=== PATIENT | male | born 1950 | race Caucasian/White ===

== ENCOUNTER → 2017-07-23 | Outpatient (CLI) | payer MEDICARE, OTHER ==
--- NOTE | 2017-07-23 14:40 | CONS ---
CONSULTATION This is a consultation note for sleep apnea. A 66-year-old male patient was referred to me for evaluation of obstructive sleep apnea as the patient has a quite high suspicion for underlying CHRISSIE and sleep breathing disorder. He is very sleepy and he carries an Randolph score of 16. He goes to bed around 11 p.m., wakes up somewhere between 9 to 10 a.m. in the morning. He wakes up 2 to 3 times in the middle of the night to use the bathroom. He snores and he has been told he quits breathing. Currently, he is living with an uncle and a friend. He prefers to sleep on his back. He watches TV in his bedroom. He has no sleep paralysis, hallucinations or cataplexy. No recent weight gain or weight loss. He is morbidly and chronically obese. PAST MEDICAL HISTORY: Obesity, hypertension, chronic A. fib, diabetes mellitus, hyperlipidemia, tremors, impaired hearing and currently is wearing hearing aids. SURGICAL HISTORY: Cholecystectomy. MEDICATIONS: Include amiodarone 200 mg p.o. daily, aspirin 81 mg p.o. daily, insulin sliding scale with coverage, ferrous sulfate 325 daily, vitamin D 91086 units q. week, hydralazine 100 mg 1 tablet b.i.d., metoprolol 50 mg twice a day, NovoLog mix 70/30, 115 units in the morning and 45 units in the evening, pravastatin 80 mg p.o. daily, Xarelto 20 mg p.o. daily. SOCIAL HISTORY: Ex-smoker who quit in 2009. No history of alcohol, no history of IV drugs. FAMILY HISTORY: Negative for sleep apnea. REVIEW OF SYSTEMS: A 12-point review of system was done. Positive findings are mentioned above in the history of present illness. No history of waking up choking or gasping for air. He has nocturia. No grinding of the teeth. No sleepwalking, no dry mouth. No anxiety or panic attacks, no palpitation, no heartburn. No restlessness in the lower extremities. No sleepwalking or sleep talking. No anxiety, no depression. No claustrophobia. He wakes up tired and sleepy. PHYSICAL EXAMINATION: BP is 161/80, pulse 67, respirations 24, temperature 97.9, saturation 98% on room air. Weight 280. Height is 69-1/2 inches. Neck size 18 inches and BMI is 44.1. GENERAL APPEARANCE: Calm, comfortable, no acute distress. HEAD: Short neck, chronic posterior pharynx, Mallampati class IV. There is no goiter or neck masses. LUNGS: Clear to auscultation. HEART: Sounds are regular. Positive S1, S2. No S3. No murmurs. ABDOMEN: Obese, soft, nontender. Organs could not be adequately palpated. EXTREMITIES: Trace edema. There is no cyanosis or clubbing. IMPRESSION: 1. Obstructive apnea. Sleep apnea as clinically suspected and the patient is currently under investigation. 2. Loud snoring. 3. Chronic hypersomnia with an Randolph score of 19. 4. History of paroxysmal atrial fibrillation. 5. Hypertension. 6. Obesity with a body mass index of 44. 7. Diabetes mellitus. 8. Hyperlipidemia. 9. Tremors. 10.Impaired hearing. PLAN: 1. Encourage weight loss. 2. Recommend sleeping in a sidewise body position with the head of the bed elevated at 20-30 degrees. 3. Will proceed with a screening polysomnogram and make further recommendations, depending on the results of the sleep study. MMODL / IJN: [id number] /
== END | disposition home or self-care (01) ==
LOC: SLEEP 13:16
PROVIDERS: ATTEND Internal Medicine Critical Care Medicine
DX: G47.10 Hypersomnia, unspecified (principal); R06.83 Snoring; I48.0 Paroxysmal atrial fibrillation; I10 Essential (primary) hypertension; E66.9 Obesity, unspecified; E11.9 Type 2 diabetes mellitus without complications; E78.5 Hyperlipidemia, unspecified; R25.1 Tremor, unspecified; H91.90 Unspecified hearing loss, unspecified ear; Z90.49 Acquired absence of other specified parts of digestive tract; Z79.82 Long term (current) use of aspirin; Z79.84 Long term (current) use of oral hypoglycemic drugs; Z68.41 Body mass index [BMI] 40.0-44.9, adult; Z79.4 Long term (current) use of insulin; Z79.899 Other long term (current) drug therapy; Z87.891 Personal history of nicotine dependence
CPT/HCPCS: 99211

== ENCOUNTER 2017-09-03 10:08 | Day surgery (SDC) | payer MEDICARE, OTHER ==
[2017-08-30 10:27] VITALS: BMI 38.6
[~2017-09-03 10:08] MED LIST: LACTATED RINGERS 1,000 ML IV SCH; MIDAZOLAM 2 MG/2 ML VIAL IV PRN; SODIUM CHLORIDE 0.9% 1,000 ML IV SCH; fentaNYL (PF) 50 MCG/ML 2 ML AMP IV PRN
[2017-09-03] MEDS ORDERED: HEPARIN SODIUM 1,000 UN/ML (10ML VL) ONE (10:29)
[2017-09-03 10:54] LABS: Glucose,Whole Blood 304 mg/dL (75-99)
[2017-09-03 10:58] LABS: Basophils # (A) 0.1 k/uL (0-0.2); Basophils % (A) 1 %; Eosinophils # (A) 0.2 k/uL (0-0.7); Eosinophils % (A) 3 %; HCT 49.2 % (39.0-53.0); HGB 16.6 gm/dL (13.0-17.5); Lymphocytes # (A) 1.4 k/uL (1.0-4.8); Lymphocytes % (A) 19 %; MCH 31.7 pg (25.0-35.0); MCHC 33.7 g/dL (31.0-37.0); MCV 93.9 fL (80.0-100.0); Mean Platelet Volume 7.3; Monocytes # (A) 0.6 k/uL (0-1.0); Monocytes % (A) 8 %; Neutrophils % (A) 67 %; Platelet Count 223 k/uL (150-450); RBC 5.24 m/uL (4.30-5.90); RDW 12.8 % (11.5-15.5); WBC 7.4 k/uL (3.8-10.6)
[2017-09-03 11:00] VITALS: PULSE 74; RESP 18; TEMP 98.1
[2017-09-03 11:08] VITALS: BP 182/94
[2017-09-03 11:10] LABS: Calcium 9.3 mg/dL (8.4-10.2); Potassium 4.9 mmol/L (3.5-5.1)
[2017-09-03] MEDS ORDERED: INSULIN ASPART 100 UNIT/ML 1 ML 10 ML VIAL SQ SCH (12:30)
== END 2017-09-03 14:00 | disposition home or self-care (01) ==
LOC: CATHEP 10:08
PROVIDERS: ATTEND Internal Medicine Clinical Cardiac Electrophysiology
DX: I48.0 Paroxysmal atrial fibrillation (principal); Z53.9 Procedure and treatment not carried out, unspecified reason; I25.10 Atherosclerotic heart disease of native coronary artery without angina pectoris; I12.9 Hypertensive chronic kidney disease with stage 1 through stage 4 chronic kidney disease, or unspecified chronic kidney disease; N18.3 Chronic kidney disease, stage 3 (moderate); E11.22 Type 2 diabetes mellitus with diabetic chronic kidney disease; E78.5 Hyperlipidemia, unspecified; I48.92 Unspecified atrial flutter; I25.2 Old myocardial infarction; Z79.01 Long term (current) use of anticoagulants; Z79.4 Long term (current) use of insulin; Z79.899 Other long term (current) drug therapy; Z88.5 Allergy status to narcotic agent; Z87.891 Personal history of nicotine dependence
CPT/HCPCS: 80048; 85025

== ENCOUNTER 2019-12-30 04:42 | Inpatient (IN) | payer MEDICARE, OTHER ==
[2019-12-30] MEDS ORDERED: NITROGLYCERIN-D5W PMX 50 MG in DEXTROSE/WATER 1 250ML.BAG IV STA (04:44)
[2019-12-30] MEDS ORDERED: SODIUM CHLORIDE 0.9% 1,000 ML IV STA (04:44)
[2019-12-30] MEDS ORDERED: MORPHINE SULFATE 4 MG/ML SYRINGE IV STA (04:45)
[2019-12-30 05:04] LABS: Basophils # (A) 0.1 k/uL (0-0.2); Basophils % (A) 1 %; Eosinophils # (A) 0.4 k/uL (0-0.7); Eosinophils % (A) 2 %; HCT 44.5 % (39.0-53.0); HGB 14.5 gm/dL (13.0-17.5); Lymphocytes # (A) 2.5 k/uL (1.0-4.8); Lymphocytes % (A) 17 %; MCHC 32.7 g/dL (31.0-37.0); Mean Platelet Volume 7.5; Monocytes # (A) 0.8 k/uL (0-1.0); Monocytes % (A) 5 %; Neutrophils # (A) 10.8 k/uL (1.3-7.7); Neutrophils % (A) 73 %; Platelet Count 316 k/uL (150-450); RBC 4.54 m/uL (4.30-5.90); WBC 14.8 k/uL (3.8-10.6)
[2019-12-30 05:15] LABS: Albumin 4.4 g/dL (3.5-5.0); Calcium 8.8 mg/dL (8.4-10.2); D-Dimer 0.52 mg/L FEU (<0.60); Partial Thromboplastin Time 30.4 sec (22.0-30.0); Potassium 4.4 mmol/L (3.5-5.1); Prothrombin Time 10.8 sec (9.0-12.0); Total Bilirubin 0.6 mg/dL (0.2-1.3); Total Protein 7.8 g/dL (6.3-8.2)
--- NOTE | 2019-12-30 05:25 | XR ---
EXAM: XR Chest, 1 View CLINICAL HISTORY: ITS.REASON XR Reason: dyspnea TECHNIQUE: Frontal view of the chest. COMPARISON: No relevant prior studies available. FINDINGS/IMPRESSION: Patchy perihilar opacities, suspicious for mild pulmonary edema. Trace bilateral pleural effusions. No pneumothorax. Cardiomegaly.
[2019-12-30] MEDS: FUROSEMIDE 10 MG/ML 4 ML VIAL IV SCH ×2 (07:07→18:13)
--- NOTE | 2019-12-30 07:45 | ED ---
SOB HPI - General Chief Complaint: Shortness of Breath Stated Complaint: Respiratory Distress Time Seen by Provider: 12/30/19 04:44 Source: patient, EMS Mode of arrival: EMS Limitations: no limitations - History of Present Illness Initial Comments: This patient is 69-year-old man with history of previous episodes of heart failure who states that he has had some worsening shortness of breath going on for number days. Over the tonight's seem to be getting much worse and EMS was called. Patient states that his breathing is worse if he lies flat. Patient denies fever or chills. No chest pain. Occasional cough. He has not noted leg pain or swelling. No change in urination or bowel movements. MD Complaint: shortness of breath -: days(s) Severity: severe Severity scale (1-10): 0 Consistency: constant Improves With: oxygen Worsens With: lying flat Known History Of: congestive heart failure Associated Symptoms: denies other symptoms Treatments Prior to Arrival: oxygen, bronchodilator - Related Data Home Oxygen Therapy: No Home Medications Medication Instructions Recorded Confirmed Ferrous Sulfate [Iron] 325 mg PO DAILY 08/30/17 12/30/19 Insuln Asp Prt/Insulin Aspart 6 unit SQ W/SUPPER 08/30/17 12/30/19 [NovoLOG MIX 70-30 VIAL] Insuln Asp Prt/Insulin Aspart 12 unit SQ QAM 08/30/17 12/30/19 [NovoLOG MIX 70-30 VIAL] Pravastatin Sodium 80 mg PO HS 08/30/17 12/30/19 Rivaroxaban [Xarelto] 20 mg PO DAILY 08/30/17 12/30/19 hydrALAZINE HCL [Apresoline] 100 mg PO TID 08/30/17 12/30/19 Losartan Potassium 50 mg PO DAILY 12/30/19 12/30/19 Metoprolol Succinate [Toprol XL] 100 mg PO DAILY 12/30/19 01/01/20 Omeprazole 40 mg PO DAILY 12/30/19 12/30/19 metFORMIN HCL 500 mg PO BID 12/30/19 12/30/19 Previous Rx's Medication Instructions Recorded Furosemide [Lasix] 40 mg PO BID #0 tablet 01/01/20 Spironolactone [Aldactone] 25 mg PO DAILY #0 tablet 01/01/20 Allergies Allergy/AdvReac Type Severity Reaction Status Date / Time codeine AdvReac Severe Verified 12/30/19 08:19 insomnia Review of Systems ROS Statement: Those systems with pertinent positive or pertinent negative responses have been documented in the HPI. ROS Other: All systems not noted in ROS Statement are negative. Constitutional: Denies: fever, chills, weakness Respiratory: Reports: as per HPI, cough, dyspnea. Denies: hemoptysis Cardiovascular: Reports: orthopnea. Denies: chest pain, palpitations, edema, syncope Gastrointestinal: Denies: abdominal pain, nausea, vomiting Genitourinary: Denies: dysuria, hematuria Musculoskeletal: Denies: back pain Skin: Denies: rash Neurological: Denies: headache, weakness, numbness Past Medical History Past Medical History: Unable to Obtain History of Any Multi-Drug Resistant Organisms: Unobtainable Past Surgical History: Unable to Obtain Past Psychological History: Unable to Obtain Smoking Status: Unknown if ever smoked Past Alcohol Use History: Unable to Obtain Past Drug Use History: Unable to Obtain - Past Family History Father Family Medical History: Myocardial Infarction ([place]) Additional Family Medical History / Comment(s): Father of a [place] but pt cannot recall at what age. Mother Family Medical History: Cancer Additional Family Medical History / Comment(s): Pt cannot recall type of cancer. General Exam Limitations: no limitations General appearance: alert, in no apparent distress Head exam: Present: atraumatic, normocephalic Eye exam: Present: normal appearance. Absent: scleral icterus, conjunctival injection Neck exam: Present: normal inspection Respiratory exam: Present: respiratory distress, wheezes, rales, accessory muscle use. Absent: normal lung sounds bilaterally, rhonchi, stridor, decreased breath sounds, prolonged expiratory Cardiovascular Exam: Present: regular rate, normal rhythm, normal heart sounds. Absent: systolic murmur, diastolic murmur, rubs GI/Abdominal exam: Present: soft. Absent: tenderness, guarding, rebound, rigid Extremities exam: Present: normal inspection, normal capillary refill. Absent: pedal edema, calf tenderness Back exam: Present: normal inspection. Absent: CVA tenderness (R), CVA tenderness (L) Neurological exam: Present: alert Skin exam: Present: warm, dry, intact, normal color. Absent: rash Course Vital Signs 12/30/19 12/30/19 12/30/19 04:45 04:55 05:00 Temperature 97.4 F L Pulse Rate 86 75 Respiratory 24 44 H 42 H Rate Blood Pressure 153/90 O2 Sat by Pulse 87 L 96 Oximetry 12/30/19 12/30/19 12/30/19 05:05 05:25 06:30 Temperature Pulse Rate 78 70 Respiratory 32 H 24 Rate Blood Pressure 144/106 150/82 129/80 O2 Sat by Pulse 95 98 Oximetry 12/30/19 12/30/19 12/30/19 06:50 07:25 09:00 Temperature 98.2 F Pulse Rate 66 64 70 Respiratory 20 20 18 Rate Blood Pressure 119/76 123/75 137/85 O2 Sat by Pulse 100 100 96 Oximetry 12/30/19 12/30/19 10:25 11:41 Temperature 98.2 F Pulse Rate 68 67 Respiratory 18 22 Rate Blood Pressure 145/77 131/106 O2 Sat by Pulse 98 97 Oximetry Medical Decision Making - Medical Decision Making Patient is 69-year-old man brought by EMS to be evaluated for respiratory distress. Arrival he was hypertensive and patient placed on BiPAP and given IV nitroglycerin aliquots by myself at the bedside with constant reevaluation. This did improve his blood pressure and the respiratory distress and then began to resolve as well. Patient admitted with cardiology consultation and echocardiogram scheduled. - Lab Data Result diagrams: 12/30/19 04:53 12/31/19 07:50 Lab Results 12/30/19 12/30/19 12/30/19 Range/Units 04:53 04:53 04:53 WBC 14.8 H (3.8-10.6) k/uL RBC 4.54 (4.30-5.90) m/uL Hgb 14.5 (13.0-17.5) gm/dL Hct 44.5 (39.0-53.0) % MCV 98.0 (80.0-100.0) fL MCH 32.0 (25.0-35.0) pg MCHC 32.7 (31.0-37.0) g/dL RDW 13.0 (11.5-15.5) % Plt Count 316 (150-450) k/uL Neutrophils % 73 % Lymphocytes % 17 % Monocytes % 5 % Eosinophils % 2 % Basophils % 1 % Neutrophils # 10.8 H (1.3-7.7) k/uL Lymphocytes # 2.5 (1.0-4.8) k/uL Monocytes # 0.8 (0-1.0) k/uL Eosinophils # 0.4 (0-0.7) k/uL Basophils # 0.1 (0-0.2) k/uL PT 10.8 (9.0-12.0) sec INR 1.0 (<1.2) APTT 30.4 H (22.0-30.0) sec D-Dimer 0.52 (<0.60) mg/L FEU Sodium 138 (137-145) mmol/L Potassium 4.4 (3.5-5.1) mmol/L Chloride 108 H (98-107) mmol/L Carbon Dioxide 21 L (22-30) mmol/L Anion Gap 9 mmol/L BUN 31 H (9-20) mg/dL Creatinine 1.62 H (0.66-1.25) mg/dL Est GFR (CKD-EPI)AfAm 49 (>60 ml/min/1.73 sqM) Est GFR (CKD-EPI)NonAf 42 (>60 ml/min/1.73 sqM) Glucose 207 H (74-99) mg/dL Estimated Ave Glu mg/dL Hemoglobin A1c (4.0-6.0) % Plasma Lactic Acid Russell (0.7-2.0) mmol/L Calcium 8.8 (8.4-10.2) mg/dL Total Bilirubin 0.6 (0.2-1.3) mg/dL AST 21 (17-59) U/L ALT 16 (4-49) U/L Alkaline Phosphatase 126 (38-126) U/L Troponin I (0.000-0.034) ng/mL NT-Pro-B Natriuret Pep pg/mL Total Protein 7.8 (6.3-8.2) g/dL Albumin 4.4 (3.5-5.0) g/dL 12/30/19 12/30/19 12/30/19 Range/Units 04:53 04:53 04:53 WBC (3.8-10.6) k/uL RBC (4.30-5.90) m/uL Hgb (13.0-17.5) gm/dL Hct (39.0-53.0) % MCV (80.0-100.0) fL MCH (25.0-35.0) pg MCHC (31.0-37.0) g/dL RDW (11.5-15.5) % Plt Count (150-450) k/uL Neutrophils % % Lymphocytes % % Monocytes % % Eosinophils % % Basophils % % Neutrophils # (1.3-7.7) k/uL Lymphocytes # (1.0-4.8) k/uL Monocytes # (0-1.0) k/uL Eosinophils # (0-0.7) k/uL Basophils # (0-0.2) k/uL PT (9.0-12.0) sec INR (<1.2) APTT (22.0-30.0) sec D-Dimer (<0.60) mg/L FEU Sodium (137-145) mmol/L Potassium (3.5-5.1) mmol/L Chloride (98-107) mmol/L Carbon Dioxide (22-30) mmol/L Anion Gap mmol/L BUN (9-20) mg/dL Creatinine (0.66-1.25) mg/dL Est GFR (CKD-EPI)AfAm (>60 ml/min/1.73 sqM) Est GFR (CKD-EPI)NonAf (>60 ml/min/1.73 sqM) Glucose (74-99) mg/dL Estimated Ave Glu mg/dL Hemoglobin A1c (4.0-6.0) % Plasma Lactic Acid Russell 1.1 (0.7-2.0) mmol/L Calcium (8.4-10.2) mg/dL Total Bilirubin (0.2-1.3) mg/dL AST (17-59) U/L ALT (4-49) U/L Alkaline Phosphatase (38-126) U/L Troponin I <0.012 (0.000-0.034) ng/mL NT-Pro-B Natriuret Pep 1970 pg/mL Total Protein (6.3-8.2) g/dL Albumin (3.5-5.0) g/dL 12/30/19 Range/Units 04:53 WBC (3.8-10.6) k/uL RBC (4.30-5.90) m/uL Hgb (13.0-17.5) gm/dL Hct (39.0-53.0) % MCV (80.0-100.0) fL MCH (25.0-35.0) pg MCHC (31.0-37.0) g/dL RDW (11.5-15.5) % Plt Count (150-450) k/uL Neutrophils % % Lymphocytes % % Monocytes % % Eosinophils % % Basophils % % Neutrophils # (1.3-7.7) k/uL Lymphocytes # (1.0-4.8) k/uL Monocytes # (0-1.0) k/uL Eosinophils # (0-0.7) k/uL Basophils # (0-0.2) k/uL PT (9.0-12.0) sec INR (<1.2) APTT (22.0-30.0) sec D-Dimer (<0.60) mg/L FEU Sodium (137-145) mmol/L Potassium (3.5-5.1) mmol/L Chloride (98-107) mmol/L Carbon Dioxide (22-30) mmol/L Anion Gap mmol/L BUN (9-20) mg/dL Creatinine (0.66-1.25) mg/dL Est GFR (CKD-EPI)AfAm (>60 ml/min/1.73 sqM) Est GFR (CKD-EPI)NonAf (>60 ml/min/1.73 sqM) Glucose (74-99) mg/dL Estimated Ave Glu mg/dL 171 Hemoglobin A1c 7.6 H (4.0-6.0) % Plasma Lactic Acid Russell (0.7-2.0) mmol/L Calcium (8.4-10.2) mg/dL Total Bilirubin (0.2-1.3) mg/dL AST (17-59) U/L ALT (4-49) U/L Alkaline Phosphatase (38-126) U/L Troponin I (0.000-0.034) ng/mL NT-Pro-B Natriuret Pep pg/mL Total Protein (6.3-8.2) g/dL Albumin (3.5-5.0) g/dL - EKG Data -: EKG Interpreted by [place] EKG shows normal: sinus rhythm, axis (Normal), intervals (Normal), QRS complexes (Possible old septal infarct), ST-T waves (Normal) Rate: normal (Rate 83 bpm) Critical Care Time Critical Care Time: Yes (35 minutes) Disposition Clinical Impression: Acute pulmonary edema, Congestive heart failure, Acute kidney injury Disposition: ADMITTED IP TO THIS HOSP Condition: Fair
[2019-12-30 12:02] LABS: Glucose,Whole Blood 169 mg/dL (75-99)
[2019-12-30] MEDS ORDERED: LOSARTAN 50 MG TAB PO SCH (12:30)
[2019-12-30] MEDS ORDERED: METOPROLOL SUCCINATE (ER) 100 MG TAB.ER.24H PO SCH (12:30)
[2019-12-30] MEDS ORDERED: DILTIAZEM ORAL 60 MG TAB PO SCH (12:30)
[2019-12-30] MEDS: hydrALAZINE HCL 50 MG TAB PO SCH ×3 (12:54→21:00)
[2019-12-30] MEDS ORDERED: LOSARTAN 50 MG TAB PO STA (13:03)
[2019-12-30] MEDS ORDERED: cloNIDine HCL 0.2 MG TAB PO SCH (13:15)
[2019-12-30] MEDS: INSULN ASP PRT/INSULIN ASPART 100 UNIT/ML 10 ML VIAL SQ SCH ×2 (13:31→18:11)
[2019-12-30] MEDS: PANTOPRAZOLE 40 MG TABLET PO SCH (13:31)
--- NOTE | 2019-12-30 13:48 | ECHOF ---
Referral Reason:CHF exacerbation MEASUREMENTS -------- HEIGHT: 180.3 cm WEIGHT: 99.8 kg BP: 119/76 RVIDd: 2.4 cm (< 3.3) IVSd: 1.4 cm (0.6 - 1.1) LVIDd: 5.1 cm (3.9 - 5.3) LVPWd: 1.2 cm (0.6 - 1.1) IVSs: 1.7 cm LVIDs: 2.1 cm LVPWs: 2.1 cm Ao Diam: 2.4 cm (2.0 - 3.7) AV Cusp: 1.9 cm (1.5 - 2.6) LA Diam: 2.7 cm (2.7 - 3.8) MV EXCURSION: 14.577 mm (> 18.000) MV EF SLOPE: 60 mm/s (70 - 150) EPSS: 0.8 cm MV E Cody: 1.08 m/s MV DecT: 175 ms MV A Cody: 0.53 m/s MV E/A Ratio: 2.02 RAP: 5.00 mmHg RVSP: 9.56 mmHg FINDINGS -------- This was a technically difficult study with suboptimal views. The left ventricular size is normal. There is mild concentric left ventricular hypertrophy. Overa ll left ventricular systolic function is normal with, an EF between 55 - 60 %. The right ventricle is normal in size. The left atrial size is normal. The right atrial size is normal. Lumason used The aortic valve was not well visualized. The mitral valve is normal. There is trace mitral regurgitation. The tricuspid valve appears structurally normal. Trace tricuspid regurgitation present. Right elham tricular systolic pressure is normal at < 35 mmHg. The pulmonic valve was not well visualized. The aortic root size is normal. IVC Not well visulized. There is no pericardial effusion. CONCLUSIONS -------- 1. The left ventricular size is normal. 2. There is mild concentric left ventricular hypertrophy. 3. Overall left ventricular systolic function is normal with, an EF between 55 - 60 %. 4. There is trace mitral regurgitation. 5. Trace tricuspid regurgitation present. 6. There is no pericardial effusion. SWEATER DESIGNER: Yennifer Craft RD
--- NOTE | 2019-12-30 13:53 | P.CRDCN ---
History of Present Illness History of present illness: HISTORY OF PRESENTING ILLNESS This is a pleasant 69-year-old male past medical history significant for paroxysmal atrial fibrillation, hypertension and dyslipidemia. He follows in the office with Dr. Rivas. He recently saw Dr. Rivas 09/2019 after not being in the office since 2018. Prior to coming to the office he had been non- compliant with all of his medications including anti-diabetic medications. Supposedly he has been taking his medications recently. We have been asked to see in consultation for heart failure. He called EMS last night due to worsening shortness of breath over the previous couple of days. He was having orthopnea and PND as well. He denies any associated chest pain, dizziness or palpitations. On arrival he was quite tachyneic with a pulse ox of 87%. Blood pressures were around 150 systolic. He was placed on bipap, started on nitro infusion and given IV lasix. He is currently seen and examined sitting up in bed in no acute distress. His breathing is quite stable with no tachynea or hypoxia noted. In September 2019 he was admitted into [facility] and underwent cardiac evaluation including echocardiogram that revealed preserved LV systolic function with ejection fraction 55-60% with no evidence of wall motion abnormalities and moderate concentric LVH. He underwent cardiac catheterization in 2011 revealing a 50% disease in the mid LAD, mild irregularities of the RCA and normal circumflex artery. Most recent stress test in the office with a Lexiscan stress test in 2017 was negative for reversibility. DIAGNOSTICS EKG reveals sinus mechanism with poor R-wave progression. Chest xray reveals patchy perihilar opacity suspicious for mild pulmonary edema with trace bilateral pleural effusions. Laboratory reviewed, WBC 14.8, hemoglobin 14.5, platelets 316, d-dimer 0.52, sodium 138, potassium 4.4, creatinine 1.62, troponins negative 3 and NT proBNP 1970. Current cardiac medications include hydralazine 100 mg 3 times a day, pravastatin 80 mg daily, Xarelto 20 mg daily, diltiazem 60 mg 3 times a day, losartan 50 mg daily and Toprol 100 mg twice a day. REVIEW OF SYSTEMS At the time of my exam: CONSTITUTIONAL: Denies fever or chills. CARDIOVASCULAR: Complains of shortness of breath and orthopnea. Denies chest pain, PND or palpitations. RESPIRATORY: Denies cough. GASTROINTESTINAL: Denies abdominal pain, diarrhea, constipation, nausea or vomiting. MUSCULOSKELETAL: Denies myalgias. NEUROLOGIC: Denies numbness, tingling or weakness. ENDOCRINE: Denies fatigue, weight change, polydipsia or polyurina. GENITOURINARY: Denies burning, hematuria or urgency with micturation. HEMATOLOGIC: Denies history of anemia or bleeding. PHYSICAL EXAMINATION Blood pressure 184/85 heart rate 73 afebrile and maintaining oxygen saturation on nasal cannula. CONSTITUTIONAL: No apparent distress. HEENT: Head is normocephalic. Pupils are equal, round. Sclerae anicteric. Mucous membranes of the mouth are moist. No JVD. Right carotid bruit auscultated, no bruit on the left. CHEST EXAMINATION: Soft bibasilar rales, diminished bilaterally, no wheezes or rhonchi. No chest wall tenderness is noted on palpation or with deep breathing. HEART EXAMINATION: Regular rate and rhythm. S1, S2 heard. No murmurs, gallops or rub. ABDOMEN: Soft, nontender. Positive bowel sounds. EXTREMITIES: 2+ peripheral pulses, no lower extremity edema and no calf tenderness. NEUROLOGIC EXAMINATION: Patient is awake, alert and oriented x3. ASSESSMENT Hypoxic respiratory failure Acute congestive heart failure, likely diastolic in recent echocardiogram revealing preserved LV systolic function although very mild. Leukocytosis Paroxysmal atrial fibrillation on xarelto, currently maintaining sinus mechanism Hypertension Dyslipidemia PLAN He does not appear to be in significant heart failure at the time of our evaluation. BNP is only slightly elevated. We will continue gently diuresis and request a high resolution CT of the chest to assess for underlying pulmonary fibrosis. Discontinue cardizem. Decrease toprol to 100 mg daily. Continue losartan 50 mg daily, xarelto 20 mg at HS and hydralazine 100 mg TID. Document accurate intake and output along with daily weights. Follow renal function and electrolytes in the morning. Recent echocardiogram reviewed from [facility], repeat ordered here in the ER will also be reviewed. Further recommendations to follow based on clinical course. Thank you kindly for this consultation. Nurse Practitioner note has been reviewed, I agree with a documented findings and plan of care. Patient was seen and examined. Past Medical History Past Medical History: Atrial Fibrillation, Asthma, Coronary Artery Disease (CAD), Heart Failure, Diabetes Mellitus, GI Bleed, Hearing Disorder / Deafness, Hyperlipidemia, Hypertension Additional Past Medical History / Comment(s): Afib with RVR/ablation, IDDM type II, pt denies hx of CHRISSIE/CKD as documented in past medical record and does not know why he takes iron, EKUK bilaterally-wears aide in R ear History of Any Multi-Drug Resistant Organisms: None Reported Past Surgical History: Cardiac Ablation, Cholecystectomy, Heart Catheterization Additional Past Surgical History / Comment(s): 2011 cardiac cath, R eye surgery /lens implant-pt believes d/t infection, colonoscopy. Past Anesthesia/Blood Transfusion Reactions: No Reported Reaction Smoking Status: Former smoker - Past Family History Father Family Medical History: Myocardial Infarction ([place]) Additional Family Medical History / Comment(s): Father of a [place] but pt cannot recall at what age. Mother Family Medical History: Cancer Additional Family Medical History / Comment(s): Pt cannot recall type of cancer. Medications and Allergies Home Medications Medication Instructions Recorded Confirmed Type Ferrous Sulfate [Iron] 325 mg PO DAILY 08/30/17 12/30/19 History Insuln Asp Prt/Insulin Aspart 6 unit SQ W/SUPPER 08/30/17 12/30/19 History [NovoLOG MIX 70-30 VIAL] Insuln Asp Prt/Insulin Aspart 12 unit SQ QAM 08/30/17 12/30/19 History [NovoLOG MIX 70-30 VIAL] Pravastatin Sodium 80 mg PO HS 08/30/17 12/30/19 History Rivaroxaban [Xarelto] 20 mg PO DAILY 08/30/17 12/30/19 History hydrALAZINE HCL [Apresoline] 100 mg PO TID 08/30/17 12/30/19 History Losartan Potassium 50 mg PO DAILY 12/30/19 12/30/19 History Metoprolol Succinate [Toprol XL] 100 mg PO BID 12/30/19 12/30/19 History Omeprazole 40 mg PO DAILY 12/30/19 12/30/19 History dilTIAZem HCL [Diltiazem HCl] 60 mg PO TID 12/30/19 12/30/19 History metFORMIN HCL 500 mg PO BID 12/30/19 12/30/19 History Allergies Allergy/AdvReac Type Severity Reaction Status Date / Time codeine AdvReac Severe Verified 12/30/19 08:19 insomnia Physical Exam Vitals: Vital Signs Temp Pulse Pulse Resp BP BP Pulse Ox 12/30/19 12:31 97.4 F L 73 22 184/85 98 12/30/19 12:10 97.4 F L 12/30/19 12:00 22 12/30/19 11:41 98.2 F 67 22 131/106 97 12/30/19 10:25 68 18 145/77 98 12/30/19 09:00 70 18 137/85 96 12/30/19 07:25 98.2 F 64 20 123/75 100 12/30/19 06:50 66 20 119/76 100 12/30/19 06:30 129/80 12/30/19 05:25 70 24 150/82 98 12/30/19 05:05 78 32 H 144/106 95 12/30/19 05:00 75 42 H 153/90 96 12/30/19 04:55 44 H 12/30/19 04:45 97.4 F L 86 24 87 L Intake and Output 12/29/19 12/30/19 12/30/19 22:59 06:59 14:59 Intake Total 4.075 Balance 4.075 Intake: Intake, IV Titration 4.075 Amount Nitroglycerin-D5w Pmx 50 4.075 mg In Dextrose/Water 1 250ml.bag @ 5 MCG/MIN 1.5 mls/hr IV .Q24H STA Rx#: [id number] Other: Weight 99.79 kg 99.79 kg Results 12/30/19 04:53 12/30/19 04:53 Cardiac Enzymes 12/30/19 12/30/19 12/30/19 Range/Units 04:53 04:53 08:17 AST 21 (17-59) U/L Troponin I <0.012 <0.012 (0.000-0.034) ng/mL 12/30/19 Range/Units 11:30 AST (17-59) U/L Troponin I <0.012 (0.000-0.034) ng/mL Coagulation 12/30/19 Range/Units 04:53 PT 10.8 (9.0-12.0) sec APTT 30.4 H (22.0-30.0) sec CBC 12/30/19 Range/Units 04:53 WBC 14.8 H (3.8-10.6) k/uL RBC 4.54 (4.30-5.90) m/uL Hgb 14.5 (13.0-17.5) gm/dL Hct 44.5 (39.0-53.0) % Plt Count 316 (150-450) k/uL Comprehensive Metabolic Panel 12/30/19 Range/Units 04:53 Sodium 138 (137-145) mmol/L Potassium 4.4 (3.5-5.1) mmol/L Chloride 108 H (98-107) mmol/L Carbon Dioxide 21 L (22-30) mmol/L BUN 31 H (9-20) mg/dL Creatinine 1.62 H (0.66-1.25) mg/dL Glucose 207 H (74-99) mg/dL Calcium 8.8 (8.4-10.2) mg/dL AST 21 (17-59) U/L ALT 16 (4-49) U/L Alkaline Phosphatase 126 (38-126) U/L Total Protein 7.8 (6.3-8.2) g/dL Albumin 4.4 (3.5-5.0) g/dL Current Medications Generic Name Dose Route Start Last Admin Trade Name Freq PRN Reason Stop Dose Admin Clonidine 0.2 mg 12/30/19 13:15 Clonidine Hcl 0.2 Mg Tab PO QID NATALYA Furosemide 40 mg 12/30/19 07:00 12/30/19 07:07 Furosemide 10 Mg/Ml 4 Ml Vial IV 40 mg Q12H NATALYA Administration Hydralazine HCl 100 mg 12/30/19 12:30 12/30/19 12:54 Hydralazine Hcl 50 Mg Tab PO 100 mg TID NATALYA Administration Sodium Chloride 1,000 mls @ 20 mls/hr 12/30/19 04:44 12/30/19 04:51 Saline 0.9% IV 12/31/19 04:43 20 mls/hr .Q24H STA Administration Nitroglycerin/Dextrose 50 mg/ 250 mls @ 1.5 mls/hr 12/30/19 04:44 12/30/19 07:33 IV Solution IV 12/31/19 04:43 0 mcg/min .Q24H STA 0 mls/hr Titration Protocol 5 MCG/MIN Insulin Aspart 6 unit 12/30/19 17:30 Insuln Asp Prt/Insulin Aspart 100 Unit/Ml 10 Ml Vial SQ W/SUPPER NATALYA Insulin Aspart 12 unit 12/30/19 13:15 Insuln Asp Prt/Insulin Aspart 100 Unit/Ml 10 Ml Vial SQ QAM NATALYA Losartan Potassium 100 mg 12/30/19 13:03 Losartan 50 Mg Tab PO 12/30/19 13:04 ONCE STA Metoprolol Succinate 100 mg 12/30/19 12:30 12/30/19 12:53 Metoprolol Succinate (Er) 100 Mg Tab.Er.24h PO 100 mg BID NATALYA Administration Non-Formulary Medication 40 mg 12/30/19 13:15 Omeprazole [Omeprazole] PO DAILY NATALYA Pravastatin Sodium 80 mg 12/30/19 21:00 Pravastatin Sodium 80 Mg Tab PO HS NATALYA Rivaroxaban 20 mg 12/30/19 13:15 Rivaroxaban 20 Mg Tab PO DAILY NATALYA Sodium Chloride 10 ml 12/30/19 09:00 12/30/19 10:38 Sodium Chloride 0.9% Flush 10 Ml Syringe IV 10 ml BID NATALYA Administration Intake and Output 12/29/19 12/30/19 12/30/19 22:59 06:59 14:59 Intake Total 4.075 Balance 4.075 Intake: Intake, IV Titration 4.075 Amount Nitroglycerin-D5w Pmx 50 4.075 mg In Dextrose/Water 1 250ml.bag @ 5 MCG/MIN 1.5 mls/hr IV .Q24H STA Rx#: [id number] Other: Weight 99.79 kg 99.79 kg Patient Weight 12/31/19 06:59 Weight 99.79 kg 12/30/19 04:53 12/30/19 04:53
[2019-12-30 14:00] VITALS: BMI 31.5
[2019-12-30 16:52] LABS: Glucose,Whole Blood 247 mg/dL (75-99)
[2019-12-30] MEDS: RIVAROXABAN 20 MG TAB PO SCH (17:45)
--- NOTE | 2019-12-30 19:53 | CT ---
EXAMINATION TYPE: CT chest wo con DATE OF EXAM: 12/30/2019 COMPARISON: 70 radiograph. HISTORY: SOB, CHF CT DLP: 626.2 mGycm. Automated Exposure Control for Dose Reduction was Utilized. TECHNIQUE: CT scan of the thorax is performed without IV contrast. FINDINGS: LUNGS: Small to moderate bilateral pleural effusions with adjacent atelectasis. There is less promine nt interseptal thickening and superimposed hazy opacities elsewhere, compared to same day radiograph. No pneumothorax. MEDIASTINUM: Lack of IV contrast is noted to limit evaluation for mediastinal and especially hilar ad enopathy. There are no definitive greater than 1 cm hilar or mediastinal lymph nodes. No cardiomega ly or pericardial effusion is seen. OTHER: No additional significant abnormality is seen. IMPRESSION: Bilateral [id number] pleural effusions with adjacent atelectasis. Less prominent interseptal thickening and superimposed hazy opacities, may represent resolving inters titial edema.
[2019-12-30 20:23] LABS: Glucose,Whole Blood 206 mg/dL (75-99)
[2019-12-30 20:37] LABS: Hemoglobin A1C 7.6 % (4.0-6.0)
[2019-12-30] MEDS: PRAVASTATIN SODIUM 80 MG TAB PO SCH (21:00)
--- NOTE | 2019-12-30 22:20 | HP ---
HISTORY AND PHYSICAL CHIEF COMPLAINT: Acute shortness of breath. HISTORY OF PRESENT ILLNESS: This is another admission for this 69-year-old white male with a history of hypertension and diabetes. He recently went several months without any medication because he was afraid to come to the office because of the coronavirus. He was just seen in the office several days ago and was doing well. Apparently he became acutely dyspneic. When he came to emergency room he had a significantly elevated blood pressure and it was thought that he had an episode of flash pulmonary edema. He was treated and was improved and was admitted. REVIEW OF SYSTEMS: He denied any headache, visual changes, focal neurologic deficits, chest pain, hemoptysis, orthopnea, abdominal pain, nausea, vomiting, melena, hematochezia, diarrhea, dysuria, frequency, urgency, incontinence, etc. Past medical history, family history, personal and social histories are otherwise unremarkable and noncontributory. He does not smoke. He is ALLERGIC TO TYLENOL WITH CODEINE. Medications include: 1. Diltiazem 60 mg 3 times a day. 2. Hydralazine 100 mg 3 times a day. 3. Pioglitazone 15 mg once a day. 4. Ferrous sulfate 325 once a day. 5. Omeprazole 40 mg once a day. 6. Metformin 500 mg once a day. 7. NovoLog Mix 70/30, 80 units in the morning and 20 at night. 8. Pravastatin 80 once a day. 9. Losartan 50 once a day. 10.Xarelto 20 mg once a day. PHYSICAL EXAMINATION: Blood pressure 210/120, pulse was 96. Respirations were 35 and he was afebrile. In general, he appeared to be overweight and short of breath. Skin was dry. Head, ears, eyes, nose, mouth and throat were normal. Neck veins were not distended. The carotids were normal. Chest demonstrated poor breath sounds with scattered rales. Cardiac exam demonstrated sinus tachycardia with no murmurs or extra sounds. The abdomen was protuberant, soft, nontender. Extremities were normal. Neurologically he was intact. He is admitted to the hospital with the diagnoses: 1. Malignant hypertension. 2. Acute pulmonary edema. 3. Insulin-dependent diabetes mellitus. 4. Excessive weight. PLAN: 1. Bed rest. 2. IV fluids. 3. Control hypertension. 4. Control blood sugars. 5. Diuresis. 6. Echocardiogram. 7. Cardiology consult. MMTIKAL / IJN: [id number] /
[2019-12-31 06:07] LABS: Glucose,Whole Blood 173 mg/dL (75-99)
[2019-12-31] MEDS: FUROSEMIDE 10 MG/ML 4 ML VIAL IV SCH (06:27)
[2019-12-31] MEDS: PANTOPRAZOLE 40 MG TABLET PO SCH (06:27)
[2019-12-31] MEDS: LOSARTAN 50 MG TAB PO SCH (08:59)
[2019-12-31] MEDS: INSULN ASP PRT/INSULIN ASPART 100 UNIT/ML 10 ML VIAL SQ SCH ×2 (08:59→17:42)
[2019-12-31] MEDS: METOPROLOL SUCCINATE (ER) 100 MG TAB.ER.24H PO SCH (08:59)
[2019-12-31] MEDS: RIVAROXABAN 20 MG TAB PO SCH (08:59)
[2019-12-31] MEDS: hydrALAZINE HCL 50 MG TAB PO SCH ×3 (08:59→21:07)
[2019-12-31 09:08] LABS: Glucose,Whole Blood 252 mg/dL (75-99)
[2019-12-31 09:35] LABS: Calcium 9.1 mg/dL (8.4-10.2); Potassium 3.9 mmol/L (3.5-5.1)
--- NOTE | 2019-12-31 11:07 | P.PN ---
Subjective HISTORY OF PRESENTING ILLNESS This is a pleasant 69-year-old male past medical history significant for paroxysmal atrial fibrillation, hypertension and dyslipidemia. He follows in the office with Dr. Rivas. He is seen and examined sitting up in bed in no acute distress. He states his breathing is better since admission. He denies chest pain, palpitations, nausea or vomiting. Chest CT revealed bilateral small to moderate pleural effusions with adjacent atelectasis. Blood pressure 141/87 heart rate 86 afebrile maintaining oxygen saturation on room air. Laboratory data reviewed, sodium 138, potassium 3.9, creatinine 1.71. Output for the previous 24 hours not accurately documented. Currently maintained on IV diuretics, hydralazine 100 mg 3 times a day, losartan 50 mg daily, Xarelto 20 mg daily and Toprol 100 mg daily. Echocardiogram obtained revealed preserved LV systolic function with ejection fraction 55-60%. PHYSICAL EXAMINATION CONSTITUTIONAL: No apparent distress. HEENT: Head is normocephalic. Pupils are equal, round. Sclerae anicteric. Mucous membranes of the mouth are moist. No JVD. Right carotid bruit auscultated, no bruit on the left. CHEST EXAMINATION: Soft bibasilar rales, diminished bilaterally, no wheezes or rhonchi. No chest wall tenderness is noted on palpation or with deep breathing. HEART EXAMINATION: Regular rate and rhythm. S1, S2 heard. No murmurs, gallops or rub. EXTREMITIES: 2+ peripheral pulses, no lower extremity edema and no calf tenderness. ASSESSMENT Hypoxic respiratory failure Acute congestive heart failure, likely diastolic in recent echocardiogram revealing preserved LV systolic function although very mild. Leukocytosis Paroxysmal atrial fibrillation on xarelto, currently maintaining sinus mechanism Hypertension Dyslipidemia PLAN Change Lasix to 40 mg by mouth twice a day and add a small dose of Aldactone. Stable for discharge from a cardiac perspective. Follow-up with Dr. Rivas in the office in one to 2 weeks. Nurse Practitioner note has been reviewed, I agree with a documented findings and plan of care. Patient was seen and examined. Objective - Vital Signs Vital signs: Vital Signs Temp 97.6 F 12/31/19 08:50 Pulse 86 12/31/19 08:50 Resp 16 12/31/19 08:50 BP 141/87 12/31/19 08:50 Pulse Ox 96 12/31/19 08:50 Intake & Output 12/30/19 12/31/19 12/31/19 18:59 06:59 18:59 Intake Total 484.075 240 Output Total 300 800 Balance 484.075 -300 -560 Weight 99.79 kg 100.1 kg Intake: Intake, IV Titration 4.075 Amount Nitroglycerin-D5w Pmx 50 4.075 mg In Dextrose/Water 1 250ml.bag @ 5 MCG/MIN 1.5 mls/hr IV .Q24H STA Rx#: [id number] Oral 480 240 Output: Urine 300 800 Other: # Voids 1 # Bowel Movements 1 1 - Labs CBC & Chem 7: 12/30/19 04:53 12/31/19 07:50 Labs: Abnormal Lab Results - Last 24 Hours (Table) 12/30/19 12/30/19 12/30/19 Range/Units 04:53 12:00 16:42 POC Glucose (mg/dL) 169 H 247 H (75-99) mg/dL Hemoglobin A1c 7.6 H (4.0-6.0) % 12/30/19 12/31/19 Range/Units 20:13 06:00 POC Glucose (mg/dL) 206 H 173 H (75-99) mg/dL Hemoglobin A1c (4.0-6.0) %
[2019-12-31 12:07] LABS: Glucose,Whole Blood 205 mg/dL (75-99)
[2019-12-31] MEDS: SPIRONOLACTONE 25 MG TAB PO SCH (12:26)
[2019-12-31] MEDS: FUROSEMIDE 40 MG TAB PO SCH (15:37)
[2019-12-31 17:11] LABS: Glucose,Whole Blood 189 mg/dL (75-99)
[2019-12-31 20:34] LABS: Glucose,Whole Blood 192 mg/dL (75-99)
[2019-12-31] MEDS: PRAVASTATIN SODIUM 80 MG TAB PO SCH (21:07)
[2020-01-01 06:15] LABS: Glucose,Whole Blood 194 mg/dL (75-99)
[2020-01-01] MEDS: PANTOPRAZOLE 40 MG TABLET PO SCH (06:21)
[2020-01-01] MEDS: SPIRONOLACTONE 25 MG TAB PO SCH (09:00)
[2020-01-01] MEDS: METOPROLOL SUCCINATE (ER) 100 MG TAB.ER.24H PO SCH (09:00)
[2020-01-01] MEDS: LOSARTAN 50 MG TAB PO SCH (09:00)
[2020-01-01] MEDS: RIVAROXABAN 20 MG TAB PO SCH (09:00)
[2020-01-01] MEDS: hydrALAZINE HCL 50 MG TAB PO SCH (09:00)
[2020-01-01] MEDS: FUROSEMIDE 40 MG TAB PO SCH (09:00)
--- NOTE | 2020-01-01 09:32 | CDI ---
Documentation Clarification Form Date: 01/01/2020 08:45:00 AM From: Joan Nichols RN, CCDS Phone: [phone] Admit Date: 12/30/2019 07:45:00 AM Patient Name: Anthony Schafer Visit Number: [id number] Discharge Date: ATTENTION: The Clinical Documentation Specialists (CDI) and [facility] Coding Staff appreciate your assistance in clarifying documentation. Please respond to the clarification below the line at the bottom and electronically sign. The CDI & [facility] Coding staff will review the response and follow-up if needed. Please note: Queries are made part of the Legal Health Record. If you have any questions, please contact the author of this message via ITS. Dr. Balaji Fountain The patients principal diagnosis has not been clearly identified and requires clarification. 12/29 He presented to ED with the following shortness of breath, worsening if he lies flat. Respiratory exam in ED found him to be in respiratory distress, wheezes, rales, accessory muscle use. He has a known history of congestive heart failure. History/Risk factors: Congestive heart failure, Clinical Indicators: Shortness of breath with known history of congestive heart failure. Chest x-ray on 12/29 showing pulmonary edema. Trace bilateral pleural effusions. 12/29 Vital signs. 153/90 75 42 96 % BIPAP (87% Non-Rebreather) 12/29Lab findings: WBC 14.8, BUN 31, CR 1.62; BNP 1970 EKG Sinus rhythm rate 83 bpm 12/29 ECHO: Overall left ventricular systolic function is normal with, an EF between 55-60% 12/29 ED clinical impression: ac pulmonary edema, Congestive heart failure, acute kidney injury Treatment: Daily weight, I/O Monitor O2 Sat's (Titrate) Lasix 40 mg IV BID 12/29 -12/30 (12/30 change to 40 mg PO Apresoline 100 mg TID Cozaar 50 MG PO DAILY Toprol Xl 100 MG PO DAILY Xarelto 20 mg PO daily 12/29 Cardiology consults: Acute congestive heart failure, likely diastolic in recent echocardiogram revealing preserved LV systolic function although very mild. Hypoxic respiratory failure, paroxysmal atrial fibrillation on Xarelto, currently maintaining sinus mechanism. Plan we will continue gently diuresis. In your professional opinion, can you please clarify which diagnosis, after study, accounted for the patients presenting symptoms and was the reason chiefly responsible for the admission? Acute Congestive Heart Failure, Diastolic Acute Hypoxic Respiratory failure Acute pulmonary edema secondary to Acute Diastolic Congestive Heart Failure Other, Specify (Last Revision: June 2017) MTDD
[2020-01-01 10:11] VITALS: RESP 20
[2020-01-01] MEDS: INSULN ASP PRT/INSULIN ASPART 100 UNIT/ML 10 ML VIAL SQ SCH (10:56)
--- NOTE | 2020-01-01 11:48 | P.PN ---
Subjective HISTORY OF PRESENTING ILLNESS This is a pleasant 69-year-old male past medical history significant for paroxysmal atrial fibrillation, hypertension and dyslipidemia. He follows in the office with Dr. Rivas. He is seen and examined sitting up in bed in no acute distress. He is maintaining oxygen saturation on room air. Blood pressure 129/71 heart rate 106 afebrile maintaining oxygen saturation on room air. PHYSICAL EXAMINATION CONSTITUTIONAL: No apparent distress. HEENT: Head is normocephalic. Pupils are equal, round. Sclerae anicteric. Mucous membranes of the mouth are moist. No JVD. Right carotid bruit auscultated, no bruit on the left. CHEST EXAMINATION: Soft bibasilar rales, diminished bilaterally, no wheezes or rhonchi. No chest wall tenderness is noted on palpation or with deep breathing. HEART EXAMINATION: Regular rate and rhythm. S1, S2 heard. No murmurs, gallops or rub. EXTREMITIES: 2+ peripheral pulses, no lower extremity edema and no calf tenderness. ASSESSMENT Hypoxic respiratory failure Acute congestive heart failure, likely diastolic in recent echocardiogram revealing preserved LV systolic function although very mild. Leukocytosis Paroxysmal atrial fibrillation on xarelto, currently maintaining sinus mechanism Hypertension Dyslipidemia PLAN Stable for discharge from a cardiac perspective. Follow-up with Dr. Rivas in the office in one to 2 weeks. Nurse Practitioner note has been reviewed, I agree with a documented findings and plan of care. Patient was seen and examined. Objective - Vital Signs Vital signs: Vital Signs Temp 97.5 F L 01/01/20 08:00 Pulse 106 H 01/01/20 08:00 Resp 20 01/01/20 08:00 BP 129/71 01/01/20 08:00 Pulse Ox 94 L 01/01/20 08:00 Intake & Output 12/31/19 01/01/20 01/01/20 18:59 06:59 18:59 Intake Total 1220 118 Output Total 2700 Balance -1480 118 Weight 99.8 kg Intake: Oral 1220 118 Output: Urine 2700 - Labs CBC & Chem 7: 12/30/19 04:53 12/31/19 07:50 Labs: Abnormal Lab Results - Last 24 Hours (Table) 12/31/19 12/31/19 12/31/19 Range/Units 11:58 16:59 20:33 POC Glucose (mg/dL) 205 H 189 H 192 H (75-99) mg/dL 01/01/20 Range/Units 06:13 POC Glucose (mg/dL) 194 H (75-99) mg/dL
[2020-01-01 11:56] LABS: Glucose,Whole Blood 259 mg/dL (75-99)
[2020-01-01 15:01] VITALS: BP 142/89; PULSE 74; TEMP 97.7
--- NOTE | 2020-01-02 11:39 | MISC ---
MISCELLANOUS REPORT QUERY: Acute congestive heart failure diastolic, acute pulmonary edema secondary to acute diastolic heart failure. MMODL / IJN: [id number] /
--- NOTE | 2020-01-02 15:59 | PN ---
PROGRESS NOTE DATE OF SERVICE: 12/31/2019. CHIEF COMPLAINT: Flash pulmonary edema and hypertension. HISTORY OF PRESENT ILLNESS: This gentleman is doing well. He has had no chest pain, shortness of breath, cough, syncope, arrhythmias, etc. PHYSICAL EXAMINATION: Chest still demonstrates some residual rales and some wheezing throughout. Cardiac exam is normal. Blood pressure is now normal. Abdomen is soft and nontender. IMPRESSION: 1. Flash pulmonary edema due to hypertension. 2. Diabetes mellitus. PLAN: Continue diuresis and increase activity. He is being followed by Cardiology. This note was dictated late due to the fact that the computer and telephone were out in the office for 3 days. MMODL / IJN: [id number] /
--- NOTE | 2020-01-02 17:15 | DS ---
DISCHARGE SUMMARY CHIEF COMPLAINT: Hypertension and flash pulmonary edema. HISTORY OF PRESENT ILLNESS AND PHYSICAL EXAMINATION: Details of this man's history and physical can be found in the initial workup. LABORATORY STUDIES: While he was in a hospital he had laboratory studies, details of which can be found laboratory section of the chart. COURSE IN THE HOSPITAL: After admission placed at bedrest started intravenous fluids and diuresed. Blood pressures were brought down to normal. He was doing well and felt he could be discharged on the . He is cleared by Cardiology. He will go home with the addition of increased Lasix and Aldactone and be seen in the office in 1 day. FINAL DIAGNOSES: 1. Malignant hypertension. 2. Flash pulmonary edema. 3. Insulin-dependent diabetes mellitus. OPERATIONS: None. CONSULTATION: Cardiology. He is improved. MMODL / IJN: [id number] /
== END 2020-01-01 16:47 | disposition home or self-care (01) | DRG 291 ==
LOC: EC 04:42 → 3SCARD 07:45
PROVIDERS: ADMIT Family Medicine; ATTEND Family Medicine
PROC: 5A09457 Assistance with Respiratory Ventilation, 24-96 Consecutive Hours, Continuous Positive Airway Pressure (ICD-10-PCS; principal; 2019-12-30)
DX: I11.0 Hypertensive heart disease with heart failure (principal); I50.31 Acute diastolic (congestive) heart failure; J96.01 Acute respiratory failure with hypoxia; N17.9 Acute kidney failure, unspecified; J98.11 Atelectasis; I48.0 Paroxysmal atrial fibrillation; E78.5 Hyperlipidemia, unspecified; E11.9 Type 2 diabetes mellitus without complications; H91.90 Unspecified hearing loss, unspecified ear; I25.10 Atherosclerotic heart disease of native coronary artery without angina pectoris; J45.909 Unspecified asthma, uncomplicated; D72.829 Elevated white blood cell count, unspecified; Z79.01 Long term (current) use of anticoagulants; Z79.4 Long term (current) use of insulin; Z79.899 Other long term (current) drug therapy; Z82.49 Family history of ischemic heart disease and other diseases of the circulatory system; Z87.891 Personal history of nicotine dependence; Z88.5 Allergy status to narcotic agent; Z80.9 Family history of malignant neoplasm, unspecified; Z90.49 Acquired absence of other specified parts of digestive tract; Z98.890 Other specified postprocedural states
CPT/HCPCS: 36415; 71045; 71250; 80048; 80053; 83036; 83605; 83880; 84484; 85025; 85379; 85610; 85730; 93005; 93306; 94660; 96374; 96375; 99291

== ENCOUNTER 2022-10-22 12:25 | Emergency (ER) | payer MEDICARE, OTHER ==
[2022-10-22] MEDS ORDERED: SODIUM CHLORIDE 0.9% 1,000 ML IV STA (12:53)
--- NOTE | 2022-10-22 13:05 | ED ---
General Adult HPI - General Chief complaint: Fall Stated complaint: Fall,Blood Thinner Time Seen by Provider: 10/22/22 12:42 Source: patient, EMS, RN notes reviewed, old records reviewed Mode of arrival: EMS Limitations: physical limitation - History of Present Illness Initial comments: Patient is a 72-year-old male who presents emergency department for fall. Presents from his nursing facility. Fall last night as he missed a chair and slumped onto side but was unable to get up from the ground. States that this happened previously. Is on several toe. Does not believe he has had. Spent the night on the floor. Denies any acute weakness. Patient is a diabetic. Denies any chest pain, shortness of breath, abdominal pain, nausea, vomiting. Denies any obvious injuries. Currently is at his baseline mental status and is in agreement with being evaluated. Has no other acute complaints at this time. Presents for further evaluation at this time. Is on blood thinner. - Related Data Home Medications Medication Instructions Recorded Confirmed Ferrous Sulfate [Iron] 325 mg PO DAILY 08/30/17 12/30/19 Insuln Asp Prt/Insulin Aspart 6 unit SQ W/SUPPER 08/30/17 12/30/19 [NovoLOG MIX 70-30 VIAL] Insuln Asp Prt/Insulin Aspart 12 unit SQ QAM 08/30/17 12/30/19 [NovoLOG MIX 70-30 VIAL] Pravastatin Sodium 80 mg PO HS 08/30/17 12/30/19 Rivaroxaban [Xarelto] 20 mg PO DAILY 08/30/17 12/30/19 hydrALAZINE HCL [Apresoline] 100 mg PO TID 08/30/17 12/30/19 Losartan Potassium 50 mg PO DAILY 12/30/19 12/30/19 Metoprolol Succinate [Toprol XL] 100 mg PO DAILY 12/30/19 01/01/20 Omeprazole 40 mg PO DAILY 12/30/19 12/30/19 metFORMIN HCL 500 mg PO BID 12/30/19 12/30/19 Previous Rx's Medication Instructions Recorded Furosemide [Lasix] 40 mg PO BID #0 tablet 01/01/20 Spironolactone [Aldactone] 25 mg PO DAILY #0 tablet 01/01/20 Allergies Allergy/AdvReac Type Severity Reaction Status Date / Time codeine AdvReac Severe Verified 08/14/23 12:40 insomnia Review of Systems ROS Statement: Those systems with pertinent positive or pertinent negative responses have been documented in the HPI. Review of Systems: CONST: Denies fever EYES: Denies blurry vision ENT: Denies nasal congestion C/V: Denies Chest pain RESP: Denies shortness of breath GI: Denies abdominal pain : Denies dysuria SKIN: Denies rash. MSK: Denies joint pain. NEURO: Denies headache ROS Other: All systems not noted in ROS Statement are negative. Past Medical History Past Medical History: Unable to Obtain Additional Past Medical History / Comment(s): Afib with RVR/ablation, IDDM type II, pt denies hx of CHRISSIE/CKD as documented in past medical record and does not know why he takes iron, [place] bilaterally-wears aide in R ear History of Any Multi-Drug Resistant Organisms: Unobtainable Past Surgical History: Unable to Obtain Additional Past Surgical History / Comment(s): 2011 cardiac cath, R eye surgery/lens implant-pt believes d/t infection, colonoscopy. Past Anesthesia/Blood Transfusion Reactions: No Reported Reaction Past Psychological History: Unable to Obtain Smoking Status: Unknown if ever smoked Past Alcohol Use History: Unable to Obtain Past Drug Use History: Unable to Obtain - Past Family History Father Family Medical History: Myocardial Infarction (UT) Additional Family Medical History / Comment(s): Father of a UT but pt cannot recall at what age. Mother Family Medical History: Cancer Additional Family Medical History / Comment(s): Pt cannot recall type of cancer. General Exam - General Exam Comments Initial Comments: General: Appears in no acute distress. HEAD: Normal with no signs of head trauma. Negative Maldonado sign. Negative raccoon eyes. EYES: PERRLA, EOMI, conjunctiva normal, no discharge. Pupils are 3 mm and equal bilaterally. ENT: Hearing grossly intact, normal oropharynx. RESPIRATORY: Clear breath sounds bilaterally. No wheezes, rales, or rhonchi. C/V: Regular rate and rhythm. S1 and S2 auscultated, no edema, peripheral pulses 2+ and intact throughout ABD: Abd is soft, nontender, nondistended EXT: Normal range of motion, no obvious deformity. Pelvis is stable. No midline cervical, thoracic, lumbar spine tenderness to palpation. SKIN: No rashes or lesions observed on exposed skin. NEURO: Alert and oriented x 4. Cranial nerves II-XII intact. No focal sensory or strength deficits. GCS of 15. NIH is 0. Limitations: physical limitation Course Vital Signs 10/22/22 10/22/22 10/22/22 12:35 13:30 14:00 Temperature 97.8 F Pulse Rate 91 90 88 Respiratory 18 18 20 Rate Blood Pressure 145/112 172/155 173/118 O2 Sat by Pulse 98 97 96 Oximetry 10/22/22 10/22/22 10/22/22 15:52 16:30 17:30 Temperature Pulse Rate 100 106 H 96 Respiratory 20 20 18 Rate Blood Pressure 163/119 176/77 129/88 O2 Sat by Pulse 98 96 98 Oximetry 10/22/22 18:43 Temperature 97.9 F Pulse Rate 70 Respiratory 18 Rate Blood Pressure 138/100 O2 Sat by Pulse 96 Oximetry Medical Decision Making - Medical Decision Making Was pt. sent in by a medical professional or institution (, PA, SECURITY ROVER, urgent care, hospital, or fdc...) When possible be specific @ -Sent from his nursing facility. Did you speak to anyone other than the patient for history (EMS, parent, family, police, friend...)? What history was obtained from this source @ -No Did you review nursing and triage notes (agree or disagree)? Why? @ -I reviewed and agree with nursing and triage notes Were old charts reviewed (outside hosp., previous admission, EMS record, old EKG, old radiological studies, urgent care reports/EKG's, fdc records)? Report findings @ -Old charts reviewed from December 2019 Differential Diagnosis (chest pain, altered mental status, abdominal pain women, abdominal pain men, vaginal bleeding, weakness, fever, dyspnea, syncope, headache, dizziness, GI bleed, back pain, seizure, CVA, palpatations, mental health, musculoskeletal)? @ -Differential Weakness: Hypoglycemia, shock, sepsis, hyponatremia, anemia, infection, [place], ETOH, adverse medicine reaction, overdose, stroke, this is not meant to be an all-inclusive list. EKG interpreted by me (3pts min.). @ -As above X-rays interpreted by me (1pt min.). @ -Patient's x-rays revealed no evidence of acute traumatic injury or process. CT interpreted by me (1pt min.). @ -Patient's CT brain shows no evidence of acute intracranial injury or process. U/S interpreted by me (1pt. min.). @ -None done What testing was considered but not performed or refused? (CT, X-rays, U/S, labs)? Why? @ -None What meds were considered but not given or refused? Why? @ -I offered analgesic medications which were declined. Did you discuss the management of the patient with other professionals (professionals i.e. , PA, SECURITY ROVER, lab, RT, psych nurse, social service worker, wildfire prevention specialist, teacher, biosecurity officer, bottle caser)? Give summary @ -No Was smoking cessation discussed for >3mins.? @ -No Was critical care preformed (if so, how long)? @ -No Were there social determinants of health that impacted care today? How? (Homelessness, low income, unemployed, alcoholism, drug addiction, transportation, low edu. Level, literacy, decrease access to med. care, long-term, rehab)? @ -No Was there de-escalation of care discussed even if they declined (Discuss DNR or withdrawal of care, Hospice)? DNR status @ -No What co-morbidities impacted this encounter? (DM, HTN, Smoking, COPD, CAD, C ancer, CVA, ARF, Chemo, Hep., AIDS, mental health diagnosis, sleep apnea, morbid obesity)? @ -None Was patient admitted / discharged? Hospital course, mention meds given and route, prescriptions, significant lab abnormalities, going to OR and other pertinent info. @ -Based on the patient's presentation and physical exam, he presents for a f all. He fell last night. Is on blood thinners. Does not believe she lost consciousness but cannot recall. Unable to get back up and was found on the ground this morning. Presents with his nursing facility. We'll obtain generalized labs, as well as infectious labs for his weakness. We will obtain a CT brain due to the uncertainty rate guarding loss of consciousness. Patient was a fall from standing therefore is not a trauma activation. Normal mental status. Declines analgesic medications. Vital signs within acceptable limits. EKG showed no signs of ischemia.Patient's imaging is within normal limits. Patient's laboratory studies showed leukocytosis of 16 which is likely reactive but I would like to obtain a urinalysis which is still pending. Pending kinase within normal limits. Elevated BUN and creatinine which is chronic. And appears at baseline. Viral swabs negative. I discussed results with the patient. Due to his mild leukocytosis I did recommend we obtain his urine studies which is still pending. He was in agreement this plan. Otherwise he would like to be discharged home which I believe is reasonable. There is a long delay in obtaining the urinalysis as he did not want to be straight cath, atypical long time to obtain a sample. Urine is unremarkable and shows no evidence of UTI at this time. I updated the patient. He'll be discharged home. He was in agreement this plan. Strict return precautions discussed. I instructed the patient to follow up with their PCP in the next 1-3 days. I explained that the patient should return to the emergency department if they experience any worsening symptoms. Strict return precautions were discussed with the patient. The patient expressed understanding of these instructions. I ans wered all questions that the patient had. The patient was discharged home in good condition with their prescriptions and follow up information. Undiagnosed new problem with uncertain prognosis? @ -No Drug Therapy requiring intensive monitoring for toxicity (Heparin, Nitro, Insulin, Cardizem)? @ -No Were any procedures done? @ -No Diagnosis/symptom? @ -Fall, dehydration Acute, or Chronic, or Acute on Chronic? @ -Acute Uncomplicated (without systemic symptoms) or Complicated (systemic symptoms)? @ -Uncomplicated Side effects of treatment? @ -none Exacerbation, Progression, or Severe Exacerbation] @ -no Poses a threat to life or bodily function? @ -no - Lab Data Result diagrams: 10/22/22 12:56 10/22/22 12:56 Lab Results 10/22/22 10/22/22 10/22/22 Range/Units 12:56 12:56 12:56 WBC 16.3 H (3.8-10.6) k/uL RBC 5.11 (4.30-5.90) m/uL Hgb 16.5 (13.0-17.5) gm/dL Hct 48.9 (39.0-53.0) % MCV 95.6 (80.0-100.0) fL MCH 32.3 (25.0-35.0) pg MCHC 33.8 (31.0-37.0) g/dL RDW 13.2 (11.5-15.5) % Plt Count 206 (150-450) k/uL MPV 8.9 Neutrophils % 85 % Lymphocytes % 8 % Monocytes % 5 % Eosinophils % 1 % Basophils % 1 % Neutrophils # 13.8 H (1.3-7.7) k/uL Lymphocytes # 1.3 (1.0-4.8) k/uL Monocytes # 0.8 (0-1.0) k/uL Eosinophils # 0.1 (0-0.7) k/uL Basophils # 0.1 (0-0.2) k/uL PT 10.3 (9.0-12.0) sec INR 1.0 (<1.2) APTT 25.8 (22.0-30.0) sec Sodium (137-145) mmol/L Potassium (3.5-5.1) mmol/L Chloride (98-107) mmol/L Carbon Dioxide (22-30) mmol/L Anion Gap mmol/L BUN (9-20) mg/dL Creatinine (0.66-1.25) mg/dL Est GFR (CKD-EPI)AfAm (>60 ml/min/1.73 sqM) Est GFR (CKD-EPI)NonAf (>60 ml/min/1.73 sqM) Glucose (74-99) mg/dL Plasma Lactic Acid Russell (0.7-2.0) mmol/L Calcium (8.4-10.2) mg/dL Magnesium (1.6-2.3) mg/dL Total Bilirubin (0.2-1.3) mg/dL AST (17-59) U/L ALT (4-49) U/L Alkaline Phosphatase (38-126) U/L Creatine Kinase (55-170) U/L Total Protein (6.3-8.2) g/dL Albumin (3.5-5.0) g/dL Urine Color Light Yellow Urine Appearance Clear (Clear) Urine pH 6.5 (5.0-8.0) Ur Specific [place] 1.021 (1.001-1.035) Urine Protein 3+ H (Negative) Urine Glucose (UA) 4+ H (Negative) Urine Ketones Trace H (Negative) Urine Blood Small H (Negative) Urine Nitrite Negative (Negative) Urine Bilirubin Negative (Negative) Urine Urobilinogen <2.0 (<2.0) mg/dL Ur Leukocyte Esterase Negative (Negative) Urine RBC 3 (0-5) /hpf Urine WBC 6 H (0-5) /hpf Hyaline Casts 10 H (0-2) /lpf Urine Mucus Rare H (None) /hpf Influenza Type A (PCR) (Not Detectd) Influenza Type B (PCR) (Not Detectd) RSV (PCR) (Not Detectd) SARS-CoV-2 (PCR) (Not Detectd) 10/22/22 10/22/22 10/22/22 Range/Units 12:56 12:56 12:56 WBC (3.8-10.6) k/uL RBC (4.30-5.90) m/uL Hgb (13.0-17.5) gm/dL Hct (39.0-53.0) % MCV (80.0-100.0) fL MCH (25.0-35.0) pg MCHC (31.0-37.0) g/dL RDW (11.5-15.5) % Plt Count (150-450) k/uL MPV Neutrophils % % Lymphocytes % % Monocytes % % Eosinophils % % Basophils % % Neutrophils # (1.3-7.7) k/uL Lymphocytes # (1.0-4.8) k/uL Monocytes # (0-1.0) k/uL Eosinophils # (0-0.7) k/uL Basophils # (0-0.2) k/uL PT (9.0-12.0) sec INR (<1.2) APTT (22.0-30.0) sec Sodium 137 (137-145) mmol/L Potassium 4.8 (3.5-5.1) mmol/L Chloride 104 (98-107) mmol/L Carbon Dioxide 24 (22-30) mmol/L Anion Gap 9 mmol/L BUN 35 H (9-20) mg/dL Creatinine 1.59 H (0.66-1.25) mg/dL Est GFR (CKD-EPI)AfAm 49 (>60 ml/min/1.73 sqM) Est GFR (CKD-EPI)NonAf 43 (>60 ml/min/1.73 sqM) Glucose 375 H (74-99) mg/dL Plasma Lactic Acid Russell 1.7 (0.7-2.0) mmol/L Calcium 8.8 (8.4-10.2) mg/dL Magnesium 1.6 (1.6-2.3) mg/dL Total Bilirubin 0.8 (0.2-1.3) mg/dL AST 24 (17-59) U/L ALT 22 (4-49) U/L Alkaline Phosphatase 170 H (38-126) U/L Creatine Kinase 89 (55-170) U/L Total Protein 7.1 (6.3-8.2) g/dL Albumin 3.6 (3.5-5.0) g/dL Urine Color Urine Appearance (Clear) Urine pH (5.0-8.0) Ur Specific [place] (1.001-1.035) Urine Protein (Negative) Urine Glucose (UA) (Negative) Urine Ketones (Negative) Urine Blood (Negative) Urine Nitrite (Negative) Urine Bilirubin (Negative) Urine Urobilinogen (<2.0) mg/dL Ur Leukocyte Esterase (Negative) Urine RBC (0-5) /hpf Urine WBC (0-5) /hpf Hyaline Casts (0-2) /lpf Urine Mucus (None) /hpf Influenza Type A (PCR) Not Detected (Not Detectd) Influenza Type B (PCR) Not Detected (Not Detectd) RSV (PCR) Not Detected (Not Detectd) SARS-CoV-2 (PCR) Not Detected (Not Detectd) - EKG Data -: EKG Interpreted by Me EKG Comments: 12-lead Electrocardiogram Interpretation Note EKG was reviewed and interpreted by myself. 12-lead ECG performed at 89 is interpreted by me as revealing atrial fibrillation at a rate of 89 beats per minute. Left axis deviation. QRS duration is 104 ms, QTc is 420 ms.. There were no ST or T wave abnormalities to suggest myocardial ischemia or injury. R wave progression across the precordium was satisfactory. By my interpretation this EKG is non-diagnostic for acute ischemia. Disposition Clinical Impression: Fall, Dehydration Disposition: HOME SELF-CARE Condition: Good Instructions (If sedation given, give patient instructions): Fall Prevention for Older Adults (ED) Is patient prescribed a controlled substance at d/c from ED?: No Referrals: Balaji Fountain MD [Primary Care Provider] - 1-2 days Time of Disposition: 18:25
[2022-10-22 13:20] LABS: Basophils # (A) 0.1 k/uL (0-0.2); Basophils % (A) 1 %; Eosinophils # (A) 0.1 k/uL (0-0.7); Eosinophils % (A) 1 %; HCT 48.9 % (39.0-53.0); HGB 16.5 gm/dL (13.0-17.5); Lymphocytes # (A) 1.3 k/uL (1.0-4.8); Lymphocytes % (A) 8 %; MCH 32.3 pg (25.0-35.0); MCHC 33.8 g/dL (31.0-37.0); MCV 95.6 fL (80.0-100.0); Mean Platelet Volume 8.9; Monocytes # (A) 0.8 k/uL (0-1.0); Monocytes % (A) 5 %; Neutrophils # (A) 13.8 k/uL (1.3-7.7); Neutrophils % (A) 85 %; Platelet Count 206 k/uL (150-450); RBC 5.11 m/uL (4.30-5.90); RDW 13.2 % (11.5-15.5); WBC 16.3 k/uL (3.8-10.6)
[2022-10-22 13:33] LABS: Partial Thromboplastin Time 25.8 sec (22.0-30.0); Prothrombin Time 10.3 sec (9.0-12.0)
[2022-10-22 13:39] LABS: ALT 22 U/L (4-49); AST 24 U/L (17-59); African American GFR (CKD) 49 (>60 ml/min/1.73 sqM); Albumin 3.6 g/dL (3.5-5.0); Alkaline Phosphatase 170 U/L (38-126); Anion Gap 9 mmol/L; Blood Urea Nitrogen 35 mg/dL (9-20); Calcium 8.8 mg/dL (8.4-10.2); Carbon Dioxide 24 mmol/L (22-30); Chloride 104 mmol/L (98-107); Creatine Kinase 89 U/L (55-170); Glucose 375 mg/dL (74-99); Magnesium 1.6 mg/dL (1.6-2.3); Non-African American GFR(CKD) 43 (>60 ml/min/1.73 sqM); Potassium 4.8 mmol/L (3.5-5.1); Sodium 137 mmol/L (137-145); Total Bilirubin 0.8 mg/dL (0.2-1.3); Total Protein 7.1 g/dL (6.3-8.2)
--- NOTE | 2022-10-22 14:07 | XR ---
EXAMINATION TYPE: XR chest 2V DATE OF EXAM: 10/22/2022 2:00 PM COMPARISON: Chest radiographs from 12/30/2019 TECHNIQUE: XR chest 2V Frontal and lateral views of the chest. CLINICAL INDICATION:Male, 72 years old with history of Weakness; FINDINGS: Lungs/Pleura: There is no evidence of pleural effusion, focal consolidation, or pneumothorax. Hyperi nflation. Chronic senescent parenchyma changes. Pulmonary vascularity: Mild pulmonary vascular congestion. Heart/mediastinum: Cardiomediastinal silhouette is enlarged and stable. Two lead cardiac conduction d evice overlying the left hemithorax with lead tips projecting over the right ventricle and right atri um. Musculoskeletal: Multiple level degenerative disc disease changes seen throughout the spine. IMPRESSION: Chronic changes without evidence for acute process.
--- NOTE | 2022-10-22 14:09 | XR ---
EXAMINATION TYPE: XR pelvis AP view DATE OF EXAM: 10/22/2022 2:00 PM INDICATION: Patient age:Male; 72 years old; Reason for study: fall; PHH. COMPARISON: None TECHNIQUE: The pelvis was examined in a single projection. FINDINGS: Post fixation changes of the right proximal femur fracture with intramedullary jessica and scre w. Hardware appears intact. There is no evidence of acute fracture or dislocation. There is no soft t issue abnormality. Metallic clip within the pelvis. Multilevel degenerative changes of the lower spin e. IMPRESSION: 1. No acute osseous pathology. 2. Post fixation changes of the right proximal femur. Hardware appears intact.
--- NOTE | 2022-10-22 14:11 | XR ---
EXAMINATION TYPE: XR shoulder complete RT DATE OF EXAM: 10/22/2022 2:00 PM INDICATION: Patient age:Male; 72 years old; Reason for study: fall, pain; COMPARISON: None TECHNIQUE: The right shoulder was examined in AP, internally rotated and scapular Y projections. . FINDINGS: No evidence of acute osseous pathology, joint dislocation, or soft tissue swelling. The remaining por tions of the visualized chest are unremarkable. IMPRESSION: No acute osseous pathology.
--- NOTE | 2022-10-22 14:13 | CT ---
EXAMINATION TYPE: CT brain wo con DATE OF EXAM: 10/22/2022 COMPARISON: None available. HISTORY: Weakness CT DLP: 1116 mGycm Automated exposure control for dose reduction was used. FINDINGS: Please note that the evaluation is moderately limited secondary to streak artifact from motion. There is no acute intracranial hemorrhage, mass, mass effect, midline shift, extra-axial fluid collec tion or hydrocephalus. There is mild hypoattenuation seen within the paraventricular, subcortical and deep white matter which is compatible with chronic ischemic small vessel change. No acute major vess el infarct is seen on the scope of this examination. An area of encephalomalacia in the occipital reg ion on the left is likely related to prior infarct. Mild diffuse cerebral atrophy and cerebellar atro phy is also noted. The visualized paranasal sinuses and mastoid air cells are clear. IMPRESSION: CHRONIC CHANGES ABOVE WITH NO ACUTE INTRACRANIAL PROCESS.
[2022-10-22 18:16] LABS: Appearance,Urine Clear (Clear); Bilirubin,Urine Negative (Negative); Blood,Urine Small (Negative); Color,Urine Light Yellow; Glucose,Urine (UA) 4+ (Negative); Hyaline Casts,Urine 10 /lpf (0-2); Ketones,Urine Trace (Negative); Leukocyte Esterase,Urine Negative (Negative); Mucus,Urine Rare /hpf; Nitrite,Urine Negative (Negative); PH, Urine 6.5 (5.0-8.0); Protein,Urine 3+ (Negative); RBC,Urine 3 /hpf (0-5); Specific Gravity,Urine 1.021 (1.001-1.035); Urobilinogen,Urine <2.0 mg/dL (<2.0); WBC,Urine 6 /hpf (0-5)
[2022-10-22 18:44] VITALS: RESP 18
[2022-10-22 18:50] VITALS: BP 138/100; PULSE 70; TEMP 97.9
== END 2022-10-22 19:05 | disposition home or self-care (01) ==
LOC: EC 12:25
DX: E86.0 Dehydration (principal); E11.9 Type 2 diabetes mellitus without complications; I48.91 Unspecified atrial fibrillation; Z88.5 Allergy status to narcotic agent; Z79.01 Long term (current) use of anticoagulants; Z79.4 Long term (current) use of insulin; Z79.84 Long term (current) use of oral hypoglycemic drugs; Z79.899 Other long term (current) drug therapy; Z20.822 Contact with and (suspected) exposure to COVID-19; W18.30XA Fall on same level, unspecified, initial encounter
CPT/HCPCS: 36415; 70450; 71046; 72170; 80053; 81001; 82550; 83605; 83735; 85025; 85610; 85730; 87636; 93005; 96360; 99285

== ENCOUNTER 2022-12-28 19:25 | Emergency (ER) | payer MEDICARE, OTHER ==
[2022-12-28 19:30] LABS: Glucose,Whole Blood 118 mg/dL (70-110)
[2022-12-28 19:32] VITALS: RESP 18; TEMP 98.2
[2022-12-28 20:19] LABS: Basophils % (A) 0 %; Eosinophils # (A) 0.4 k/uL (0-0.7); Eosinophils % (A) 5 %; HCT 38.8 % (39.0-53.0); HGB 12.8 gm/dL (13.0-17.5); Lymphocytes # (A) 1.9 k/uL (1.0-4.8); Lymphocytes % (A) 23 %; MCH 31.3 pg (25.0-35.0); MCHC 32.9 g/dL (31.0-37.0); MCV 95.1 fL (80.0-100.0); Mean Platelet Volume 8.5; Monocytes # (A) 0.6 k/uL (0-1.0); Monocytes % (A) 7 %; Neutrophils # (A) 5.2 k/uL (1.3-7.7); Neutrophils % (A) 64 %; Platelet Count 207 k/uL (150-450); RBC 4.08 m/uL (4.30-5.90); RDW 12.7 % (11.5-15.5); WBC 8.2 k/uL (3.8-10.6)
[2022-12-28 20:28] LABS: ALT 16 U/L (4-49); AST 21 U/L (17-59); African American GFR (CKD) 46 (>60 ml/min/1.73 sqM); Albumin 3.2 g/dL (3.5-5.0); Alkaline Phosphatase 128 U/L (38-126); Anion Gap 12 mmol/L; Blood Urea Nitrogen 41 mg/dL (9-20); Calcium 8.1 mg/dL (8.4-10.2); Carbon Dioxide 17 mmol/L (22-30); Chloride 111 mmol/L (98-107); Glucose 123 mg/dL (74-99); Magnesium 1.4 mg/dL (1.6-2.3); Non-African American GFR(CKD) 40 (>60 ml/min/1.73 sqM); Potassium 4.5 mmol/L (3.5-5.1); Sodium 140 mmol/L (137-145); Total Bilirubin 0.3 mg/dL (0.2-1.3); Total Protein 6.2 g/dL (6.3-8.2)
[2022-12-28] MEDS ORDERED: MAGNESIUM OXIDE 400 MG TAB PO STA (20:34)
--- NOTE | 2022-12-28 20:35 | ED ---
General Adult HPI - General Chief complaint: Recheck/Abnormal Lab/Rx Stated complaint: huigh blood sugar Time Seen by Provider: 12/28/22 19:29 Source: patient, EMS, RN notes reviewed, old records reviewed Mode of arrival: EMS - History of Present Illness Initial comments: Patient is a 72-year-old male presents with the department over concern for a blood sugar. Did not check it at home, however states he knows when his blood sugar is high. Has a history of insulin dependent diabetes. His no other symptoms at this time. Is unable to tell me how he notes his blood sugars high. EMS checked and was in the 200s. In triage it was 118. His no other acute complaints at this time. Denies any fevers, chills, cough, nausea, vomiting, diarrhea, chest pain, shortness breath, abdominal pain. - Related Data Home Medications Medication Instructions Recorded Confirmed Ferrous Sulfate [Iron] 325 mg PO DAILY 08/30/17 12/30/19 Insuln Asp Prt/Insulin Aspart 6 unit SQ W/SUPPER 08/30/17 12/30/19 [NovoLOG MIX 70-30 VIAL] Insuln Asp Prt/Insulin Aspart 12 unit SQ QAM 08/30/17 12/30/19 [NovoLOG MIX 70-30 VIAL] Pravastatin Sodium 80 mg PO HS 08/30/17 12/30/19 Rivaroxaban [Xarelto] 20 mg PO DAILY 08/30/17 12/30/19 hydrALAZINE HCL [Apresoline] 100 mg PO TID 08/30/17 12/30/19 Losartan Potassium 50 mg PO DAILY 12/30/19 12/30/19 Metoprolol Succinate [Toprol XL] 100 mg PO DAILY 12/30/19 01/01/20 Omeprazole 40 mg PO DAILY 12/30/19 12/30/19 metFORMIN HCL 500 mg PO BID 12/30/19 12/30/19 Previous Rx's Medication Instructions Recorded Furosemide [Lasix] 40 mg PO BID #0 tablet 01/01/20 Spironolactone [Aldactone] 25 mg PO DAILY #0 tablet 01/01/20 Allergies Allergy/AdvReac Type Severity Reaction Status Date / Time codeine AdvReac Severe Verified 12/28/22 19:32 insomnia Review of Systems ROS Statement: Those systems with pertinent positive or pertinent negative responses have been documented in the HPI. Review of Systems: CONST: Denies fever EYES: Denies blurry vision ENT: Denies nasal congestion C/V: Denies Chest pain RESP: Denies shortness of breath GI: Denies abdominal pain : Denies dysuria SKIN: Denies rash. MSK: Denies joint pain. NEURO: Denies headache ROS Other: All systems not noted in ROS Statement are negative. Past Medical History Past Medical History: Unable to Obtain Additional Past Medical History / Comment(s): Afib with RVR/ablation, IDDM type II, pt denies hx of CHRISSIE/CKD as documented in past medical record and does not know why he takes iron, [place] bilaterally-wears aide in R ear History of Any Multi-Drug Resistant Organisms: Unobtainable Past Surgical History: Unable to Obtain Additional Past Surgical History / Comment(s): 2011 cardiac cath, R eye surgery/lens implant-pt believes d/t infection, colonoscopy. Past Anesthesia/Blood Transfusion Reactions: No Reported Reaction Past Psychological History: Unable to Obtain Smoking Status: Unknown if ever smoked Past Alcohol Use History: Unable to Obtain Past Drug Use History: Unable to Obtain - Past Family History Father Family Medical History: Myocardial Infarction ([place]) Additional Family Medical History / Comment(s): Father of a [place] but pt cannot recall at what age. Mother Family Medical History: Cancer Additional Family Medical History / Comment(s): Pt cannot recall type of cancer. General Exam - General Exam Comments Initial Comments: General: Appears in no acute distress. HEAD: Normal with no signs of head trauma. EYES: PERRLA, EOMI, conjunctiva normal, no discharge. ENT: Hearing grossly intact, normal oropharynx. RESPIRATORY: Clear breath sounds bilaterally. No wheezes, rales, or rhonchi. C/V: Regular rate and rhythm. S1 and S2 auscultated, no edema, peripheral pulses 2+ and intact throughout ABD: Abd is soft, nontender, nondistended EXT: Normal range of motion, no obvious deformity SKIN: No rashes or lesions observed on exposed skin. NEURO: Alert and oriented 4. Course Vital Signs 12/28/22 12/28/22 19:28 20:43 Temperature 98.2 F Pulse Rate 96 80 Respiratory 18 18 Rate Blood Pressure 144/92 154/80 O2 Sat by Pulse 100 98 Oximetry Medical Decision Making - Medical Decision Making Was pt. sent in by a medical professional or institution (MARIA ISABEL Prabhakar, METAL BENDING MACHINE OPERATOR, urgent care, hospital, or group home...) When possible be specific @ -No Did you speak to anyone other than the patient for history (EMS, parent, family, police, friend...)? What history was obtained from this source @ -No Did you review nursing and triage notes (agree or disagree)? Why? @ -I reviewed and agree with nursing and triage notes Were old charts reviewed (outside hosp., previous admission, EMS record, old EKG, old radiological studies, urgent care reports/EKG's, group home records)? Report findings @ -Old charts reviewed. Differential Diagnosis (chest pain, altered mental status, abdominal pain women, abdominal pain men, vaginal bleeding, weakness, fever, dyspnea, syncope, headache, dizziness, GI bleed, back pain, seizure, CVA, palpatations, mental health, musculoskeletal)? @ -DKA, hyperglycemia, dehydration, electrolyte abnormality. This is is not all inclusive. EKG interpreted by me (3pts min.). @ -As above X-rays interpreted by me (1pt min.). @ -None done CT interpreted by me (1pt min.). @ -None done U/S interpreted by me (1pt. min.). @ -None done What testing was considered but not performed or refused? (CT, X-rays, U/S, labs)? Why? @ -None What meds were considered but not given or refused? Why? @ -None Did you discuss the management of the patient with other professionals (prof sarina i.e. MARIA ISABEL Prabhakar, METAL BENDING MACHINE OPERATOR, lab, RT, psych nurse, social media director, carbon sequestration plant operator, teacher, electronic warfare officer, casework specialist)? Give summary @ -No Was smoking cessation discussed for >3mins.? @ -No Was critical care preformed (if so, how long)? @ -No Were there social determinants of health that impacted care today? How? (Homelessness, low income, unemployed, alcoholism, drug addiction, transportat ion, low edu. Level, literacy, decrease access to med. care, retirement, rehab)? @ -No Was there de-escalation of care discussed even if they declined (Discuss DNR or withdrawal of care, Hospice)? DNR status @ -No What co-morbidities impacted this encounter? (DM, HTN, Smoking, COPD, CAD, Cancer, CVA, ARF, Chemo, Hep., AIDS, mental health diagnosis, sleep apnea, morbid obesity)? @ -None Was patient admitted / discharged? Hospital course, mention meds given and route, prescriptions, significant lab abnormalities, going to OR and other pertinent info. @ -Based on patient's presentation and physical exam, I'm concerned for asymptomatic hyperglycemia. Vital signs within except for limits. We will obtain basic labs. We will obtain EKG. Patient was in agreement with this plan. I blood sugar within acceptable limits. EKG shows no signs of acute ischemia. Patient's labs are all within acceptable limits and within baseline for the patient otherwise mild hypomagnesemia which will be replenished. No evidence of DKA. I discussed results of the patient. He remains asymptomatic. He will be discharged home at this time. I instructed the patient to follow up with their PCP in the next 1-3 days. I explained that the patient should return to the emergency department if they experience any worsening symptoms. Strict return precautions were discussed with the patient. The patient expressed understanding of these instructions. I answered all questions that the patient had. The patient was discharged home in good condition with their prescriptions and follow up information. Undiagnosed new problem with uncertain prognosis? @ -No Drug Therapy requiring intensive monitoring for toxicity (Heparin, Nitro, Insulin, Cardizem)? @ -No Were any procedures done? @ -No Diagnosis/symptom? @ -Hyperglycemia, hypomagnesemia Acute, or Chronic, or Acute on Chronic? @ -Acute Uncomplicated (without systemic symptoms) or Complicated (systemic symptoms)? @ -Uncomplicated Side effects of treatment? @ -No Exacerbation, Progression, or Severe Exacerbation? @ -No Poses a threat to life or bodily function? How? (Chest pain, [place], [place], pneumonia, PE, COPD, DKA, ARF, appy, cholecystitis, CVA, Diverticulitis, Homicidal, Suicidal, threat to staff... and all critical care pts) @ -No - Lab Data Result diagrams: 12/28/22 20:07 12/28/22 20:07 Lab Results 12/28/22 12/28/22 12/28/22 Range/Units 19:28 20:07 20:07 WBC 8.2 (3.8-10.6) k/uL RBC 4.08 L (4.30-5.90) m/uL Hgb 12.8 L (13.0-17.5) gm/dL Hct 38.8 L (39.0-53.0) % MCV 95.1 (80.0-100.0) fL MCH 31.3 (25.0-35.0) pg MCHC 32.9 (31.0-37.0) g/dL RDW 12.7 (11.5-15.5) % Plt Count 207 (150-450) k/uL MPV 8.5 Neutrophils % 64 % Lymphocytes % 23 % Monocytes % 7 % Eosinophils % 5 % Basophils % 0 % Neutrophils # 5.2 (1.3-7.7) k/uL Lymphocytes # 1.9 (1.0-4.8) k/uL Monocytes # 0.6 (0-1.0) k/uL Eosinophils # 0.4 (0-0.7) k/uL Basophils # 0.0 (0-0.2) k/uL Sodium 140 (137-145) mmol/L Potassium 4.5 (3.5-5.1) mmol/L Chloride 111 H (98-107) mmol/L Carbon Dioxide 17 L (22-30) mmol/L Anion Gap 12 mmol/L BUN 41 H (9-20) mg/dL Creatinine 1.68 H (0.66-1.25) mg/dL Est GFR (CKD-EPI)AfAm 46 (>60 ml/min/1.73 sqM) Est GFR (CKD-EPI)NonAf 40 (>60 ml/min/1.73 sqM) Glucose 123 H (74-99) mg/dL POC Glucose (mg/dL) 118 H (70-110) mg/dL POC Glu Equine Science Instructor ID Culp, Дмитрий Calcium 8.1 L (8.4-10.2) mg/dL Magnesium 1.4 L (1.6-2.3) mg/dL Total Bilirubin 0.3 (0.2-1.3) mg/dL AST 21 (17-59) U/L ALT 16 (4-49) U/L Alkaline Phosphatase 128 H (38-126) U/L Total Protein 6.2 L (6.3-8.2) g/dL Albumin 3.2 L (3.5-5.0) g/dL - EKG Data -: EKG Interpreted by Me EKG Comments: 12-lead Electrocardiogram Interpretation Note EKG was reviewed and interpreted by myself. 12-lead ECG performed at 21 1 is interpreted by me as revealing atrial fibrillation at a rate of 81 beats per minute. [place] is normal. Respirations 102 ms, QTc is 445 ms.. There were no ST or T wave abnormalities to suggest myocardial ischemia or injury. R wave progression across the precordium was satisfactory. By my interpretation this EKG is non-diagnostic for acute ischemia. Disposition Clinical Impression: Hyperglycemia, Hypomagnesemia Disposition: HOME SELF-CARE Condition: Good Instructions (If sedation given, give patient instructions): Diabetes and Nutrition (ED) Is patient prescribed a controlled substance at d/c from ED?: No Referrals: Balaji Fountain MD [Primary Care Provider] - 1-2 days Time of Disposition: 20:35
[2022-12-28 20:52] VITALS: BP 154/80; PULSE 80
== END 2022-12-28 20:47 | disposition home or self-care (01) ==
LOC: EC 19:25
DX: E11.65 Type 2 diabetes mellitus with hyperglycemia (principal); E83.42 Hypomagnesemia; I48.91 Unspecified atrial fibrillation; Z79.4 Long term (current) use of insulin; Z79.84 Long term (current) use of oral hypoglycemic drugs; Z79.01 Long term (current) use of anticoagulants; Z79.899 Other long term (current) drug therapy; Z88.5 Allergy status to narcotic agent
CPT/HCPCS: 36415; 80053; 83735; 85025; 93005; 99284

== ENCOUNTER 2023-01-10 23:50 | Observation (INO) | payer MEDICARE, OTHER ==
[2023-01-11 00:01] LABS: Glucose,Whole Blood 72 mg/dL (70-110)
[2023-01-11 00:19] LABS: Basophils % (A) 0 %; Eosinophils # (A) 0.1 k/uL (0-0.7); Eosinophils % (A) 1 %; HCT 41.5 % (39.0-53.0); HGB 14.1 gm/dL (13.0-17.5); Lymphocytes # (A) 0.9 k/uL (1.0-4.8); Lymphocytes % (A) 8 %; MCH 32.2 pg (25.0-35.0); MCHC 33.9 g/dL (31.0-37.0); MCV 94.8 fL (80.0-100.0); Mean Platelet Volume 7.9; Monocytes # (A) 0.4 k/uL (0-1.0); Monocytes % (A) 4 %; Neutrophils # (A) 9.2 k/uL (1.3-7.7); Neutrophils % (A) 86 %; Platelet Count 200 k/uL (150-450); RBC 4.38 m/uL (4.30-5.90); RDW 13.3 % (11.5-15.5); WBC 10.7 k/uL (3.8-10.6)
--- NOTE | 2023-01-11 00:20 | ED ---
General Adult HPI - General Chief complaint: Recheck/Abnormal Lab/Rx Stated complaint: Low blood sugar Time Seen by Provider: 01/10/23 23:59 Source: EMS Mode of arrival: EMS - History of Present Illness Initial comments: Dictation was produced using [employer] dictation software. please excuse any grammatical, word or spelling errors. Chief Complaint: 72-year-old insulin-dependent diabetic male presents to the ER for hyperglycemia History of Present Illness: 72-year-old male brought in from home by EMS. Patient started to feel hypoglycemic. He rang a alarmed at his home which notified neighbors and staff that patient needed some help. EMS ended up being called patient was found to be hypoglycemic with a blood sugar of 35. He was given dextrose with improvement of his glucose to 100. Patient states he feels at baseline currently. He states he takes insulin once daily. States that he has been eating. Denies any symptoms otherwise. The ROS documented in this emergency department record has been reviewed and confirmed by me. Those systems with pertinent positive or negative responses have been documented in the HPI. All other systems are other negative and/or noncontributory. - Related Data Home Medications Medication Instructions Recorded Confirmed Ferrous Sulfate [Iron] 325 mg PO DAILY 08/30/17 12/30/19 Insuln Asp Prt/Insulin Aspart 6 unit SQ W/SUPPER 08/30/17 12/30/19 [NovoLOG MIX 70-30 VIAL] Insuln Asp Prt/Insulin Aspart 12 unit SQ QAM 08/30/17 12/30/19 [NovoLOG MIX 70-30 VIAL] Pravastatin Sodium 80 mg PO HS 08/30/17 12/30/19 Rivaroxaban [Xarelto] 20 mg PO DAILY 08/30/17 12/30/19 hydrALAZINE HCL [Apresoline] 100 mg PO TID 08/30/17 12/30/19 Losartan Potassium 50 mg PO DAILY 12/30/19 12/30/19 Metoprolol Succinate [Toprol XL] 100 mg PO DAILY 12/30/19 01/01/20 Omeprazole 40 mg PO DAILY 12/30/19 12/30/19 metFORMIN HCL 500 mg PO BID 12/30/19 12/30/19 Previous Rx's Medication Instructions Recorded Furosemide [Lasix] 40 mg PO BID #0 tablet 01/01/20 Spironolactone [Aldactone] 25 mg PO DAILY #0 tablet 01/01/20 Allergies Allergy/AdvReac Type Severity Reaction Status Date / Time codeine AdvReac Severe Verified 12/28/22 19:32 insomnia Review of Systems ROS Statement: Those systems with pertinent positive or pertinent negative responses have been documented in the HPI. ROS Other: All systems not noted in ROS Statement are negative. Past Medical History Past Medical History: Unable to Obtain Additional Past Medical History / Comment(s): Afib with RVR/ablation, IDDM type II, pt denies hx of CHRISSIE/CKD as documented in past medical record and does not know why he takes iron, [place] bilaterally-wears aide in R ear History of Any Multi-Drug Resistant Organisms: Unobtainable Past Surgical History: Unable to Obtain Additional Past Surgical History / Comment(s): 2011 cardiac cath, R eye surgery/lens implant-pt believes d/t infection, colonoscopy. Past Anesthesia/Blood Transfusion Reactions: No Reported Reaction Past Psychological History: Unable to Obtain Smoking Status: Unknown if ever smoked Past Alcohol Use History: Unable to Obtain Past Drug Use History: Unable to Obtain - Past Family History Father Family Medical History: Myocardial Infarction ([place]) Additional Family Medical History / Comment(s): Father of a [place] but pt cannot recall at what age. Mother Family Medical History: Cancer Additional Family Medical History / Comment(s): Pt cannot recall type of cancer. General Exam - General Exam Comments Initial Comments: PHYSICAL EXAM: General Impression: Alert and oriented x3, not in acute distress HEENT: Normocephalic atraumatic, extra-ocular movements intact, pupils equal and reactive to light bilaterally, mucous membranes moist. Cardiovascular: Heart regular rate and rhythm Chest: Able to complete full sentences, no retractions, no tachypnea Abdomen: abdomen soft, non-tender, non-distended, no organomegaly Musculoskeletal: Pulses present and equal in all extremities, no peripheral edema Motor: no focal deficits noted Neurological: CN II-XII grossly intact, no focal motor or sensory deficits noted Skin: Intact with no visualized rashes Psych: Normal affect and mood Course Vital Signs 01/10/23 01/11/23 23:51 00:49 Temperature 97.4 F L Pulse Rate 81 88 Respiratory 19 19 Rate Blood Pressure 157/99 157/93 O2 Sat by Pulse 95 94 L Oximetry Medical Decision Making - Medical Decision Making Was pt. sent in by a medical professional or institution (MARIA ISABEL Prabhakar, METER SUPERVISOR, urgent care, hospital, or assisted...) When possible be specific @ -No Did you speak to anyone other than the patient for history (EMS, parent, family, police, friend...)? What history was obtained from this source @ -No Did you review nursing and triage notes (agree or disagree)? Why? @ -I reviewed and agree with nursing and triage notes Were old charts reviewed (outside hosp., previous admission, EMS record, old EKG, old radiological studies, urgent care reports/EKG's, assisted records)? Report findings @ -No old charts were reviewed Differential Diagnosis (chest pain, altered mental status, abdominal pain women, abdominal pain men, vaginal bleeding, musculoskeletal, weakness, fever, dyspnea, syncope, headache, dizziness, GI bleed, back pain, seizure, CVA, palpatations, mental health)? @ -not applicable EKG interpreted by me (3pts min.). @ -None done X-rays interpreted by me (1pt min.). @ -None done CT interpreted by me (1pt min.). @ -None done U/S interpreted by me (1pt. min.). @ -None done What testing was considered but not performed or refused? (CT, X-rays, U/S, labs)? Why? @ -None What meds were considered but not given or refused? Why? @ -None Did you discuss the management of the patient with other professionals (professionals i.e. MARIA ISABEL Prabhakar, METER SUPERVISOR, lab, RT, psych nurse, social human services assistants, food service manager, teacher, police officer, casework specialist)? Give summary @ -No Was smoking cessation discussed for >3mins.? @ -No Was critical care preformed (if so, how long)? @ -No Were there social determinants of health that impacted care today? How? (Homelessness, low income, unemployed, alcoholism, drug addiction, transportation, low edu. Level, literacy, decrease access to med. care, correction, rehab)? @ -No Was there de-escalation of care discussed even if they declined (Discuss DNR or withdrawal of care, Hospice)? DNR status @ -No What co-morbidities impacted this encounter? (DM, HTN, Smoking, COPD, CAD, Cancer, CVA, ARF, Chemo, Hep., AIDS, mental health diagnosis, sleep apnea, morbid obesity)? @ -None Was patient admitted / discharged? Hospital course, mention meds given and route, prescriptions, significant lab abnormalities, going to OR and other pertinent info. @ -72-year-old male presents emergency Department hyperglycemia. States that he only takes his insulin once daily. He did report that he had his insulin medications adjusted due to recent elevation in hemoglobin A1c. Laboratory evaluation obtained. Patient is mildly acidotic. Initial sugar was 72. Patient monitored and his sugar dropped into 38. Patient given another dextrose. Suspect that patient may have accidentally or intentionally taking too much insulin. Nonetheless he will be admitted observation for hypoglycemia monitored. Undiagnosed new problem with uncertain prognosis? @ -No Drug Therapy requiring intensive monitoring for toxicity (Heparin, Nitro, Insulin, Cardizem)? @ -No Were any procedures done? @ -No Diagnosis/symptom? Acute, or Chronic, or Acute on Chronic? Uncomplicated (without systemic symptoms) or Complicated (systemic symptoms)? @ -hypoglycemia Side effects of treatment? @ -No Exacerbation, Progression, or Severe Exacerbation? @ -No Poses a threat to life or bodily function? How? (Chest pain, [place], [place], pneumonia, PE, COPD, DKA, ARF, appy, cholecystitis, CVA, Diverticulitis, Homicidal, Suicidal, threat to staff... and all critical care pts) @ -yes - Lab Data Result diagrams: 01/11/23 00:02 01/11/23 00:02 Lab Results 01/11/23 01/11/23 01/11/23 Range/Units 00:00 00:02 00:02 WBC 10.7 H (3.8-10.6) k/uL RBC 4.38 (4.30-5.90) m/uL Hgb 14.1 (13.0-17.5) gm/dL Hct 41.5 (39.0-53.0) % MCV 94.8 (80.0-100.0) fL MCH 32.2 (25.0-35.0) pg MCHC 33.9 (31.0-37.0) g/dL RDW 13.3 (11.5-15.5) % Plt Count 200 (150-450) k/uL MPV 7.9 Neutrophils % 86 % Lymphocytes % 8 % Monocytes % 4 % Eosinophils % 1 % Basophils % 0 % Neutrophils # 9.2 H (1.3-7.7) k/uL Lymphocytes # 0.9 L (1.0-4.8) k/uL Monocytes # 0.4 (0-1.0) k/uL Eosinophils # 0.1 (0-0.7) k/uL Basophils # 0.0 (0-0.2) k/uL Sodium 144 (137-145) mmol/L Potassium 4.1 (3.5-5.1) mmol/L Chloride 116 H (98-107) mmol/L Carbon Dioxide 17 L (22-30) mmol/L Anion Gap 11 mmol/L BUN 32 H (9-20) mg/dL Creatinine 1.73 H (0.66-1.25) mg/dL Est GFR (CKD-EPI)AfAm 44 (>60 ml/min/1.73 sqM) Est GFR (CKD-EPI)NonAf 38 (>60 ml/min/1.73 sqM) Glucose 75 (74-99) mg/dL POC Glucose (mg/dL) 72 (70-110) mg/dL POC Glu Furniture Sprayer ID Jess Joshi Calcium 8.6 (8.4-10.2) mg/dL 01/11/23 01/11/23 Range/Units 00:59 01:23 WBC (3.8-10.6) k/uL RBC (4.30-5.90) m/uL Hgb (13.0-17.5) gm/dL Hct (39.0-53.0) % MCV (80.0-100.0) fL MCH (25.0-35.0) pg MCHC (31.0-37.0) g/dL RDW (11.5-15.5) % Plt Count (150-450) k/uL MPV Neutrophils % % Lymphocytes % % Monocytes % % Eosinophils % % Basophils % % Neutrophils # (1.3-7.7) k/uL Lymphocytes # (1.0-4.8) k/uL Monocytes # (0-1.0) k/uL Eosinophils # (0-0.7) k/uL Basophils # (0-0.2) k/uL Sodium (137-145) mmol/L Potassium (3.5-5.1) mmol/L Chloride (98-107) mmol/L Carbon Dioxide (22-30) mmol/L Anion Gap mmol/L BUN (9-20) mg/dL Creatinine (0.66-1.25) mg/dL Est GFR (CKD-EPI)AfAm (>60 ml/min/1.73 sqM) Est GFR (CKD-EPI)NonAf (>60 ml/min/1.73 sqM) Glucose (74-99) mg/dL POC Glucose (mg/dL) 38 L 114 H (70-110) mg/dL POC Glu Furniture Sprayer ID Madelyn, Jess Madelyn, Jess Calcium (8.4-10.2) mg/dL Disposition Clinical Impression: Hypoglycemia Disposition: ADMITTED IP TO THIS HOSP Condition: Fair Referrals: Balaji Fountain MD [Primary Care Provider] - 1-2 days Decision Time: 01:39
[2023-01-11 00:55] LABS: African American GFR (CKD) 44 (>60 ml/min/1.73 sqM); Anion Gap 11 mmol/L; Blood Urea Nitrogen 32 mg/dL (9-20); Calcium 8.6 mg/dL (8.4-10.2); Carbon Dioxide 17 mmol/L (22-30); Chloride 116 mmol/L (98-107); Glucose 75 mg/dL (74-99); Non-African American GFR(CKD) 38 (>60 ml/min/1.73 sqM); Potassium 4.1 mmol/L (3.5-5.1); Sodium 144 mmol/L (137-145)
[2023-01-11] MEDS ORDERED: DEXTROSE 50% SYRINGE 50 ML IVP STA ×2 (01:04→01:10)
[2023-01-11 01:05] LABS: Glucose,Whole Blood 38 mg/dL (70-110)
[2023-01-11 01:25] LABS: Glucose,Whole Blood 114 mg/dL (70-110)
[2023-01-11] MEDS ORDERED: NALOXONE 0.4 MG/ML 1 ML VIAL IV PRN (01:36)
[2023-01-11 02:06] LABS: Glucose,Whole Blood 76 mg/dL (70-110)
[2023-01-11] MEDS: DEXTROSE 10% IN WATER 1,000 ML with SODIUM CHLORIDE 4MEQ/ML VIAL 153.8 MEQ IV SCH ×2 (03:01→14:05)
[2023-01-11 03:02] LABS: Glucose,Whole Blood 42 mg/dL (70-110)
[2023-01-11 03:38] LABS: Glucose,Whole Blood 62 mg/dL (70-110)
[2023-01-11 04:06] LABS: Glucose,Whole Blood 72 mg/dL (70-110)
[2023-01-11 04:57] LABS: Glucose,Whole Blood 109 mg/dL (70-110)
[2023-01-11 06:00] LABS: Glucose,Whole Blood 138 mg/dL (70-110)
[2023-01-11 06:50] LABS: Glucose,Whole Blood 193 mg/dL (70-110)
[2023-01-11 09:04] LABS: Glucose,Whole Blood 213 mg/dL (70-110)
[2023-01-11 11:04] LABS: Glucose,Whole Blood 184 mg/dL (70-110)
[2023-01-11] MEDS: METOPROLOL SUCCINATE (ER) 100 MG TAB.ER.24H PO SCH ×2 (12:40→20:16)
[2023-01-11] MEDS: SPIRONOLACTONE 25 MG TAB PO SCH (12:40)
[2023-01-11 13:03] LABS: Glucose,Whole Blood 184 mg/dL (70-110)
[2023-01-11 15:32] LABS: Glucose,Whole Blood 228 mg/dL (70-110)
[2023-01-11 17:13] LABS: Glucose,Whole Blood 192 mg/dL (70-110)
[2023-01-11] MEDS: hydrOXYzine pamoate 25 MG CAP PO SCH ×2 (18:00→20:16)
[2023-01-11 19:11] LABS: Glucose,Whole Blood 169 mg/dL (70-110)
[2023-01-11] MEDS ORDERED: METOPROLOL SUCCINATE (ER) 100 MG TAB.ER.24H PO SCH (21:00)
[2023-01-11 21:17] LABS: Glucose,Whole Blood 193 mg/dL (70-110)
[2023-01-11 23:12] LABS: Glucose,Whole Blood 176 mg/dL (70-110)
--- NOTE | 2023-01-11 23:14 | HP ---
HISTORY AND PHYSICAL CHIEF COMPLAINT: Low blood sugar. HISTORY OF PRESENT ILLNESS: This is an another admission for this 72-year-old white male with diabetes. He does have marginal mental function. He came to the emergency room with blood sugars in the 20s and 30s. He is not sure if he took his insulin improperly or too much. The treatment in the emergency room would not restore a normal blood sugar and he was admitted. REVIEW OF SYSTEMS: He denies any confusion, difficulty with vision hearing, chest pain, shortness of breath, abdominal pain, etc. Past medical history, family history and personal and social histories are all otherwise unremarkable or noncontributory. PHYSICAL EXAMINATION: VITAL SIGNS: Normal. HEAD, EARS, EYES, NOSE, MOUTH AND THROAT: Normal. CHEST: Clear. CARDIAC: Normal. ABDOMEN: Slightly protuberant, soft and nontender without any visceromegaly or masses. Bowel sounds are present. EXTREMITIES: Normal. NEUROLOGICAL: He is intact. He is admitted to the hospital with diagnoses, 1. Hypoglycemia. 2. Insulin-dependent type 2 diabetes mellitus. PLAN: 1. Bed rest. 2. IV fluids. 3. Dextrose infusion until his blood sugar is stable. MMODL / IJN: [id number] /
[2023-01-12 02:56] LABS: Glucose,Whole Blood 145 mg/dL (70-110)
[2023-01-12] MEDS: PANTOPRAZOLE 40 MG TABLET PO SCH (05:21)
[2023-01-12 05:23] LABS: Glucose,Whole Blood 142 mg/dL (70-110)
[2023-01-12 07:02] LABS: Glucose,Whole Blood 168 mg/dL (70-110)
[2023-01-12] MEDS ORDERED: SPIRONOLACTONE 25 MG TAB PO SCH (09:00)
[2023-01-12 09:09] LABS: Glucose,Whole Blood 179 mg/dL (70-110)
[2023-01-12] MEDS: hydrOXYzine pamoate 25 MG CAP PO SCH ×3 (09:33→20:37)
[2023-01-12] MEDS: TAMSULOSIN 0.4 MG CAP.ER.24H PO SCH (09:34)
[2023-01-12] MEDS: METOPROLOL SUCCINATE (ER) 100 MG TAB.ER.24H PO SCH ×2 (09:34→20:37)
[2023-01-12] MEDS: SPIRONOLACTONE 25 MG TAB PO SCH (09:34)
[2023-01-12 11:06] LABS: Glucose,Whole Blood 240 mg/dL (70-110)
[2023-01-12 12:56] LABS: Glucose,Whole Blood 263 mg/dL (70-110)
[2023-01-12 15:04] VITALS: RESP 16
[2023-01-12] MEDS: DEXTROSE 10% IN WATER 1,000 ML with SODIUM CHLORIDE 4MEQ/ML VIAL 153.8 MEQ IV SCH (15:30)
[2023-01-12 15:39] LABS: Glucose,Whole Blood 245 mg/dL (70-110)
[2023-01-12 17:18] LABS: Glucose,Whole Blood 226 mg/dL (70-110)
--- NOTE | 2023-01-12 18:35 | PN ---
PROGRESS NOTE CHIEF COMPLAINT: Hypoglycemia. HISTORY OF PRESENT ILLNESS: This gentleman is doing well. Sugars are rising and will stop D5 and water and started back on insulin. PHYSICAL EXAMINATION: GENERAL: He is awake and alert. CHEST: Clear. CARDIAC: Normal. ABDOMEN: Soft, nontender. IMPRESSION: Hypoglycemia and uncontrolled diabetes. PLAN: Stop D10 infusion and resume low dose of Levemir. MMODL / IJN: [id number] /
[2023-01-12 18:37] LABS: Glucose,Whole Blood 287 mg/dL (70-110)
[2023-01-12 19:06] LABS: Glucose,Whole Blood 192 mg/dL (70-110)
[2023-01-12 21:02] LABS: Glucose,Whole Blood 213 mg/dL (70-110)
[2023-01-12 23:03] LABS: Glucose,Whole Blood 186 mg/dL (70-110)
[2023-01-13 01:53] LABS: Glucose,Whole Blood 157 mg/dL (70-110)
[2023-01-13 03:13] LABS: Glucose,Whole Blood 139 mg/dL (70-110)
[2023-01-13 04:26] LABS: Glucose,Whole Blood 147 mg/dL (70-110)
[2023-01-13] MEDS: PANTOPRAZOLE 40 MG TABLET PO SCH (06:47)
[2023-01-13 06:55] LABS: Glucose,Whole Blood 161 mg/dL (70-110)
[2023-01-13] MEDS ORDERED: INSULIN DETEMIR (LEVEMIR) 100 UNIT/ML SYR SQ SCH (07:00)
[2023-01-13 07:46] VITALS: BP 195/118; PULSE 75; TEMP 97.5
[2023-01-13 07:58] LABS: Glucose,Whole Blood 181 mg/dL (70-110)
[2023-01-13] MEDS: METOPROLOL SUCCINATE (ER) 100 MG TAB.ER.24H PO SCH (09:00)
[2023-01-13] MEDS: TAMSULOSIN 0.4 MG CAP.ER.24H PO SCH (09:00)
[2023-01-13] MEDS: SPIRONOLACTONE 25 MG TAB PO SCH (09:00)
[2023-01-13] MEDS: hydrOXYzine pamoate 25 MG CAP PO SCH (09:00)
[2023-01-13 09:08] LABS: Glucose,Whole Blood 192 mg/dL (70-110)
[2023-01-13 11:13] LABS: Glucose,Whole Blood 218 mg/dL (70-110)
--- NOTE | 2023-01-13 19:22 | DS ---
DISCHARGE SUMMARY CHIEF COMPLAINT: Hypoglycemia. HISTORY OF PRESENT ILLNESS AND PHYSICAL EXAMINATION: Details of this man's history and physical can be found in the initial workup. LABORATORY STUDIES: While he was in the hospital, he had laboratory studies, details of which can be found in the laboratory section of his chart. COURSE IN THE HOSPITAL: After admission, he was placed on bedrest, started on intravenous fluids and D10 and water. Blood sugars were elevated, remained stable. He was started back on insulin and was doing well and felt that he could be discharged on the . He will go home on his usual activity, diet, and regular medication and be followed up in the office in several days. FINAL DIAGNOSES: 1. Iatrogenic hypoglycemia. 2. Poorly controlled insulin dependent diabetes mellitus. 3. Hypertension. OPERATIONS: None. CONSULTATION: None. He is improved. MMODL / DOMONIQUEN: [id number] /
== END 2023-01-13 12:53 | disposition home or self-care (01) ==
LOC: EC 23:50 → 6NMEDSUR 01-11 01:37
PROVIDERS: ADMIT Family Medicine; ATTEND Family Medicine
DX: E11.649 Type 2 diabetes mellitus with hypoglycemia without coma (principal); I48.91 Unspecified atrial fibrillation; G47.33 Obstructive sleep apnea (adult) (pediatric); I10 Essential (primary) hypertension; Z79.01 Long term (current) use of anticoagulants; Z79.4 Long term (current) use of insulin; Z79.899 Other long term (current) drug therapy; Z79.84 Long term (current) use of oral hypoglycemic drugs; Z88.5 Allergy status to narcotic agent
CPT/HCPCS: 96365; 96366 ×2; 96372; 96376; 99285; 36415; 93005; 80048; 85025; G0378 ×3

== ENCOUNTER 2023-01-14 15:25 | Observation (INO) | payer MEDICARE, OTHER ==
--- NOTE | 2023-01-14 16:51 | ED ---
General Adult HPI - General Chief complaint: Weakness Stated complaint: Increased falls Time Seen by Provider: 01/14/23 15:45 Source: patient, RN notes reviewed, old records reviewed Mode of arrival: ambulatory Limitations: no limitations - History of Present Illness Initial comments: This is a 72-year-old male who resents to the emergency department because he is becoming too weak and falling more often such that he can't stay at the facility to visit currently sitting up. Patient went to see his primary medical care doctor primary medical care doctor sent the patient in emergency room to be admitted until he can find another facility for him to go to. Patient denies any chest pain patient denies any difficulty breathing. Patient denies any abdominal pain patient has nausea vomiting diarrhea. Patient denies any recent injury or trauma even though he has fallen. Patient denies any headache patient denies numbness or weakness. - Related Data Home Medications Medication Instructions Recorded Confirmed Metoprolol Succinate [Toprol XL] 100 mg PO BID 12/30/19 01/14/23 Omeprazole 40 mg PO DAILY 12/30/19 01/14/23 metFORMIN HCL 500 mg PO BID 12/30/19 01/14/23 Hydrocortisone Cream 1 applic TOPICAL QID PRN 01/11/23 01/14/23 [Hydrocortisone 2.5% Cream] INSULIN ASPART (NovoLOG) [NovoLOG 6 unit SQ AC-SUPPER 01/11/23 01/14/23 (formulary)] INSULIN ASPART (NovoLOG) [NovoLOG 12 unit SQ AC-BRKFST 01/11/23 01/14/23 (formulary)] Linagliptin [Tradjenta] 5 mg PO DAILY 01/11/23 01/14/23 Tamsulosin HCl [Flomax] 0.8 mg PO DAILY 01/11/23 01/14/23 hydrOXYzine pamoate [Vistaril] 25 mg PO TID 01/11/23 01/14/23 Insulin Glargine [Lantus Vial] 10 unit SQ DAILY@0700 01/14/23 01/14/23 Previous Rx's Medication Instructions Recorded Spironolactone [Aldactone] 25 mg PO DAILY #0 tablet 01/01/20 Allergies Allergy/AdvReac Type Severity Reaction Status Date / Time codeine AdvReac Severe Verified 01/14/23 16:43 insomnia Review of Systems ROS Statement: Those systems with pertinent positive or pertinent negative responses have been documented in the HPI. ROS Other: All systems not noted in ROS Statement are negative. Past Medical History Past Medical History: Unable to Obtain Additional Past Medical History / Comment(s): Afib with RVR/ablation, IDDM type II, pt denies hx of CHRISSIE/CKD as documented in past medical record and does not know why he takes iron, VENETIE bilaterally-wears aide in R ear History of Any Multi-Drug Resistant Organisms: Unobtainable Past Surgical History: Unable to Obtain Additional Past Surgical History / Comment(s): 2011 cardiac cath, R eye surgery/lens implant-pt believes d/t infection, colonoscopy. Past Anesthesia/Blood Transfusion Reactions: No Reported Reaction Past Psychological History: Unable to Obtain Smoking Status: Unknown if ever smoked Past Alcohol Use History: Unable to Obtain Past Drug Use History: Unable to Obtain - Past Family History Father Family Medical History: Myocardial Infarction (OR) Additional Family Medical History / Comment(s): Father of a OR but pt cannot recall at what age. Mother Family Medical History: Cancer Additional Family Medical History / Comment(s): Pt cannot recall type of cancer. General Exam - General Exam Comments Initial Comments: GENERAL: Patient is well-developed and well-nourished. Patient is nontoxic and well- hydrated and is in no acute distress. ENT: Neck is soft and supple. No significant lymphadenopathy is noted. Oropharynx is clear. Moist mucous membranes. Neck has full range of motion without eliciting any pain. EYES: The sclera were anicteric and conjunctiva were pink and moist. Extraocular movements were intact and pupils were equal round and reactive to light. Eyelids were unremarkable. PULMONARY: Unlabored respirations. Good breath sounds bilaterally. No audible rales rhonchi or wheezing was noted. CARDIOVASCULAR: There is a regular rate and rhythm without any murmurs gallops or rubs. ABDOMEN: Soft and nontender with normal bowel sounds. SKIN: Skin is clear with no lesions or rashes and otherwise unremarkable. NEUROLOGIC: Patient is alert and oriented x3. Cranial nerves II through XII are grossly intact. Motor and sensory are also intact. Normal speech, volume and content. Symmetrical smile. MUSCULOSKELETAL: Normal extremities with adequate strength and full range of motion. LYMPHATICS: No significant lymphadenopathy is noted PSYCHIATRIC: Normal psychiatric evaluation. Limitations: no limitations Course Vital Signs 01/14/23 01/14/23 15:30 17:40 Temperature 97.9 F Pulse Rate 88 88 Respiratory 20 16 Rate Blood Pressure 135/85 154/110 O2 Sat by Pulse 100 95 Oximetry Medical Decision Making - Medical Decision Making EKG as interpreted by myself. EKG shows atrial fibrillation at 81 bpm QRS is 105 Q-T intervals 390 QTC is 435 per patient's EKG shows no ST segment elevation or depression. Was pt. sent in by a medical professional or institution (, PA, PRODUCT MARKETING SPECIALIST, urgent care, hospital, or alf...) When possible be specific @ -Dr. Swanson and sent the patient and he admitted Did you speak to anyone other than the patient for history (EMS, parent, family, police, friend...)? What history was obtained from this source @ -No Did you review nursing and triage notes (agree or disagree)? Why? @ -I reviewed and agree with nursing and triage notes Were old charts reviewed (outside hosp., previous admission, EMS record, old EKG, old radiological studies, urgent care reports/EKG's, alf records)? Report findings @ -I lab work and prior radiological studies Differential Diagnosis (chest pain, altered mental status, abdominal pain women, abdominal pain men, vaginal bleeding, weakness, fever, dyspnea, syncope, headache, dizziness, GI bleed, back pain, seizure, CVA, palpatations, mental health, musculoskeletal)? @ -Differential Weakness: Hypoglycemia, shock, sepsis, hyponatremia, anemia, infection, OR, ETOH, adverse medicine reaction, overdose, stroke, this is not meant to be an all-inclusive list. EKG interpreted by me (3pts min.). @ -As above X-rays interpreted by me (1pt min.). @ -Negative chest x-ray CT interpreted by me (1pt min.). @ -None done U/S interpreted by me (1pt. min.). @ -None done What testing was considered but not performed or refused? (CT, X-rays, U/S, labs)? Why? @ -None What meds were considered but not given or refused? Why? @ -None Did you discuss the management of the patient with other professionals (professionals i.e. , MARIA ISABEL, PRODUCT MARKETING SPECIALIST, lab, RT, psych nurse, psychologist social, hydrogenation still operator, t eacher, fisheries technical officer, case worker)? Give summary @ -I spoke with Dr. Fountain he agreed to admit the patient admitted the patient wrote admitting orders Was smoking cessation discussed for >3mins.? @ -No Was critical care preformed (if so, how long)? @ -No Were there social determinants of health that impacted care today? How? (Homelessness, low income, unemployed, alcoholism, drug addiction, transportation, low edu. Level, literacy, decrease access to med. care, senior living, rehab)? @ -No Was there de-escalation of care discussed even if they declined (Discuss DNR or withdrawal of care, Hospice)? DNR status @ -No What co-morbidities impacted this encounter? (DM, HTN, Smoking, COPD, CAD, Cancer, CVA, ARF, Chemo, Hep., AIDS, mental health diagnosis, sleep apnea, morbid obesity)? @ -None Was patient admitted / discharged? Hospital course, mention meds given and route , prescriptions, significant lab abnormalities, going to OR and other pertinent info. @ -Patient continued to feel weak and stated he was unstable on his feet so patient will be admitted to Dr. Swanson and Undiagnosed new problem with uncertain prognosis? @ -No Drug Therapy requiring intensive monitoring for toxicity (Heparin, Nitro, Insulin, Cardizem)? @ -No Were any procedures done? @ -No Diagnosis/symptom? @ -Weakness Acute, or Chronic, or Acute on Chronic? @ -Acute Uncomplicated (without systemic symptoms) or Complicated (systemic symptoms)? @ -Complicated Side effects of treatment? @ -No Exacerbation, Progression, or Severe Exacerbation? @ -No Poses a threat to life or bodily function? How? (Chest pain, USA, OR, pneumonia, PE, COPD, DKA, ARF, appy, cholecystitis, CVA, Diverticulitis, Homicidal, Suicidal, threat to staff... and all critical care pts) @ -No - Lab Data Result diagrams: 01/14/23 17:16 01/14/23 17:16 Lab Results 01/14/23 01/14/23 01/14/23 Range/Units 17:16 17:16 17:16 WBC 12.1 H (3.8-10.6) k/uL RBC 4.33 (4.30-5.90) m/uL Hgb 13.9 (13.0-17.5) gm/dL Hct 40.8 (39.0-53.0) % MCV 94.3 (80.0-100.0) fL MCH 32.0 (25.0-35.0) pg MCHC 33.9 (31.0-37.0) g/dL RDW 13.2 (11.5-15.5) % Plt Count 185 (150-450) k/uL MPV 8.2 Neutrophils % 75 % Lymphocytes % 15 % Monocytes % 6 % Eosinophils % 2 % Basophils % 0 % Neutrophils # 9.1 H (1.3-7.7) k/uL Lymphocytes # 1.8 (1.0-4.8) k/uL Monocytes # 0.7 (0-1.0) k/uL Eosinophils # 0.3 (0-0.7) k/uL Basophils # 0.0 (0-0.2) k/uL PT 11.3 (10.0-12.5) sec INR 1.0 (<1.2) APTT 27.5 (22.0-30.0) sec Sodium 138 (137-145) mmol/L Potassium 4.3 (3.5-5.1) mmol/L Chloride 109 H (98-107) mmol/L Carbon Dioxide 18 L (22-30) mmol/L Anion Gap 11 mmol/L BUN 28 H (9-20) mg/dL Creatinine 1.72 H (0.66-1.25) mg/dL Est GFR (CKD-EPI)AfAm 45 (>60 ml/min/1.73 sqM) Est GFR (CKD-EPI)NonAf 39 (>60 ml/min/1.73 sqM) Glucose 90 (74-99) mg/dL Plasma Lactic Acid Russell (0.7-2.0) mmol/L Calcium 8.8 (8.4-10.2) mg/dL Magnesium 1.4 L (1.6-2.3) mg/dL Total Bilirubin 1.1 (0.2-1.3) mg/dL AST 26 (17-59) U/L ALT 21 (4-49) U/L Alkaline Phosphatase 128 H (38-126) U/L Troponin I (0.000-0.034) ng/mL Total Protein 6.7 (6.3-8.2) g/dL Albumin 3.5 (3.5-5.0) g/dL TSH 2.340 (0.465-4.680) mIU/L 01/14/23 01/14/23 Range/Units 17:16 17:16 WBC (3.8-10.6) k/uL RBC (4.30-5.90) m/uL Hgb (13.0-17.5) gm/dL Hct (39.0-53.0) % MCV (80.0-100.0) fL MCH (25.0-35.0) pg MCHC (31.0-37.0) g/dL RDW (11.5-15.5) % Plt Count (150-450) k/uL MPV Neutrophils % % Lymphocytes % % Monocytes % % Eosinophils % % Basophils % % Neutrophils # (1.3-7.7) k/uL Lymphocytes # (1.0-4.8) k/uL Monocytes # (0-1.0) k/uL Eosinophils # (0-0.7) k/uL Basophils # (0-0.2) k/uL PT (10.0-12.5) sec INR (<1.2) APTT (22.0-30.0) sec Sodium (137-145) mmol/L Potassium (3.5-5.1) mmol/L Chloride (98-107) mmol/L Carbon Dioxide (22-30) mmol/L Anion Gap mmol/L BUN (9-20) mg/dL Creatinine (0.66-1.25) mg/dL Est GFR (CKD-EPI)AfAm (>60 ml/min/1.73 sqM) Est GFR (CKD-EPI)NonAf (>60 ml/min/1.73 sqM) Glucose (74-99) mg/dL Plasma Lactic Acid Russell 1.0 (0.7-2.0) mmol/L Calcium (8.4-10.2) mg/dL Magnesium (1.6-2.3) mg/dL Total Bilirubin (0.2-1.3) mg/dL AST (17-59) U/L ALT (4-49) U/L Alkaline Phosphatase (38-126) U/L Troponin I <0.012 (0.000-0.034) ng/mL Total Protein (6.3-8.2) g/dL Albumin (3.5-5.0) g/dL TSH (0.465-4.680) mIU/L Disposition Clinical Impression: Generalized weakness, Multiple falls Disposition: ADMITTED IP TO THIS HOSP Referrals: Balaji Fountain MD [Primary Care Provider] - 1-2 days Time of Disposition: 19:17
[2023-01-14 17:46] LABS: Basophils % (A) 0 %; Eosinophils # (A) 0.3 k/uL (0-0.7); Eosinophils % (A) 2 %; HCT 40.8 % (39.0-53.0); HGB 13.9 gm/dL (13.0-17.5); Lymphocytes # (A) 1.8 k/uL (1.0-4.8); Lymphocytes % (A) 15 %; MCHC 33.9 g/dL (31.0-37.0); MCV 94.3 fL (80.0-100.0); Mean Platelet Volume 8.2; Monocytes # (A) 0.7 k/uL (0-1.0); Monocytes % (A) 6 %; Neutrophils # (A) 9.1 k/uL (1.3-7.7); Neutrophils % (A) 75 %; Platelet Count 185 k/uL (150-450); RBC 4.33 m/uL (4.30-5.90); RDW 13.2 % (11.5-15.5); WBC 12.1 k/uL (3.8-10.6)
[2023-01-14 17:58] LABS: Partial Thromboplastin Time 27.5 sec (22.0-30.0); Prothrombin Time 11.3 sec (10.0-12.5)
--- NOTE | 2023-01-14 18:06 | XR ---
EXAMINATION TYPE: XR chest 2V DATE OF EXAM: 01/14/2023 COMPARISON: 10/22/2022 INDICATION: Weakness TECHNIQUE: Frontal and lateral views of the chest are obtained. FINDINGS: The heart size is now be prominent. Pacemaker overlies the left chest.. The pulmonary vasculature is normal. The lungs are clear. IMPRESSION: 1. No acute pulmonary process. 2. Borderline prominence of the heart size.
[2023-01-14 18:08] LABS: ALT 21 U/L (4-49); AST 26 U/L (17-59); African American GFR (CKD) 45 (>60 ml/min/1.73 sqM); Albumin 3.5 g/dL (3.5-5.0); Alkaline Phosphatase 128 U/L (38-126); Anion Gap 11 mmol/L; Blood Urea Nitrogen 28 mg/dL (9-20); Calcium 8.8 mg/dL (8.4-10.2); Carbon Dioxide 18 mmol/L (22-30); Chloride 109 mmol/L (98-107); Glucose 90 mg/dL (74-99); Magnesium 1.4 mg/dL (1.6-2.3); Non-African American GFR(CKD) 39 (>60 ml/min/1.73 sqM); Potassium 4.3 mmol/L (3.5-5.1); Sodium 138 mmol/L (137-145); Total Bilirubin 1.1 mg/dL (0.2-1.3); Total Protein 6.7 g/dL (6.3-8.2)
[2023-01-14] MEDS ORDERED: hydrALAZINE HCL 20 MG/ML 1 ML VIAL IVP STA (19:43)
[2023-01-14] MEDS ORDERED: HYDROCORTISONE 1% CREAM 30 GM TUBE TOPICAL PRN (20:45)
[2023-01-14 21:11] LABS: Glucose,Whole Blood 85 mg/dL (70-110)
[2023-01-14] MEDS: METOPROLOL SUCCINATE (ER) 100 MG TAB.ER.24H PO SCH (21:20)
[2023-01-14] MEDS: hydrOXYzine pamoate 25 MG CAP PO SCH (21:20)
[2023-01-14] MEDS: metFORMIN 500 MG TAB PO SCH (21:20)
[2023-01-15 02:08] LABS: Glucose,Whole Blood 136 mg/dL (70-110)
[2023-01-15 06:22] LABS: Glucose,Whole Blood 137 mg/dL (70-110)
[2023-01-15] MEDS: INSULIN DETEMIR (LEVEMIR) 100 UNIT/ML SYR SQ SCH (06:26)
[2023-01-15] MEDS: PANTOPRAZOLE 40 MG TABLET PO SCH (06:26)
[2023-01-15] MEDS: TAMSULOSIN 0.4 MG CAP.ER.24H PO SCH (08:19)
[2023-01-15] MEDS: metFORMIN 500 MG TAB PO SCH ×2 (08:20→17:51)
[2023-01-15] MEDS: LINAGLIPTIN 5 MG TABLET PO SCH (08:20)
[2023-01-15] MEDS: INSULIN ASPART (NovoLOG) 100 UNIT/ML VIAL SQ SCH ×2 (08:20→17:51)
[2023-01-15] MEDS: SPIRONOLACTONE 25 MG TAB PO SCH (08:20)
[2023-01-15] MEDS: hydrOXYzine pamoate 25 MG CAP PO SCH ×3 (09:45→22:39)
[2023-01-15] MEDS: METOPROLOL SUCCINATE (ER) 100 MG TAB.ER.24H PO SCH ×2 (09:46→22:39)
[2023-01-15] MEDS: NYSTATIN 100,000 UNIT/GM POWD 15 GM TOPICAL SCH ×2 (11:57→22:39)
[2023-01-15 11:58] LABS: Glucose,Whole Blood 191 mg/dL (70-110)
[2023-01-15 16:58] LABS: Glucose,Whole Blood 165 mg/dL (70-110)
[2023-01-15 17:08] LABS: Appearance,Urine Clear (Clear); Bilirubin,Urine Negative (Negative); Blood,Urine Negative (Negative); Color,Urine Yellow; Glucose,Urine (UA) Negative (Negative); Ketones,Urine Negative (Negative); Leukocyte Esterase,Urine Small (Negative); Mucus,Urine Rare /hpf; Nitrite,Urine Negative (Negative); Protein,Urine 2+ (Negative); RBC,Urine <1 /hpf (0-5); Specific Gravity,Urine 1.019 (1.001-1.035); Squamous Epithelial Cell,Urine 1 /hpf (0-4); Urobilinogen,Urine <2.0 mg/dL (<2.0); WBC,Urine 8 /hpf (0-5)
[2023-01-15 20:14] LABS: Glucose,Whole Blood 109 mg/dL (70-110)
[2023-01-16 02:26] LABS: Glucose,Whole Blood 115 mg/dL (70-110)
[2023-01-16 06:32] LABS: Glucose,Whole Blood 139 mg/dL (70-110)
[2023-01-16] MEDS: metFORMIN 500 MG TAB PO SCH ×2 (06:33→18:14)
[2023-01-16] MEDS: INSULIN DETEMIR (LEVEMIR) 100 UNIT/ML SYR SQ SCH (06:33)
[2023-01-16] MEDS: PANTOPRAZOLE 40 MG TABLET PO SCH (06:33)
[2023-01-16] MEDS: INSULIN ASPART (NovoLOG) 100 UNIT/ML VIAL SQ SCH ×2 (06:34→18:14)
[2023-01-16] MEDS: hydrOXYzine pamoate 25 MG CAP PO SCH ×3 (08:41→21:48)
[2023-01-16] MEDS: SPIRONOLACTONE 25 MG TAB PO SCH (08:41)
[2023-01-16] MEDS: NYSTATIN 100,000 UNIT/GM POWD 15 GM TOPICAL SCH ×2 (08:42→21:48)
[2023-01-16] MEDS: LINAGLIPTIN 5 MG TABLET PO SCH (08:42)
[2023-01-16] MEDS: TAMSULOSIN 0.4 MG CAP.ER.24H PO SCH (08:42)
[2023-01-16] MEDS: METOPROLOL SUCCINATE (ER) 100 MG TAB.ER.24H PO SCH ×2 (11:45→21:48)
[2023-01-16 11:47] LABS: Glucose,Whole Blood 232 mg/dL (70-110)
--- NOTE | 2023-01-16 14:55 | PN ---
PROGRESS NOTE DATE OF SERVICE: 01/15/2023 CHIEF COMPLAINT: General debility and failure to thrive. HISTORY OF PRESENT ILLNESS: This gentleman is stable with no new problems. He has been referred for discharge planning. He is unable to manage his insulin at home and he cannot live independently. He has had several falls of late. PHYSICAL EXAMINATION: CHEST: Clear. CARDIAC: Normal. ABDOMEN: Soft, nontender. IMPRESSION: 1. Uncontrolled diabetes mellitus due to general debility and weakness. 2. Frequent falling. PLAN: Report Checker and his friend will be looking at alternative living situations. MMODL / IJN: [id number] /
[2023-01-16 17:05] LABS: Glucose,Whole Blood 175 mg/dL (70-110)
[2023-01-16 20:49] LABS: Glucose,Whole Blood 63 mg/dL (70-110)
--- NOTE | 2023-01-16 22:22 | HP ---
HISTORY AND PHYSICAL CHIEF COMPLAINT: General debility and failure to thrive with frequent falling, confusion, and inability to manage his insulin-dependent diabetes. HISTORY OF PRESENT ILLNESS: This is a gentleman just in the hospital with hypoglycemia. He went home and has been experiencing falling and he is unable to manage his diabetes. He does have a mental debility, but he can no longer live independently as he has been. He has agreed to come in while different living situations are explored. He is best suited for assisted living. REVIEW OF SYSTEMS: He denies any headaches, focal neurologic problems, chest pain or shortness of breath, abdominal pain, nausea, vomiting, incontinence, urinary complaints, etc. Past medical history, family history, and personal and social histories are all unchanged from his recent admitting discharge summaries. ALLERGIES: He is allergic to codeine. MEDICATIONS: He has been on Levemir, pravastatin, metformin, omeprazole, and metoprolol. SOCIAL HISTORY: He does not smoke or drink. PHYSICAL EXAMINATION: VITAL SIGNS: Normal. HEAD, EARS, EYES, NOSE, MOUTH AND THROAT: Normal. CHEST: Clear. CARDIAC: Normal. ABDOMEN: Soft, nontender. EXTREMITIES: Normal. IMPRESSION: 1. General debility and failure to thrive. 2. Uncontrolled insulin-dependent diabetes mellitus. 3. History of hypertension. 4. Mental debility. PLAN: 1. Bedrest. 2. Fabric Inspector consult to explore options for a discharge. He has a friend, who helps him, who expresses interest in helping find a place for him to go. MMNAPOLEON / ROBERTO: [id number] /
[2023-01-17 00:29] LABS: Glucose,Whole Blood 84 mg/dL (70-110)
[2023-01-17 06:24] LABS: Glucose,Whole Blood 150 mg/dL (70-110)
[2023-01-17] MEDS: INSULIN DETEMIR (LEVEMIR) 100 UNIT/ML SYR SQ SCH (06:26)
[2023-01-17] MEDS: INSULIN ASPART (NovoLOG) 100 UNIT/ML VIAL SQ SCH ×2 (06:26→18:09)
[2023-01-17] MEDS: metFORMIN 500 MG TAB PO SCH ×2 (06:27→18:08)
[2023-01-17] MEDS: PANTOPRAZOLE 40 MG TABLET PO SCH (06:27)
[2023-01-17] MEDS: hydrOXYzine pamoate 25 MG CAP PO SCH ×3 (09:56→21:31)
[2023-01-17] MEDS: TAMSULOSIN 0.4 MG CAP.ER.24H PO SCH (09:56)
[2023-01-17] MEDS: METOPROLOL SUCCINATE (ER) 100 MG TAB.ER.24H PO SCH ×2 (09:56→21:31)
[2023-01-17] MEDS: LINAGLIPTIN 5 MG TABLET PO SCH (09:56)
[2023-01-17] MEDS: SPIRONOLACTONE 25 MG TAB PO SCH (09:56)
[2023-01-17] MEDS: NYSTATIN 100,000 UNIT/GM POWD 15 GM TOPICAL SCH ×2 (09:57→21:00)
[2023-01-17 13:37] LABS: Glucose,Whole Blood 165 mg/dL (70-110)
[2023-01-17 17:57] LABS: Glucose,Whole Blood 207 mg/dL (70-110)
[2023-01-17] MEDS: PENICILLIN G POTASSIUM 2,500,000 UNIT in DEXTROSE 5% IN WATER 100 ML IVPB SCH ×6 (18:08→23:27)
[2023-01-17 20:36] LABS: Glucose,Whole Blood 140 mg/dL (70-110)
--- NOTE | 2023-01-18 02:03 | PN ---
PROGRESS NOTE CHIEF COMPLAINT: General debility, weakness and uncontrolled diabetes. HISTORY OF PRESENT ILLNESS: This gentleman's sugars are doing well. PHYSICAL EXAMINATION: VITAL SIGNS: Normal. GENERAL: He feels fine. We are looking at some type of assisted living. He cannot go back where he was, where he lives alone and is falling and cannot manage his own diabetes. On physical exam, color is good. CHEST: Clear. CARDIAC: Normal. ABDOMEN: Protuberant, soft. EXTREMITIES: Normal. IMPRESSION: 1. General debility and failure to thrive. 2. Frequent falling. 3. Mental debility. 4. Uncontrolled type 2 insulin-dependent diabetes mellitus. PLAN: Continue to stabilize while Farmer General works with the family on placement. MMODL / IJN: [id number] /
--- NOTE | 2023-01-18 02:33 | PN ---
PROGRESS NOTE DATE OF SERVICE: 01/17/2023 CHIEF COMPLAINT: General debility. HISTORY OF PRESENT ILLNESS: This gentleman is stable. There has been no interval change. Blood sugars are under good control. PHYSICAL EXAMINATION: CHEST: Clear. CARDIAC: Normal. ABDOMEN: Soft, nontender. IMPRESSION: General debility and failure to thrive. PLAN: Await for arrangements to be made for assisted living or rehab. MMODL / IJN: [id number] /
[2023-01-18] MEDS: PENICILLIN G POTASSIUM 2,500,000 UNIT in DEXTROSE 5% IN WATER 100 ML IVPB SCH ×10 (04:27→20:50)
[2023-01-18] MEDS: metFORMIN 500 MG TAB PO SCH ×2 (05:28→18:29)
[2023-01-18] MEDS: INSULIN ASPART (NovoLOG) 100 UNIT/ML VIAL SQ SCH ×2 (05:28→18:28)
[2023-01-18] MEDS: PANTOPRAZOLE 40 MG TABLET PO SCH (05:28)
[2023-01-18 05:29] LABS: Glucose,Whole Blood 150 mg/dL (70-110)
[2023-01-18] MEDS: INSULIN DETEMIR (LEVEMIR) 100 UNIT/ML SYR SQ SCH (05:30)
[2023-01-18] MEDS: SPIRONOLACTONE 25 MG TAB PO SCH (08:58)
[2023-01-18] MEDS: TAMSULOSIN 0.4 MG CAP.ER.24H PO SCH (08:58)
[2023-01-18] MEDS: NYSTATIN 100,000 UNIT/GM POWD 15 GM TOPICAL SCH ×2 (08:59→20:51)
[2023-01-18] MEDS: hydrOXYzine pamoate 25 MG CAP PO SCH ×3 (08:59→20:51)
[2023-01-18] MEDS: METOPROLOL SUCCINATE (ER) 100 MG TAB.ER.24H PO SCH ×2 (08:59→20:51)
[2023-01-18] MEDS: LINAGLIPTIN 5 MG TABLET PO SCH (08:59)
[2023-01-18 12:35] LABS: Glucose,Whole Blood 224 mg/dL (70-110)
[2023-01-18 17:24] LABS: Glucose,Whole Blood 194 mg/dL (70-110)
[2023-01-18 22:11] LABS: Glucose,Whole Blood 145 mg/dL (70-110)
--- NOTE | 2023-01-18 22:37 | PN ---
PROGRESS NOTE CHIEF COMPLAINT: Failure to thrive. HISTORY OF PRESENT ILLNESS: This is a gentleman who is doing well. He has had no fever, chills. It is unclear as to why he would have had 2 positive blood cultures. PHYSICAL EXAMINATION: CHEST: Clear. CARDIAC: Normal. ABDOMEN: Soft, nontender. IMPRESSION: General debility. PLAN: Social Work and family is looking for discharge location. Remains on basic care. MMODL / IJN: [id number] /
[2023-01-19] MEDS: PENICILLIN G POTASSIUM 2,500,000 UNIT in DEXTROSE 5% IN WATER 100 ML IVPB SCH ×14 (01:13→23:52)
[2023-01-19 06:14] LABS: Glucose,Whole Blood 131 mg/dL (70-110)
[2023-01-19] MEDS: metFORMIN 500 MG TAB PO SCH ×2 (06:34→18:29)
[2023-01-19] MEDS: PANTOPRAZOLE 40 MG TABLET PO SCH (06:34)
[2023-01-19] MEDS: INSULIN DETEMIR (LEVEMIR) 100 UNIT/ML SYR SQ SCH (08:36)
[2023-01-19] MEDS: INSULIN ASPART (NovoLOG) 100 UNIT/ML VIAL SQ SCH ×3 (08:36→18:29)
[2023-01-19] MEDS: SPIRONOLACTONE 25 MG TAB PO SCH (08:37)
[2023-01-19] MEDS: NYSTATIN 100,000 UNIT/GM POWD 15 GM TOPICAL SCH ×2 (08:37→20:22)
[2023-01-19] MEDS: TAMSULOSIN 0.4 MG CAP.ER.24H PO SCH (08:37)
[2023-01-19] MEDS: LINAGLIPTIN 5 MG TABLET PO SCH (08:37)
[2023-01-19] MEDS: METOPROLOL SUCCINATE (ER) 100 MG TAB.ER.24H PO SCH ×2 (08:37→20:22)
[2023-01-19] MEDS: hydrOXYzine pamoate 25 MG CAP PO SCH ×3 (08:37→20:21)
[2023-01-19 11:45] LABS: Glucose,Whole Blood 146 mg/dL (70-110)
[2023-01-19 17:20] LABS: Glucose,Whole Blood 114 mg/dL (70-110)
[2023-01-19 20:32] LABS: Glucose,Whole Blood 111 mg/dL (70-110)
[2023-01-20] MEDS: PENICILLIN G POTASSIUM 2,500,000 UNIT in DEXTROSE 5% IN WATER 100 ML IVPB SCH ×10 (03:43→20:38)
[2023-01-20] MEDS: PANTOPRAZOLE 40 MG TABLET PO SCH (06:05)
[2023-01-20 06:09] LABS: Glucose,Whole Blood 111 mg/dL (70-110)
[2023-01-20] MEDS: hydrOXYzine pamoate 25 MG CAP PO SCH ×3 (08:18→20:38)
[2023-01-20] MEDS: INSULIN DETEMIR (LEVEMIR) 100 UNIT/ML SYR SQ SCH (08:18)
[2023-01-20] MEDS: INSULIN ASPART (NovoLOG) 100 UNIT/ML VIAL SQ SCH ×2 (08:18→17:37)
[2023-01-20] MEDS: LOSARTAN 50 MG TAB PO SCH (08:18)
[2023-01-20] MEDS: LINAGLIPTIN 5 MG TABLET PO SCH (08:18)
[2023-01-20] MEDS: TAMSULOSIN 0.4 MG CAP.ER.24H PO SCH (08:19)
[2023-01-20] MEDS: SPIRONOLACTONE 25 MG TAB PO SCH (08:19)
[2023-01-20] MEDS: metFORMIN 500 MG TAB PO SCH ×2 (08:19→17:37)
[2023-01-20] MEDS: METOPROLOL SUCCINATE (ER) 100 MG TAB.ER.24H PO SCH ×2 (08:19→20:38)
[2023-01-20] MEDS: NYSTATIN 100,000 UNIT/GM POWD 15 GM TOPICAL SCH ×2 (08:22→20:39)
[2023-01-20 12:10] LABS: Glucose,Whole Blood 111 mg/dL (70-110)
[2023-01-20 17:01] LABS: Glucose,Whole Blood 188 mg/dL (70-110)
--- NOTE | 2023-01-20 20:01 | PN ---
PROGRESS NOTE DATE OF SERVICE: 01/19/2023 CHIEF COMPLAINT: General debility, failure to thrive with uncontrolled diabetes, and hypertension. HISTORY OF PRESENT ILLNESS: This gentleman is doing well, but has noted his blood pressure at times is quite high. He is still awaiting placement in some type of facility such as assisted living. He can no longer manage, falls and cannot control his diabetes. PHYSICAL EXAMINATION: CHEST: Clear. CARDIAC: Normal. ABDOMEN: Soft, nontender. IMPRESSION: 1. General debility and failure to thrive. 2. Frequent falls. 3. Inability to manage his insulin dependent diabetes. 4. Hypertension. PLAN: Add Cozaar 100 mg once a day. MMODL / IJN: [id number] /
[2023-01-20 20:17] LABS: Glucose,Whole Blood 74 mg/dL (70-110)
--- NOTE | 2023-01-20 20:22 | PN ---
PROGRESS NOTE DATE OF SERVICE: 01/20/2023 CHIEF COMPLAINT: Weakness, general debility, and failure to manage his insulin management. HISTORY OF PRESENT ILLNESS: This gentleman is doing well and efforts being made to control his diabetes and blood pressure while looking for assisted living at discharge. MMODL / IJN: [id number] /
[2023-01-21 02:04] LABS: Glucose,Whole Blood 114 mg/dL (70-110)
[2023-01-21] MEDS: PENICILLIN G POTASSIUM 2,500,000 UNIT in DEXTROSE 5% IN WATER 100 ML IVPB SCH ×8 (04:10→16:06)
[2023-01-21 06:04] LABS: Glucose,Whole Blood 121 mg/dL (70-110)
[2023-01-21] MEDS: metFORMIN 500 MG TAB PO SCH ×2 (06:12→17:50)
[2023-01-21] MEDS: PANTOPRAZOLE 40 MG TABLET PO SCH (06:13)
[2023-01-21] MEDS: METOPROLOL SUCCINATE (ER) 100 MG TAB.ER.24H PO SCH ×2 (08:19→20:59)
[2023-01-21] MEDS: INSULIN DETEMIR (LEVEMIR) 100 UNIT/ML SYR SQ SCH (08:19)
[2023-01-21] MEDS: LOSARTAN 50 MG TAB PO SCH (08:20)
[2023-01-21] MEDS: LINAGLIPTIN 5 MG TABLET PO SCH (08:20)
[2023-01-21] MEDS: hydrOXYzine pamoate 25 MG CAP PO SCH ×3 (08:20→20:59)
[2023-01-21] MEDS: TAMSULOSIN 0.4 MG CAP.ER.24H PO SCH (08:20)
[2023-01-21] MEDS: SPIRONOLACTONE 25 MG TAB PO SCH (08:20)
[2023-01-21] MEDS: INSULIN ASPART (NovoLOG) 100 UNIT/ML VIAL SQ SCH ×2 (09:59→17:51)
[2023-01-21] MEDS: NYSTATIN 100,000 UNIT/GM POWD 15 GM TOPICAL SCH ×2 (11:17→20:59)
[2023-01-21 13:02] LABS: Glucose,Whole Blood 179 mg/dL (70-110)
[2023-01-21 15:14] VITALS: BMI 29.1
[2023-01-21 17:58] LABS: Glucose,Whole Blood 138 mg/dL (70-110)
[2023-01-21 20:06] LABS: Glucose,Whole Blood 111 mg/dL (70-110)
--- NOTE | 2023-01-21 21:25 | PN ---
PROGRESS NOTE DATE OF SERVICE: 01/21/2023 CHIEF COMPLAINT: General debility and failure to thrive. HISTORY OF PRESENT ILLNESS: This gentleman is stable and there has been no interval change. His blood pressure has improved and his blood sugars are also better. He will have to go to an assisted living situation and that he cannot function at home alone anymore where he has had several falls and could not manage his diabetes. PHYSICAL EXAMINATION: GENERAL: He is awake and alert. CHEST: Clear. CARDIAC: Normal. ABDOMEN: Soft, nontender. IMPRESSION: 1. General debility and failure to thrive. 2. Hypertension. 3. Diabetes. PLAN: 1. Stop IV penicillin. 2. Await for discharge plan. MMODL / IJN: [id number] /
[2023-01-22 06:11] LABS: Glucose,Whole Blood 190 mg/dL (70-110)
[2023-01-22] MEDS: metFORMIN 500 MG TAB PO SCH (06:11)
[2023-01-22] MEDS: INSULIN DETEMIR (LEVEMIR) 100 UNIT/ML SYR SQ SCH (06:11)
[2023-01-22] MEDS: PANTOPRAZOLE 40 MG TABLET PO SCH (06:11)
[2023-01-22] MEDS: INSULIN ASPART (NovoLOG) 100 UNIT/ML VIAL SQ SCH (08:26)
[2023-01-22] MEDS: LINAGLIPTIN 5 MG TABLET PO SCH (08:27)
[2023-01-22] MEDS: METOPROLOL SUCCINATE (ER) 100 MG TAB.ER.24H PO SCH (08:27)
[2023-01-22] MEDS: hydrOXYzine pamoate 25 MG CAP PO SCH (08:27)
[2023-01-22] MEDS: LOSARTAN 50 MG TAB PO SCH (08:30)
[2023-01-22] MEDS: SPIRONOLACTONE 25 MG TAB PO SCH (08:30)
[2023-01-22] MEDS: NYSTATIN 100,000 UNIT/GM POWD 15 GM TOPICAL SCH (08:30)
[2023-01-22] MEDS: TAMSULOSIN 0.4 MG CAP.ER.24H PO SCH (08:30)
[2023-01-22 11:54] LABS: Glucose,Whole Blood 132 mg/dL (70-110)
[2023-01-22 13:37] VITALS: BP 161/70; PULSE 75; RESP 14; TEMP 97.9
--- NOTE | 2023-01-22 15:02 | P.DS ---
Providers Date of admission: 01/14/23 19:17 Attending physician: Balaji Fountain Primary care physician: Balaji Fountain - Discharge Diagnosis(es) (1) Generalized weakness Current Visit: Yes Status: Acute (2) Multiple falls Current Visit: Yes Status: Acute (3) Acute kidney injury Current Visit: No Status: Acute Hospital Course: Patient admitted from home setting with multiple falls and increasing weakness. At admission was experiencing unstable blood pressure and blood glucose levels. In the ER blood cultures were obtained, and contaminated cultures were found, the IV penicillin was discontinued and no further antibiotics were ordered. Assessment: On exam it is related Awake and alert Chest: clear Heart : no new murmurs Abd: soft and non tender Ext: without edema noted Pertinent Studies: C-Xray without acute pneumonia Patient Condition at Discharge: Poor Plan - Discharge Summary New Discharge Prescriptions: New Losartan [Cozaar] 100 mg PO DAILY #30 tab Continue Metoprolol Succinate [Toprol XL] 100 mg PO BID metFORMIN HCL 500 mg PO BID Omeprazole 40 mg PO DAILY Spironolactone [Aldactone] 25 mg PO DAILY #0 tablet hydrOXYzine pamoate [Vistaril] 25 mg PO TID Tamsulosin HCl [Flomax] 0.8 mg PO DAILY Linagliptin [Tradjenta] 5 mg PO DAILY INSULIN ASPART (NovoLOG) [NovoLOG (formulary)] 12 unit SQ AC-BRKFST INSULIN ASPART (NovoLOG) [NovoLOG (formulary)] 6 unit SQ AC-SUPPER Insulin Glargine [Lantus Vial] 10 unit SQ DAILY@0700 Discontinued Hydrocortisone Cream [Hydrocortisone 2.5% Cream] 1 applic TOPICAL QID PRN PRN Reason: irritation Discharge Medication List Metoprolol Succinate [Toprol XL] 100 mg PO BID 12/30/19 [History] Omeprazole 40 mg PO DAILY 12/30/19 [History] metFORMIN HCL 500 mg PO BID 12/30/19 [History] Spironolactone [Aldactone] 25 mg PO DAILY #0 tablet 01/01/20 [Rx] INSULIN ASPART (NovoLOG) [NovoLOG (formulary)] 6 unit SQ AC-SUPPER 01/11/23 [History] INSULIN ASPART (NovoLOG) [NovoLOG (formulary)] 12 unit SQ AC-BRKFST 01/11/23 [History] Linagliptin [Tradjenta] 5 mg PO DAILY 01/11/23 [History] Tamsulosin HCl [Flomax] 0.8 mg PO DAILY 01/11/23 [History] hydrOXYzine pamoate [Vistaril] 25 mg PO TID 01/11/23 [History] Insulin Glargine [Lantus Vial] 10 unit SQ DAILY@0700 01/14/23 [History] Losartan [Cozaar] 100 mg PO DAILY #30 tab 01/22/23 [Rx] Discharge Disposition: TRANSFER TO SNF/ECF
--- NOTE | 2023-01-22 17:01 | DS ---
DISCHARGE SUMMARY CHIEF COMPLAINT: Frequent falling, general debility, and failure to thrive with uncontrolled diabetes. HISTORY OF PRESENT ILLNESS AND PHYSICAL EXAMINATION: Details of this man's history and physical can be found in the initial workup. LABORATORY STUDIES: While he is in the hospital, he had laboratory studies, details of which can be found in the laboratory section of his chart. COURSE IN THE HOSPITAL: After admission, he was placed on bedrest, started intravenous fluids and frequent monitoring of his blood sugars and blood pressure. Blood pressure did rise. Sugars remained fairly stable. The patient was debilitated enough that it was not felt safe for him to live independently any longer. It was hope that he would be able to be placed in an assisted living environment and he refused to go to a [facility]. However, he was encouraged to go to the [facility] for rehab and then possibly on to another facility at a later date. He was to be transferred to [facility] on the . FINAL DIAGNOSES: 1. Frequent falling. 2. General debility and weakness. 3. Uncontrolled insulin-dependent diabetes mellitus. 4. Mental debility. OPERATIONS: None. CONSULTATIONS: None. CONDITION: He is improved. MMODL / IJN: [id number] /
== END 2023-01-22 16:30 ==
LOC: EC 15:25 → 6NMEDSUR 19:17
PROVIDERS: ADMIT Family Medicine; ATTEND Family Medicine
DX: E11.649 Type 2 diabetes mellitus with hypoglycemia without coma (principal); R29.6 Repeated falls; R54 Age-related physical debility; R62.7 Adult failure to thrive; N17.9 Acute kidney failure, unspecified; I10 Essential (primary) hypertension; I48.91 Unspecified atrial fibrillation; G47.33 Obstructive sleep apnea (adult) (pediatric); Z79.4 Long term (current) use of insulin; Z79.84 Long term (current) use of oral hypoglycemic drugs; Z79.899 Other long term (current) drug therapy; Z88.5 Allergy status to narcotic agent
CPT/HCPCS: 96365; 96366 ×3; 96372 ×8; 96375; 99285; 36415; 93005; 97530 ×8; 97162; 97166; 80053; 83605; 83735; 84443; 84484; 85025; 85610; 85730; 81001; 87040; 87077; 87186; 71046; G0378 ×9; J0360; J2540 ×5

== ENCOUNTER 2023-03-13 13:03 | Inpatient (IN) | payer MEDICARE, OTHER ==
[2023-03-13] MEDS ORDERED: SODIUM CHLORIDE 0.9% 1,000 ML IV STA (13:07)
--- NOTE | 2023-03-13 13:10 | ED ---
General Adult HPI - General Stated complaint: fall Time Seen by Provider: 03/13/23 13:04 Source: patient, RN notes reviewed, old records reviewed - History of Present Illness Initial comments: This is a 72-year-old male who presents emergency department. Patient was at a intermediate and was sent home on the first. Patient was in the bathroom and fell once he was helped to his feet again from with family and then fell a seco nd time. Patient denies any injury. Patient denies headache patient with any neck pain patient denies numbness weakness. Patient denies any back pain chest pain or abdominal pain. Patient denies any extremity pain. Patient's only complaint is his overall very weak and is unable to stand on his own admitted he isn't feeling that he will fall again. Patient denies any difficulty breathing shortest breath per patient denies any recent fever chills or cough. - Related Data Home Medications Medication Instructions Recorded Confirmed Metoprolol Succinate [Toprol XL] 100 mg PO Q12H 12/30/19 03/13/23 metFORMIN HCL 500 mg PO BID 12/30/19 03/13/23 Linagliptin [Tradjenta] 5 mg PO DAILY 01/11/23 03/13/23 Tamsulosin HCl [Flomax] 0.8 mg PO DAILY 01/11/23 03/13/23 hydrOXYzine pamoate [Vistaril] 25 mg PO TID 01/11/23 03/13/23 Insulin Glargine,Hum.rec.anlog 10 units SQ DAILY 03/13/23 03/13/23 [Lantus Solostar Pen] Insulin Lispro [humaLOG Kwikpen] 6 unit SQ AC-SUPPER 03/13/23 03/13/23 Insulin Lispro [humaLOG Kwikpen] 12 units SQ AC-BRKFST 03/13/23 03/13/23 Losartan Potassium 100 mg PO DAILY 03/13/23 03/13/23 Omeprazole Magnesium [PriLOSEC OTC] 40 mg PO DAILY 03/13/23 03/13/23 Previous Rx's Medication Instructions Recorded Spironolactone [Aldactone] 25 mg PO DAILY #0 tablet 01/01/20 Allergies Allergy/AdvReac Type Severity Reaction Status Date / Time codeine AdvReac Severe Verified 03/13/23 14:21 insomnia Review of Systems ROS Statement: Those systems with pertinent positive or pertinent negative responses have been documented in the HPI. ROS Other: All systems not noted in ROS Statement are negative. Past Medical History Past Medical History: Atrial Fibrillation, Heart Failure, Diabetes Mellitus, Hearing Disorder / Deafness, Hypertension, Renal Disease, Sleep Apnea/CPAP/BIPAP Additional Past Medical History / Comment(s): IDDM type II, [place] bilaterally- wears aide History of Any Multi-Drug Resistant Organisms: None Reported Past Surgical History: Ablation, Heart Catheterization, Pacemaker Additional Past Surgical History / Comment(s): R eye surgery/lens implant-pt believes d/t infection, colonoscopy. Pacemaker d/t low heart rate per pt. Past Anesthesia/Blood Transfusion Reactions: No Reported Reaction Type of Cardiac Device: Unknown Device Placement Date:: unknown Past Psychological History: No Psychological Hx Reported Smoking Status: Former smoker Past Alcohol Use History: None Reported Past Drug Use History: None Reported - Past Family History Father Family Medical History: Myocardial Infarction ([place]) Additional Family Medical History / Comment(s): Father of a [place] but pt cannot recall at what age. Mother Family Medical History: Cancer Additional Family Medical History / Comment(s): Pt cannot recall type of cancer. General Exam - General Exam Comments Initial Comments: GENERAL: Patient is well-developed and well-nourished. Patient is nontoxic and well- hydrated and is in no acute distress. ENT: Neck is soft and supple. No significant lymphadenopathy is noted. Oropharynx is clear. Moist mucous membranes. Neck has full range of motion without eliciting any pain. EYES: The sclera were anicteric and conjunctiva were pink and moist. Extraocular movements were intact and pupils were equal round and reactive to light. Eyeli ds were unremarkable. PULMONARY: Unlabored respirations. Good breath sounds bilaterally. No audible rales rhonchi or wheezing was noted. CARDIOVASCULAR: Patient is tachycardic at 150 beats a minute ABDOMEN: Soft and nontender with normal bowel sounds. SKIN: Skin is clear with no lesions or rashes and otherwise unremarkable. NEUROLOGIC: Patient is alert and oriented x3. Cranial nerves II through XII are grossly intact. Motor and sensory are also intact. Normal speech, volume and content. Symmetrical smile. MUSCULOSKELETAL: Normal extremities with adequate strength and full range of motion. No lower extremity swelling or edema. No calf tenderness. LYMPHATICS: No significant lymphadenopathy is noted PSYCHIATRIC: Normal psychiatric evaluation. Course Vital Signs 03/13/23 03/13/23 03/13/23 13:26 14:42 14:48 Temperature 97.6 F Pulse Rate 57 L 118 H 122 H Respiratory 16 20 20 Rate Blood Pressure 99/60 123/72 117/67 O2 Sat by Pulse 88 L 98 Oximetry 03/13/23 16:19 Temperature Pulse Rate 94 Respiratory 18 Rate Blood Pressure 125/94 O2 Sat by Pulse 98 Oximetry Medical Decision Making - Medical Decision Making EKG ventricular myself. EKG shows atrial fibrillation with rapid ventricular response at 157 bpm QRS is 101 Q-T intervals 275 QTC is 363. Patient's EKG shows no ST segment elevation or depression. Patient's ideal body weight is 78 kg Was pt. sent in by a medical professional or institution (MARIA ISABEL Prabhakar, FISH BAIT PROCESSING SUPERVISOR, urgent care, hospital, or intermediate...) When possible be specific @ -No Did you speak to anyone other than the patient for history (EMS, parent, family, police, friend...)? What history was obtained from this source @ -No Did you review nursing and triage notes (agree or disagree)? Why? @ -I reviewed and agree with nursing and triage notes Were old charts reviewed (outside hosp., previous admission, EMS record, old EKG, old radiological studies, urgent care reports/EKG's, intermediate records)? Report findings @ -In prior charts of prior labwork on this patient Differential Diagnosis (chest pain, altered mental status, abdominal pain women, abdominal pain men, vaginal bleeding, weakness, fever, dyspnea, syncope, he adache, dizziness, GI bleed, back pain, seizure, CVA, palpatations, mental health, musculoskeletal)? @ -Differential Weakness: Hypoglycemia, shock, sepsis, hyponatremia, anemia, infection, [place], ETOH, adverse medicine reaction, overdose, stroke, this is not meant to be an all-inclusive list. EKG interpreted by me (3pts min.). @ -As above X-rays interpreted by me (1pt min.). @ -Chest x-ray shows no acute abnormality CT interpreted by me (1pt min.). @ -None done U/S interpreted by me (1pt. min.). @ -None done What testing was considered but not performed or refused? (CT, X-rays, U/S, labs)? Why? @ -None What meds were considered but not given or refused? Why? @ -None Did you discuss the management of the patient with other professionals (professionals i.e. , PA, FISH BAIT PROCESSING SUPERVISOR, lab, RT, psych nurse, transition social worker, plant engineering supervisor, teacher, intelligence officer, rn case manager hospice)? Give summary @ -Spoke with Dr. Fountain he agreed to admit the patient Was smoking cessation discussed for >3mins.? @ -No Was critical care preformed (if so, how long)? @ -35 minutes Were there social determinants of health that impacted care today? How? (Ashok elessness, low income, unemployed, alcoholism, drug addiction, transportation, low edu. Level, literacy, decrease access to med. care, custodial, rehab)? @ -No Was there de-escalation of care discussed even if they declined (Discuss DNR or withdrawal of care, Hospice)? DNR status @ -No What co-morbidities impacted this encounter? (DM, HTN, Smoking, COPD, CAD, Cancer, CVA, ARF, Chemo, Hep., AIDS, mental health diagnosis, sleep apnea, morbid obesity)? @ -None Was patient admitted / discharged? Hospital course, mention meds given and route, prescriptions, significant lab abnormalities, going to OR and other pertinent info. @ -Patient has a urinary tract infection is extremely weak has significantly elevated white count. Patient also is acidotic and septic so patient was given 2 g Rocephin and will be admitted to Dr. Fountain. Patient also received 2 L of IV fluids Undiagnosed new problem with uncertain prognosis? @ -No Drug Therapy requiring intensive monitoring for toxicity (Heparin, Nitro, Insulin, Cardizem)? @ -No Were any procedures done? @ -No Diagnosis/symptom? @ -Urinary tract infection Acute, or Chronic, or Acute on Chronic? @ -Acute Uncomplicated (without systemic symptoms) or Complicated (systemic symptoms)? @ -Complicated Side effects of treatment? @ -No Exacerbation, Progression, or Severe Exacerbation? @ -No Poses a threat to life or bodily function? How? (Chest pain, [place], [place], pneumonia, PE, COPD, DKA, ARF, appy, cholecystitis, CVA, Diverticulitis, Homicidal, Suicidal, threat to staff... and all critical care pts) @ -Yes this can lead to sepsis and end organ dysfunction Diagnosis/symptom? @ -Sepsis Acute, or Chronic, or Acute on Chronic? @ -Acute Uncomplicated (without systemic symptoms) or Complicated (systemic symptoms)? @ -Complicated Side effects of treatment? @ -none Exacerbation, Progression, or Severe Exacerbation] @ -no Poses a threat to life or bodily function? @ -This can directly lead to end organ dysfunction Diagnosis/symptom? @ -Acute renal failure Acute, or Chronic, or Acute on Chronic? @ -Acute Uncomplicated (without systemic symptoms) or Complicated (systemic symptoms)? @ -Complicated Side effects of treatment? @ -none Exacerbation, Progression, or Severe Exacerbation] @ -no Poses a threat to life or bodily function? @ -Yes this can lead to electrolyte abnormalities or arrhythmias and Diagnosis/symptom? @ -A. fib with rapid ventricular response Acute, or Chronic, or Acute on Chronic? @ -Acute Uncomplicated (without systemic symptoms) or Complicated (systemic symptoms)? @ -Complicated Side effects of treatment? @ -none Exacerbation, Progression, or Severe Exacerbation] @ -no Poses a threat to life or bodily function? @ -no - Lab Data Result diagrams: 03/13/23 14:37 03/13/23 14:37 Lab Results 03/13/23 03/13/23 03/13/23 Range/Units 14:37 14:37 14:37 WBC 21.9 H (3.8-10.6) k/uL RBC 5.10 (4.30-5.90) m/uL Hgb 16.4 (13.0-17.5) gm/dL Hct 49.3 (39.0-53.0) % MCV 96.7 (80.0-100.0) fL MCH 32.1 (25.0-35.0) pg MCHC 33.2 (31.0-37.0) g/dL RDW 13.0 (11.5-15.5) % Plt Count 200 (150-450) k/uL MPV 9.2 Neutrophils % 92 % Lymphocytes % 2 % Monocytes % 5 % Eosinophils % 0 % Basophils % 0 % Neutrophils # 20.0 H (1.3-7.7) k/uL Lymphocytes # 0.5 L (1.0-4.8) k/uL Monocytes # 1.0 (0-1.0) k/uL Eosinophils # 0.0 (0-0.7) k/uL Basophils # 0.0 (0-0.2) k/uL PT 11.4 (10.0-12.5) sec INR 1.1 (<1.2) APTT 27.8 (22.0-30.0) sec VBG pH (7.31-7.41) VBG pCO2 (37-51) mmHg VBG HCO3 (24-28) mmol/L Sodium (137-145) mmol/L Potassium (3.5-5.1) mmol/L Chloride (98-107) mmol/L Carbon Dioxide (22-30) mmol/L Anion Gap mmol/L BUN (9-20) mg/dL Creatinine (0.66-1.25) mg/dL Est GFR (CKD-EPI)AfAm (>60 ml/min/1.73 sqM) Est GFR (CKD-EPI)NonAf (>60 ml/min/1.73 sqM) Glucose (74-99) mg/dL Lactic Ac Sepsis Rflx Plasma Lactic Acid Russell (0.7-2.0) mmol/L Calcium (8.4-10.2) mg/dL Magnesium (1.6-2.3) mg/dL Total Bilirubin (0.2-1.3) mg/dL AST (17-59) U/L ALT (4-49) U/L Alkaline Phosphatase (38-126) U/L Troponin I (0.000-0.034) ng/mL Total Protein (6.3-8.2) g/dL Albumin (3.5-5.0) g/dL Urine Color Light Yellow Urine Appearance Cloudy (Clear) Urine pH 5.5 (5.0-8.0) Ur Specific Serena 1.013 (1.001-1.035) Urine Protein 2+ H (Negative) Urine Glucose (UA) 3+ H (Negative) Urine Ketones 1+ H (Negative) Urine Blood Moderate H (Negative) Urine Nitrite Negative (Negative) Urine Bilirubin Negative (Negative) Urine Urobilinogen <2.0 (<2.0) mg/dL Ur Leukocyte Esterase Large H (Negative) Urine RBC 6 H (0-5) /hpf Urine WBC 84 H (0-5) /hpf Urine WBC Clumps Moderate H (None) /hpf Ur Squamous Epith Cells 3 (0-4) /hpf Urine Bacteria Moderate H (None) /hpf Urine Mucus Rare H (None) /hpf 03/13/23 03/13/23 03/13/23 Range/Units 14:37 14:37 14:37 WBC (3.8-10.6) k/uL RBC (4.30-5.90) m/uL Hgb (13.0-17.5) gm/dL Hct (39.0-53.0) % MCV (80.0-100.0) fL MCH (25.0-35.0) pg MCHC (31.0-37.0) g/dL RDW (11.5-15.5) % Plt Count (150-450) k/uL MPV Neutrophils % % Lymphocytes % % Monocytes % % Eosinophils % % Basophils % % Neutrophils # (1.3-7.7) k/uL Lymphocytes # (1.0-4.8) k/uL Monocytes # (0-1.0) k/uL Eosinophils # (0-0.7) k/uL Basophils # (0-0.2) k/uL PT (10.0-12.5) sec INR (<1.2) APTT (22.0-30.0) sec VBG pH (7.31-7.41) VBG pCO2 (37-51) mmHg VBG HCO3 (24-28) mmol/L Sodium 138 (137-145) mmol/L Potassium 5.8 H (3.5-5.1) mmol/L Chloride 104 (98-107) mmol/L Carbon Dioxide 8 L* (22-30) mmol/L Anion Gap 26 mmol/L BUN 124 H* (9-20) mg/dL Creatinine 3.80 H (0.66-1.25) mg/dL Est GFR (CKD-EPI)AfAm 17 (>60 ml/min/1.73 sqM) Est GFR (CKD-EPI)NonAf 15 (>60 ml/min/1.73 sqM) Glucose 388 H (74-99) mg/dL Lactic Ac Sepsis Rflx Plasma Lactic Acid Russell 2.3 H* (0.7-2.0) mmol/L Calcium 9.7 (8.4-10.2) mg/dL Magnesium 2.2 (1.6-2.3) mg/dL Total Bilirubin 0.9 (0.2-1.3) mg/dL AST 22 (17-59) U/L ALT 23 (4-49) U/L Alkaline Phosphatase 186 H (38-126) U/L Troponin I 0.034 (0.000-0.034) ng/mL Total Protein 8.3 H (6.3-8.2) g/dL Albumin 4.3 (3.5-5.0) g/dL Urine Color Urine Appearance (Clear) Urine pH (5.0-8.0) Ur Specific Serena (1.001-1.035) Urine Protein (Negative) Urine Glucose (UA) (Negative) Urine Ketones (Negative) Urine Blood (Negative) Urine Nitrite (Negative) Urine Bilirubin (Negative) Urine Urobilinogen (<2.0) mg/dL Ur Leukocyte Esterase (Negative) Urine RBC (0-5) /hpf Urine WBC (0-5) /hpf Urine WBC Clumps (None) /hpf Ur Squamous Epith Cells (0-4) /hpf Urine Bacteria (None) /hpf Urine Mucus (None) /hpf 03/13/23 03/13/23 Range/Units 15:14 16:45 WBC (3.8-10.6) k/uL RBC (4.30-5.90) m/uL Hgb (13.0-17.5) gm/dL Hct (39.0-53.0) % MCV (80.0-100.0) fL MCH (25.0-35.0) pg MCHC (31.0-37.0) g/dL RDW (11.5-15.5) % Plt Count (150-450) k/uL MPV Neutrophils % % Lymphocytes % % Monocytes % % Eosinophils % % Basophils % % Neutrophils # (1.3-7.7) k/uL Lymphocytes # (1.0-4.8) k/uL Monocytes # (0-1.0) k/uL Eosinophils # (0-0.7) k/uL Basophils # (0-0.2) k/uL PT (10.0-12.5) sec INR (<1.2) APTT (22.0-30.0) sec VBG pH 7.25 L (7.31-7.41) VBG pCO2 26 L (37-51) mmHg VBG HCO3 11 L (24-28) mmol/L Sodium (137-145) mmol/L Potassium (3.5-5.1) mmol/L Chloride (98-107) mmol/L Carbon Dioxide (22-30) mmol/L Anion Gap mmol/L BUN (9-20) mg/dL Creatinine (0.66-1.25) mg/dL Est GFR (CKD-EPI)AfAm (>60 ml/min/1.73 sqM) Est GFR (CKD-EPI)NonAf (>60 ml/min/1.73 sqM) Glucose (74-99) mg/dL Lactic Ac Sepsis Rflx Y Plasma Lactic Acid Russell (0.7-2.0) mmol/L Calcium (8.4-10.2) mg/dL Magnesium (1.6-2.3) mg/dL Total Bilirubin (0.2-1.3) mg/dL AST (17-59) U/L ALT (4-49) U/L Alkaline Phosphatase (38-126) U/L Troponin I (0.000-0.034) ng/mL Total Protein (6.3-8.2) g/dL Albumin (3.5-5.0) g/dL Urine Color Urine Appearance (Clear) Urine pH (5.0-8.0) Ur Specific Serena (1.001-1.035) Urine Protein (Negative) Urine Glucose (UA) (Negative) Urine Ketones (Negative) Urine Blood (Negative) Urine Nitrite (Negative) Urine Bilirubin (Negative) Urine Urobilinogen (<2.0) mg/dL Ur Leukocyte Esterase (Negative) Urine RBC (0-5) /hpf Urine WBC (0-5) /hpf Urine WBC Clumps (None) /hpf Ur Squamous Epith Cells (0-4) /hpf Urine Bacteria (None) /hpf Urine Mucus (None) /hpf Disposition Clinical Impression: Fall, Sepsis, Urinary tract infection, Acute renal failure, Atrial fibrillation with rapid ventricular response Disposition: ADMITTED IP TO THIS HOSP Referrals: Balaji Fountain MD [Primary Care Provider] - 1-2 days Time of Disposition: 17:58
[2023-03-13] MEDS ORDERED: DILTIAZEM DRIP BOLUS FROM BAG 1 MG SOLN IV ONE (14:17)
[2023-03-13] MEDS: DILTIAZEM 125 MG in SODIUM CHLORIDE 0.9% 100 ML IV SCH (14:29)
[2023-03-13 14:46] LABS: Basophils % (A) 0 %; Eosinophils % (A) 0 %; HCT 49.3 % (39.0-53.0); HGB 16.4 gm/dL (13.0-17.5); Lymphocytes # (A) 0.5 k/uL (1.0-4.8); Lymphocytes % (A) 2 %; MCH 32.1 pg (25.0-35.0); MCHC 33.2 g/dL (31.0-37.0); MCV 96.7 fL (80.0-100.0); Mean Platelet Volume 9.2; Monocytes % (A) 5 %; Neutrophils % (A) 92 %; Platelet Count 200 k/uL (150-450); WBC 21.9 k/uL (3.8-10.6)
[2023-03-13 14:55] LABS: INR 1.1 (<1.2); Partial Thromboplastin Time 27.8 sec (22.0-30.0); Prothrombin Time 11.4 sec (10.0-12.5)
--- NOTE | 2023-03-13 15:05 | XR ---
EXAMINATION TYPE: XR chest 2V DATE OF EXAM: 03/13/2023 COMPARISON: 01/14/2023 INDICATION: Weakness, fall TECHNIQUE: Frontal and lateral views of the chest are obtained. FINDINGS: The heart size is normal. Pacemaker overlies left chest. The pulmonary vasculature is normal. The lungs are clear. IMPRESSION: 1. No acute pulmonary process.
[2023-03-13 15:11] LABS: ALT 23 U/L (4-49); AST 22 U/L (17-59); African American GFR (CKD) 17 (>60 ml/min/1.73 sqM); Albumin 4.3 g/dL (3.5-5.0); Alkaline Phosphatase 186 U/L (38-126); Anion Gap 26 mmol/L; Calcium 9.7 mg/dL (8.4-10.2); Chloride 104 mmol/L (98-107); Glucose 388 mg/dL (74-99); Magnesium 2.2 mg/dL (1.6-2.3); Non-African American GFR(CKD) 15 (>60 ml/min/1.73 sqM); Potassium 5.8 mmol/L (3.5-5.1); Sodium 138 mmol/L (137-145); Total Bilirubin 0.9 mg/dL (0.2-1.3); Total Protein 8.3 g/dL (6.3-8.2)
[2023-03-13 15:18] LABS: Carbon Dioxide 8 mmol/L (22-30)
[2023-03-13 15:20] LABS: Blood Urea Nitrogen 124 mg/dL (9-20)
[2023-03-13] MEDS ORDERED: SODIUM CHLORIDE 0.9% 1,000 ML IV ONE ×2 (16:15→17:59)
[2023-03-13 16:57] LABS: VBG PH 7.25 (7.31-7.41)
[2023-03-13 17:20] LABS: Appearance,Urine Cloudy (Clear); Bacteria,Urine Moderate /hpf; Bilirubin,Urine Negative (Negative); Blood,Urine Moderate (Negative); Color,Urine Light Yellow; Glucose,Urine (UA) 3+ (Negative); Ketones,Urine 1+ (Negative); Leukocyte Esterase,Urine Large (Negative); Mucus,Urine Rare /hpf; Nitrite,Urine Negative (Negative); PH, Urine 5.5 (5.0-8.0); Protein,Urine 2+ (Negative); RBC,Urine 6 /hpf (0-5); Specific Gravity,Urine 1.013 (1.001-1.035); Squamous Epithelial Cell,Urine 3 /hpf (0-4); Urobilinogen,Urine <2.0 mg/dL (<2.0); WBC,Urine 84 /hpf (0-5)
[2023-03-13] MEDS ORDERED: cefTRIAXone IN SWFI 1,000 MG/10 ML SYRINGE IVP STA (17:51)
[2023-03-13] MEDS ORDERED: HEPARIN SODIUM 1,000 UN/ML (10ML VL) IV ONE (18:01)
[2023-03-13] MEDS: HEPARIN SOD,PORK IN 0.45% NACL 25,000 UNIT in 0.45% NACL 1 250ML.BAG IV SCH (19:15)
[2023-03-14] MEDS: HEPARIN SODIUM 1,000 UN/ML (10ML VL) IV PRN ×2 (03:25→10:46)
[2023-03-14] MEDS ORDERED: INFLUENZA VACC HIGH-DOSE (65+) 240 MCG/0.7 ML SYRINGE IM ONE (06:00)
[2023-03-14] MEDS ORDERED: PNEUMOCOCCAL VACC-PREVNAR-20 0.5 ML SYR IM ONE (06:00)
[2023-03-14] MEDS ORDERED: DILTIAZEM DRIP BOLUS FROM BAG 1 MG SOLN IV ONE (06:45)
[2023-03-14 13:20] LABS: Glucose,Whole Blood 298 mg/dL (70-110)
[2023-03-14 16:31] LABS: Glucose,Whole Blood 278 mg/dL (70-110)
[2023-03-14] MEDS: INSULIN DETEMIR (LEVEMIR) 100 UNIT/ML SYR SQ SCH (16:54)
[2023-03-14] MEDS ORDERED: DEXTROSE 5%-0.2% NACL 1,000 ML IV SCH (17:30)
[2023-03-14] MEDS ORDERED: INSULIN ASPART (NovoLOG) 100 UNIT/ML VIAL SQ SCH (17:30)
[2023-03-14] MEDS ORDERED: ZINC OXIDE PASTE (Z-GUARD) 1 APPLIC TOPICAL PRN (18:09)
[2023-03-14] MEDS ORDERED: SODIUM ZIRCONIUM CYCLOSILICATE 10 GM PACKET PO ONE (18:39)
[2023-03-14] MEDS ORDERED: SODIUM BICARB 8.4% 50 ML SYR (1 MEQ/ML) IV STA (18:39)
[2023-03-14] MEDS: DILTIAZEM 125 MG in SODIUM CHLORIDE 0.9% 100 ML IV SCH (18:47)
[2023-03-14] MEDS ORDERED: SODIUM BICARB 8.4% 50 ML SYR (1 MEQ/ML) ONE ×2 (18:58→19:41)
[2023-03-14] MEDS: METOPROLOL SUCCINATE (ER) 100 MG TAB.ER.24H PO SCH (19:43)
[2023-03-14 20:01] LABS: Glucose,Whole Blood 295 mg/dL (70-110)
[2023-03-14] MEDS: DEXTROSE 5% IN WATER 1,000 ML with SODIUM BICARB (1 MEQ/ML) 150 ML IV SCH (20:31)
[2023-03-14] MEDS: HEPARIN SOD,PORK IN 0.45% NACL 25,000 UNIT in 0.45% NACL 1 250ML.BAG IV SCH (20:32)
[2023-03-14] MEDS: NYSTATIN 100,000 UNIT/GM POWD 15 GM TOPICAL SCH (21:24)
[2023-03-15 03:55] LABS: Basophils % (A) 0 %; Eosinophils % (A) 0 %; HCT 38.2 % (39.0-53.0); Lymphocytes # (A) 0.6 k/uL (1.0-4.8); Lymphocytes % (A) 4 %; MCH 31.3 pg (25.0-35.0); MCHC 33.7 g/dL (31.0-37.0); MCV 92.8 fL (80.0-100.0); Mean Platelet Volume 9.2; Monocytes # (A) 0.8 k/uL (0-1.0); Monocytes % (A) 5 %; Neutrophils # (A) 14.5 k/uL (1.3-7.7); Neutrophils % (A) 89 %; Platelet Count 159 k/uL (150-450); RBC 4.11 m/uL (4.30-5.90); RDW 13.6 % (11.5-15.5); WBC 16.4 k/uL (3.8-10.6)
[2023-03-15 04:03] LABS: HGB 12.9 gm/dL (13.0-17.5)
[2023-03-15 04:20] LABS: African American GFR (CKD) 36 (>60 ml/min/1.73 sqM); Anion Gap 14 mmol/L; Blood Urea Nitrogen 72 mg/dL (9-20); Calcium 8.5 mg/dL (8.4-10.2); Carbon Dioxide 20 mmol/L (22-30); Chloride 103 mmol/L (98-107); Glucose 367 mg/dL (74-99); Magnesium 1.7 mg/dL (1.6-2.3); Non-African American GFR(CKD) 31 (>60 ml/min/1.73 sqM); Potassium 3.8 mmol/L (3.5-5.1); Sodium 137 mmol/L (137-145)
[2023-03-15 05:42] LABS: Glucose,Whole Blood 349 mg/dL (70-110)
[2023-03-15] MEDS: DEXTROSE 5% IN WATER 1,000 ML with SODIUM BICARB (1 MEQ/ML) 150 ML IV SCH (06:18)
[2023-03-15] MEDS: DILTIAZEM 125 MG in SODIUM CHLORIDE 0.9% 100 ML IV SCH (06:26)
[2023-03-15] MEDS: INSULIN DETEMIR (LEVEMIR) 100 UNIT/ML SYR SQ SCH (06:30)
[2023-03-15] MEDS ORDERED: INSULIN ASPART (NovoLOG) 100 UNIT/ML VIAL SQ SCH (07:30)
[2023-03-15] MEDS ORDERED: SPIRONOLACTONE 25 MG TAB PO SCH (09:00)
[2023-03-15] MEDS ORDERED: LOSARTAN 50 MG TAB PO SCH (09:00)
[2023-03-15] MEDS: NYSTATIN 100,000 UNIT/GM POWD 15 GM TOPICAL SCH ×3 (09:04→20:57)
[2023-03-15] MEDS: TAMSULOSIN 0.4 MG CAP.ER.24H PO SCH (09:04)
[2023-03-15] MEDS: LINAGLIPTIN 5 MG TABLET PO SCH (09:04)
[2023-03-15] MEDS: PANTOPRAZOLE 40 MG TABLET PO SCH (09:04)
[2023-03-15] MEDS: METOPROLOL SUCCINATE (ER) 100 MG TAB.ER.24H PO SCH ×2 (09:04→20:55)
--- NOTE | 2023-03-15 11:11 | P.NPCON ---
History of Present Illness - Reason for Consult acute renal failure, chronic renal failure - History of Present Illness Reason for consultation: Acute kidney injury on chronic kidney disease History of present illness: Patient is a 72-year-old male seen in renal consultation for acute kidney injury and chronic kidney disease. Patient has chronic kidney disease stage IIIB. Baseline creatinine 1.6-1.7 from October through January 2023. Creatinine this admission was 3.8 and is down to 2.06 today. Patient is not a very reliable historian. Patient states he felt weak and fell and if her came to the hospital. He denies losing consciousness. He is noted to be in A. fib with RVR and is currently maintained on Cardizem drip. Potassium was elevated at 5.8 and he was also quite acidotic with a bicarbonate level of 8. Patient's currently on bicarb drip. Acidosis improved. Potassium level is normal. He was on losartan Aldactone which are both currently held. Patient has long-standing history of diabetes. He denies history of coronary artery disease. Denies hematuria or dysuria. He has a Amaya catheter due to urinary retention and is nonoliguric. Vital signs stable. General: NAD. HEENT: Head exam is unremarkable. LUNGS: No audible rhonchi or wheezes. HEART: Irregular regular rate and rhythm. ABDOMEN: Nontender. EXTREMITITES: No edema. Past Medical History Past Medical History: Atrial Fibrillation, Heart Failure, Diabetes Mellitus, Hearing Disorder / Deafness, Hypertension, Renal Disease, Sleep Apnea/CPAP/BIPAP Additional Past Medical History / Comment(s): IDDM type II, [place] bilaterally- wears aide History of Any Multi-Drug Resistant Organisms: None Reported Past Surgical History: Ablation, Heart Catheterization, Pacemaker Additional Past Surgical History / Comment(s): R eye surgery/lens implant-pt believes d/t infection, colonoscopy. Pacemaker d/t low heart rate per pt. Past Anesthesia/Blood Transfusion Reactions: No Reported Reaction Type of Cardiac Device: Unknown Device Placement Date:: unknown Past Psychological History: No Psychological Hx Reported Additional Psychological History / Comment(s): Pt resides alone in a senior handicap apartment. He has pull cords for emergency. His sister organizes his meds and drives him to [facility]. Smoking Status: Former smoker Past Alcohol Use History: None Reported Additional Past Alcohol Use History / Comment(s): Pt smoked cigars from 1970- 2009. He states he was never a heavy drinker but has not had any alcohol since 2009. Past Drug Use History: None Reported - Past Family History Father Family Medical History: Myocardial Infarction ([place]) Additional Family Medical History / Comment(s): Father of a [place] but pt cannot recall at what age. Mother Family Medical History: Cancer Additional Family Medical History / Comment(s): Pt cannot recall type of cancer. Medications and Allergies Home Medications Medication Instructions Recorded Confirmed Type Metoprolol Succinate [Toprol XL] 100 mg PO Q12H 12/30/19 03/13/23 History metFORMIN HCL 500 mg PO BID 12/30/19 03/13/23 History Spironolactone [Aldactone] 25 mg PO DAILY #0 tablet 01/01/20 03/13/23 Rx Linagliptin [Tradjenta] 5 mg PO DAILY 01/11/23 03/13/23 History Tamsulosin HCl [Flomax] 0.8 mg PO DAILY 01/11/23 03/13/23 History hydrOXYzine pamoate [Vistaril] 25 mg PO TID 01/11/23 03/13/23 History Insulin Glargine,Hum.rec.anlog 10 units SQ DAILY 03/13/23 03/13/23 History [Lantus Solostar Pen] Insulin Lispro [humaLOG Kwikpen] 6 unit SQ AC-SUPPER 03/13/23 03/13/23 History Insulin Lispro [humaLOG Kwikpen] 12 units SQ AC-BRKFST 03/13/23 03/13/23 History Losartan Potassium 100 mg PO DAILY 03/13/23 03/13/23 History Omeprazole Magnesium [PriLOSEC OTC] 40 mg PO DAILY 03/13/23 03/13/23 History Allergies Allergy/AdvReac Type Severity Reaction Status Date / Time codeine AdvReac Severe Verified 03/13/23 14:21 insomnia Physical Exam Vitals: Vital Signs Temp Pulse Pulse Resp BP BP Pulse Ox 03/15/23 10:13 98 03/15/23 09:10 97.6 F 111 H 18 135/68 97 03/15/23 03:48 97.7 F 87 17 148/77 94 L 03/14/23 23:29 98.1 F 107 H 17 135/76 95 03/14/23 21:37 98.3 F 92 17 148/72 94 L 03/14/23 15:41 98.3 F 103 H 16 169/77 92 L 03/14/23 14:23 98.9 F 108 H 18 116/83 96 03/14/23 12:15 99.0 F 112 H 19 133/83 98 Intake and Output 03/14/23 03/15/23 03/15/23 22:59 06:59 14:59 Intake Total 194.315 113.877 Output Total 1200 800 Balance 194.315 -1086.123 -800 Intake: Intake, IV Titration 194.315 113.877 Amount Diltiazem 125 mg In 125 Sodium Chloride 0.9% 100 ml @ 5 MG/HR 5 mls/hr IV .Q24H NATALYA Rx#:[id number] Heparin Sod,Pork in 0.45% 69.315 113.877 NaCl 25,000 unit In 0.45 % NaCl 1 250ml.bag @ 8.96 UNITS/KG/HR 9.998 mls/hr IV .Q24H NATALYA Rx#: [id number] Output: Urine 1200 800 Other: Voiding Method Indwelling Catheter Indwelling Catheter Indwelling Catheter # Voids 1 Results - Lab Results Most recent lab results Calcium 8.5 mg/dL (8.4-10.2) 03/15/23 03:05 Magnesium 1.7 mg/dL (1.6-2.3) 03/15/23 03:05 03/15/23 03:05 03/15/23 03:05 Assessment and Plan Plan: Assessment: 1. Acute kidney injury secondary to vasomotor nephropathy secondary to he modynamic instability. Further worsened with the use of losartan and Aldactone. Creatinine 3.8 on admission and is 2.06 today. Also component of urinary retention. 2. Chronic kidney disease stage IIIB with baseline creatinine 1.6-1.8 from October through January 2023. Suspect underlying diabetic kidney disease. 3. A. fib with RVR maintain on Cardizem drip. 4. Diabetes mellitus. 5. Hyperkalemia secondary to acute kidney injury, acidosis, Aldactone and losartan. Improved with medical management. 6. Metabolic acidosis secondary to acute kidney injury. Was also on metformin. Improved with bicarbonate drip. 7. Urinary retention. Currently has Amaya catheter. On Flomax. Plan: Stop bicarb drip. Start normal saline at 75 mL an hour. Add oral bicarbonate. Blood sugar control. Continue to hold Aldactone and losartan. Avoid nephrotoxins. Check renal ultrasound. Add Flomax. Thank you for the consultation. I will continue to follow the patient with you during his hospital stay.
[2023-03-15 11:30] LABS: Glucose,Whole Blood 387 mg/dL (70-110)
[2023-03-15] MEDS: SODIUM BICARBONATE TAB 650 MG TAB PO SCH ×2 (11:43→20:55)
[2023-03-15] MEDS: SODIUM CHLORIDE 0.9% 1,000 ML IV SCH (11:44)
--- NOTE | 2023-03-15 13:28 | US ---
EXAMINATION TYPE: US kidneys/renal and bladder DATE OF EXAM: 03/15/2023 COMPARISON: NONE CLINICAL INDICATION: Male, 72 years old with history of dave; EXAM MEASUREMENTS: Right Kidney: 11.3 x 4.9 x 5.2 cm Left Kidney: 11.6 x 5.6 x 5.5 cm Post Void Residual Volume: NA mL Right Kidney: Cyst = 6.6 x 6.2 x 7.2 in the mid renal pelvic region. Parapelvic cysts Left Kidney: Multiple cysts, largest inferior pole = 3.7 x 2.7 x 3.0 cm Bladder: Non-vis due to limon Bilateral Jets seen: Not able to assess Normal Post Void Residual: Not able to assess There is no evidence for hydronephrosis at this point in time. No nephrolithiasis is seen. IMPRESSION: 1. Right peripelvic cyst. 2. Inferior pole left renal cyst
[2023-03-15] MEDS ORDERED: DEXTROSE 50% SYRINGE 50 ML IVP PRN ×2 (14:26)
[2023-03-15] MEDS ORDERED: INSULIN DETEMIR (LEVEMIR) 100 UNIT/ML SYR SQ STA (14:31)
--- NOTE | 2023-03-15 15:01 | P.CRDCN ---
History of Present Illness Consult date: 03/15/23 Consult reason: atrial fibrillation History of present illness: History of present illness: This is a 72-year-old male patient of Dr. Rivas as done at medical history of paroxysmal atrial fibrillation, sick sinus syndrome status post pacemaker, hypertension, dyslipidemia. We have been asked to evaluate the patient for A. fib with RVR. Patient apparently had 2 falls with no loss of consciousness. Family passed to the nurse that he has not been eating and not been taking his medication and have had multiple falls at home. Patient was found initially to be in A. fib with RVR at 157 bpm and started on Cardizem drip and heparin drip. Patient is a very poor historian with some underlying confusion/dementia suspected. Patient was previously on amiodarone and Xarelto which appear to have been discontinued since he was last in the office possibly due to falls. EKG atrial fibrillation 157 bpm #2 atrial fibrillation at 111 bpm Chest x-ray: No acute process WBC 16.4, hemoglobin 12.9, platelet count 159. BUN is 72, creatinine initially 3.8 followed by 2.06, potassium 3.8. Magnesium 1.7. Troponin negative 1. Alkaline phosphatase 186 otherwise liver function tests are normal. Home cardiac medications: Losartan 100 mg daily, Toprol-XL 100 mg every 12 hours, Aldactone 25 mg daily Echocardiogram performed 12/2019 revealed EF of 55-60%, mild LVH, RVSP 9.56 mmHg. Cardiac catheterization history and 2012 showed 50% mid LAD, mild irregularities in the RCA, normal left circumflex. Dual chamber pacemaker Med[employer] placed by Dr. Marcos 09/21/2020 Lexiscan stress test 04/01/2017 revealed fixed defect secondary to soft tissue a ttenuation. Review Of Systems: At the time of my exam: CONSTITUTIONAL: Denies fever or chills. Frequent falls CARDIOVASCULAR: Denies chest pain, Denies shortness of breath, no orthopnea, PND or palpitations. RESPIRATORY: Denies cough. GASTROINTESTINAL: Denies abdominal pain, diarrhea, constipation, nausea or vomiting. Loss of appetite and weight loss MUSCULOSKELETAL: Denies myalgias. NEUROLOGIC: Denies numbness, tingling or weakness. ENDOCRINE: Denies fatigue, weight change, polydipsia or polyurina. GENITOURINARY: Denies burning, hematuria or urgency with micturation. HEMATOLOGIC: Denies history of anemia or bleeding. Physical examination: Gen: This is a 72-year-old male resting in a recliner and appears to be in no acute respiratory distress VS: reviewed HEENT: Head is atraumatic, normocephalic. Pupils equal, round. Sclerae is anicteric. NECK: Supple. No JVD. LUNGS: Clear to auscultation. No wheezes or rhonchi. No intercostal retractions. HEART: Irregular rate and rhythm. No murmur. ABDOMEN: Soft No tenderness. EXTREMITIES: No pedal edema. No calf tenderness. NEUROLOGICAL: Patient is awake, alert. Assessment: Atrial fibrillation with RVR, paroxysmal Acute kidney injury Acute urinary tract infection Hypertension Dyslipidemia Plan: Continue Cardizem drip while patient is acutely ill Patient may not be good candidate for anticoagulation due to frequent falls. Continue metipranolol Selsun 8 100 mg twice daily Continue patient on Cardizem drip and heparin drip Further recommendations to follow based upon clinical course Thank you kindly for this consultation. Nurse practitioner note has been reviewed, I agree with documented findings and plan of care. Patient was seen and examined. Past Medical History Past Medical History: Atrial Fibrillation, Heart Failure, Diabetes Mellitus, Hearing Disorder / Deafness, Hypertension, Renal Disease, Sleep Apnea/CPAP/BIPAP Additional Past Medical History / Comment(s): IDDM type II, [place] bilaterally- wears aide History of Any Multi-Drug Resistant Organisms: None Reported Past Surgical History: Ablation, Heart Catheterization, Pacemaker Additional Past Surgical History / Comment(s): R eye surgery/lens implant-pt believes d/t infection, colonoscopy. Pacemaker d/t low heart rate per pt. Past Anesthesia/Blood Transfusion Reactions: No Reported Reaction Type of Cardiac Device: Unknown Device Placement Date:: unknown Past Psychological History: No Psychological Hx Reported Additional Psychological History / Comment(s): Pt resides alone in a [facility] apartment. He has pull cords for emergency. His sister organizes his meds and drives him to [employer]. Smoking Status: Former smoker Past Alcohol Use History: None Reported Additional Past Alcohol Use History / Comment(s): Pt smoked cigars from 1970- 2009. He states he was never a heavy drinker but has not had any alcohol since 2009. Past Drug Use History: None Reported - Past Family History Father Family Medical History: Myocardial Infarction ([place]) Additional Family Medical History / Comment(s): Father of a [place] but pt cannot recall at what age. Mother Family Medical History: Cancer Additional Family Medical History / Comment(s): Pt cannot recall type of cancer. Medications and Allergies Home Medications Medication Instructions Recorded Confirmed Type Metoprolol Succinate [Toprol XL] 100 mg PO Q12H 12/30/19 03/13/23 History metFORMIN HCL 500 mg PO BID 12/30/19 03/13/23 History Spironolactone [Aldactone] 25 mg PO DAILY #0 tablet 01/01/20 03/13/23 Rx Linagliptin [Tradjenta] 5 mg PO DAILY 01/11/23 03/13/23 History Tamsulosin HCl [Flomax] 0.8 mg PO DAILY 01/11/23 03/13/23 History hydrOXYzine pamoate [Vistaril] 25 mg PO TID 01/11/23 03/13/23 History Insulin Glargine,Hum.rec.anlog 10 units SQ DAILY 03/13/23 03/13/23 History [Lantus Solostar Pen] Insulin Lispro [humaLOG Kwikpen] 6 unit SQ AC-SUPPER 03/13/23 03/13/23 History Insulin Lispro [humaLOG Kwikpen] 12 units SQ AC-BRKFST 03/13/23 03/13/23 History Losartan Potassium 100 mg PO DAILY 03/13/23 03/13/23 History Omeprazole Magnesium [PriLOSEC OTC] 40 mg PO DAILY 03/13/23 03/13/23 History Allergies Allergy/AdvReac Type Severity Reaction Status Date / Time codeine AdvReac Severe Verified 03/13/23 14:21 insomnia Physical Exam Vitals: Vital Signs Temp Pulse Pulse Resp BP BP Pulse Ox 03/15/23 10:13 98 03/15/23 09:10 97.6 F 111 H 18 135/68 97 03/15/23 03:48 97.7 F 87 17 148/77 94 L 03/14/23 23:29 98.1 F 107 H 17 135/76 95 03/14/23 21:37 98.3 F 92 17 148/72 94 L 03/14/23 15:41 98.3 F 103 H 16 169/77 92 L 03/14/23 14:23 98.9 F 108 H 18 116/83 96 03/14/23 12:15 99.0 F 112 H 19 133/83 98 Intake and Output 03/14/23 03/15/23 03/15/23 22:59 06:59 14:59 Intake Total 194.315 113.877 Output Total 1200 800 Balance 194.315 -1086.123 -800 Intake: Intake, IV Titration 194.315 113.877 Amount Diltiazem 125 mg In 125 Sodium Chloride 0.9% 100 ml @ 5 MG/HR 5 mls/hr IV .Q24H [facility] Rx#:[id number] Heparin Sod,Pork in 0.45% 69.315 113.877 NaCl 25,000 unit In 0.45 % NaCl 1 250ml.bag @ 8.96 UNITS/KG/HR 9.998 mls/hr IV .Q24H [facility] Rx#: [id number] Output: Urine 1200 800 Other: Voiding Method Indwelling Catheter Indwelling Catheter Indwelling Catheter # Voids 1 Results 03/15/23 03:05 03/15/23 03:05 Coagulation 03/14/23 03/15/23 Range/Units 16:43 03:05 APTT 186.3 H* 96.9 H (22.0-30.0) sec CBC 03/15/23 Range/Units 03:05 WBC 16.4 H (3.8-10.6) k/uL RBC 4.11 L (4.30-5.90) m/uL Hgb 12.9 L D (13.0-17.5) gm/dL Hct 38.2 L (39.0-53.0) % Plt Count 159 (150-450) k/uL Comprehensive Metabolic Panel 03/14/23 03/14/23 03/15/23 Range/Units 18:24 20:24 03:05 Sodium 137 (137-145) mmol/L Potassium 4.3 4.2 3.8 (3.5-5.1) mmol/L Chloride 103 (98-107) mmol/L Carbon Dioxide 20 L (22-30) mmol/L BUN 72 H (9-20) mg/dL Creatinine 2.06 H (0.66-1.25) mg/dL Glucose 367 H (74-99) mg/dL Calcium 8.5 (8.4-10.2) mg/dL Current Medications Generic Name Dose Route Start Last Admin Trade Name Freq PRN Reason Stop Dose Admin Heparin Sodium (Porcine) 0 unit 03/14/23 03:09 03/14/23 10:46 Heparin Sodium 1,000 Un/Ml (10ml Vl) IV 4,000 unit PER PROTOCOL PRN Administration Low PTT Protocol Diltiazem HCl 125 mg/ Sodium 125 mls @ 5 mls/hr 03/13/23 14:30 03/15/23 06:26 Chloride IV 5 mg/hr .Q24H NATALYA 5 mls/hr Administration 5 MG/HR Ceftriaxone Sodium 2 gm/ 50 mls @ 100 mls/hr 03/14/23 18:00 03/14/23 16:54 Sodium Chloride IVPB 100 mls/hr Q24H NATALYA Administration Protocol Heparin Sodium/Sodium Chloride 250 mls @ 9.998 mls/hr 03/13/23 18:15 03/15/23 06:18 25,000 unit/ Sodium Chloride IV 8.96 units/kg/hr .Q24H NATALYA 9.998 mls/hr Titration Protocol 8.96 UNITS/KG/HR Sodium Bicarbonate 150 ml/ 1,150 mls @ 100 mls/hr 03/14/23 18:45 03/15/23 06:18 Dextrose/Water IV 100 mls/hr .[id number] NATALYA Administration Insulin Aspart 6 unit 03/14/23 17:30 03/14/23 16:54 Insulin Aspart (Novolog) 100 Unit/Ml Vial SQ 6 unit AC-SUPPER [facility] Administration Insulin Aspart 12 unit 03/15/23 07:30 03/15/23 09:00 Insulin Aspart (Novolog) 100 Unit/Ml Vial SQ Not Given AC-BRKFST [facility] Insulin Detemir 10 unit 03/14/23 15:45 03/15/23 06:30 Insulin Detemir (Levemir) 100 Unit/Ml Syr SQ 10 unit DAILY@0700 NATALYA Administration Linagliptin 5 mg 03/15/23 09:00 03/15/23 09:04 Linagliptin 5 Mg Tablet PO 5 mg DAILY NATALYA Administration Metoprolol Succinate 100 mg 03/14/23 21:00 03/15/23 09:04 Metoprolol Succinate (Er) 100 Mg Tab.Er.24h PO 100 mg Q12HR NATALYA Administration Nystatin 1 applic 03/14/23 22:00 03/15/23 09:04 Nystatin 100,000 Unit/Gm Powd 15 Gm TOPICAL 1 applic TID NATALYA Administration Protocol Pantoprazole Sodium 40 mg 03/15/23 07:30 03/15/23 09:04 Pantoprazole 40 Mg Tablet PO 40 mg AC-BRKFST NATALYA Administration Petrolatum 1 applic 03/14/23 18:09 Zinc Oxide Paste (Z-Guard) 1 Applic TOPICAL BID PRN [facility] Healing Protocol Tamsulosin HCl 0.8 mg 03/15/23 09:00 03/15/23 09:04 Tamsulosin 0.4 Mg Cap.Er.24h PO 0.8 mg DAILY NATALYA Administration Intake and Output 03/14/23 03/15/23 03/15/23 22:59 06:59 14:59 Intake Total 194.315 113.877 Output Total 1200 800 Balance 194.315 -1086.123 -800 Intake: Intake, IV Titration 194.315 113.877 Amount Diltiazem 125 mg In 125 Sodium Chloride 0.9% 100 ml @ 5 MG/HR 5 mls/hr IV .Q24H [facility] Rx#:[id number] Heparin Sod,Pork in 0.45% 69.315 113.877 NaCl 25,000 unit In 0.45 % NaCl 1 250ml.bag @ 8.96 UNITS/KG/HR 9.998 mls/hr IV .Q24H [facility] Rx#: [id number] Output: Urine 1200 800 Other: Voiding Method Indwelling Catheter Indwelling Catheter Indwelling Catheter # Voids 1 03/15/23 03:05 03/15/23 03:05
[2023-03-15 16:27] LABS: Glucose,Whole Blood 350 mg/dL (70-110)
[2023-03-15] MEDS: INSULIN ASPART (NovoLOG) 100 UNIT/ML VIAL SQ SCH ×2 (17:12→20:55)
[2023-03-15 20:12] LABS: Glucose,Whole Blood 220 mg/dL (70-110)
--- NOTE | 2023-03-16 00:50 | HP ---
HISTORY AND PHYSICAL CHIEF COMPLAINT: Weakness, frequent falling, debility, diabetes, and urinary tract infection. HISTORY OF PRESENT ILLNESS: This is another admission for this 72-year-old white male. He has been debilitated for some time, was falling at home. He was brought in and sent to [facility]. Apparently, he was discharged. I knew nothing about this. He went home and immediately started falling once again. He was brought into the hospital. He has not had any focal neurologic deficits, mental status changes, etc. He did have urinary tract infection in the emergency room. REVIEW OF SYSTEMS: He states only that he cannot walk and keeps falling. He denies pain. PHYSICAL EXAMINATION: VITAL SIGNS: Normal. HEAD, EARS, EYES, NOSE, MOUTH, AND THROAT: Normal. Carotids are normal. CHEST: Clear. CARDIAC: Normal. ABDOMEN: Soft, nontender. EXTREMITIES: Normal. IMPRESSION: 1. General debility and weakness with frequent and continuous falling. 2. Urinary tract infection. 3. Diabetes mellitus with poor control. PLAN: 1. Bed rest. 2. IV fluids. 3. Frequent monitoring of his neurologic status and vital signs. 4. Control diabetes. 5. PT, OT, and Social Service referral. MMODL / IJN: [id number] /
[2023-03-16] MEDS: HEPARIN SOD,PORK IN 0.45% NACL 25,000 UNIT in 0.45% NACL 1 250ML.BAG IV SCH ×2 (01:46→05:17)
[2023-03-16] MEDS: SODIUM CHLORIDE 0.9% 1,000 ML IV SCH ×3 (05:19→20:39)
[2023-03-16 06:12] LABS: Glucose,Whole Blood 75 mg/dL (70-110)
[2023-03-16] MEDS: INSULIN ASPART (NovoLOG) 100 UNIT/ML VIAL SQ SCH ×4 (06:36→20:31)
[2023-03-16] MEDS: PANTOPRAZOLE 40 MG TABLET PO SCH (06:40)
[2023-03-16] MEDS: INSULIN DETEMIR (LEVEMIR) 100 UNIT/ML SYR SQ SCH (06:40)
--- NOTE | 2023-03-16 07:23 | PN ---
PROGRESS NOTE DATE OF SERVICE: 03/15/2023 CHIEF COMPLAINT: Debility and frequent falling. HISTORY OF PRESENT ILLNESS: This gentleman is doing fairly well. His blood sugars were elevated somewhat. He is not eating well. REVIEW OF SYSTEMS: He denies chest pain, nausea, abdominal pain, etc. PHYSICAL EXAMINATION: CHEST: Clear. CARDIAC: Normal. ABDOMEN: Soft, nontender. IMPRESSION: 1. General debility with frequent falling. 2. Elevated blood sugars. PLAN: Increase insulin management and set up for discharge planning again. MMODL / IJN: [id number] /
--- NOTE | 2023-03-16 07:23 | PN ---
PROGRESS NOTE DATE OF SERVICE: 03/14/2023 CHIEF COMPLAINT: General debility and frequent falling. HISTORY OF PRESENT ILLNESS: This gentleman is unchanged. He denies pain. He states that he cannot walk without falling. PHYSICAL EXAMINATION: CHEST: Clear. CARDIAC: Normal. ABDOMEN: Soft and nontender. EXTREMITIES: Normal. IMPRESSION: 1. General debility and weakness. 2. Frequent falling. 3. Uncontrolled diabetes. PLAN: Continue efforts to manage his blood sugar while contacting transition social worker regarding discharge plan. MMODL / IJN: [id number] /
[2023-03-16] MEDS: SODIUM BICARBONATE TAB 650 MG TAB PO SCH ×2 (09:10→20:39)
[2023-03-16] MEDS: METOPROLOL SUCCINATE (ER) 100 MG TAB.ER.24H PO SCH ×2 (09:11→20:39)
[2023-03-16] MEDS: LINAGLIPTIN 5 MG TABLET PO SCH (09:11)
[2023-03-16] MEDS: TAMSULOSIN 0.4 MG CAP.ER.24H PO SCH (09:11)
[2023-03-16] MEDS: NYSTATIN 100,000 UNIT/GM POWD 15 GM TOPICAL SCH ×3 (09:12→20:39)
[2023-03-16 09:21] LABS: African American GFR (CKD) 44 (>60 ml/min/1.73 sqM); Anion Gap 12 mmol/L; Blood Urea Nitrogen 51 mg/dL (9-20); Carbon Dioxide 25 mmol/L (22-30); Chloride 100 mmol/L (98-107); Glucose 143 mg/dL (74-99); Magnesium 1.5 mg/dL (1.6-2.3); Non-African American GFR(CKD) 38 (>60 ml/min/1.73 sqM); Potassium 3.6 mmol/L (3.5-5.1); Sodium 137 mmol/L (137-145)
[2023-03-16] MEDS ORDERED: DEXTROSE 5%-0.2% NACL 1,000 ML IV SCH (11:15)
[2023-03-16 11:20] LABS: Glucose,Whole Blood 185 mg/dL (70-110)
[2023-03-16] MEDS ORDERED: POTASSIUM CHLORIDE ER 20 MEQ TAB.ER PO STA (11:38)
--- NOTE | 2023-03-16 11:39 | P.PN ---
Subjective Patient is seen in follow-up for acute kidney injury on chronic kidney disease. Renal function improving. Nonoliguric. No vomiting today. Denies chest pain or shortness of breath. On room air. Vital signs are stable. General: No acute distress. HEENT: Head exam is unremarkable. LUNGS: Notable rhonchi or wheezes. HEART: Rate and Rhythm are regular. ABDOMEN: Nontender. EXTREMITITES: No edema. Objective - Vital Signs Vital signs: Vital Signs Temp 97.5 F L 03/16/23 09:00 Pulse 80 03/16/23 10:06 Resp 18 03/16/23 10:06 BP 121/72 03/16/23 09:00 Pulse Ox 98 03/16/23 09:00 FiO2 Intake & Output 03/15/23 03/16/23 03/16/23 18:59 06:59 18:59 Intake Total 358.123 240 Output Total 1800 600 Balance -1800 -241.877 240 Intake: Intake, IV Titration 136.123 Amount Heparin Sod,Pork in 0.45% 136.123 NaCl 25,000 unit In 0.45 % NaCl 1 250ml.bag @ 8.96 UNITS/KG/HR 9.998 mls/hr IV .Q24H [facility] Rx#: [id number] Oral 222 240 Output: Urine 1800 600 Other: Voiding Method Indwelling Catheter Indwelling Catheter Indwelling Catheter - Labs CBC & Chem 7: 03/15/23 03:05 03/16/23 08:00 Labs: Abnormal Lab Results - Last 24 Hours (Table) 03/15/23 03/15/23 03/15/23 Range/Units 11:40 16:25 20:04 APTT 58.7 H (22.0-30.0) sec BUN (9-20) mg/dL Creatinine (0.66-1.25) mg/dL Glucose (74-99) mg/dL POC Glucose (mg/dL) 350 H 220 H (70-110) mg/dL Calcium (8.4-10.2) mg/dL Magnesium (1.6-2.3) mg/dL 03/16/23 03/16/23 03/16/23 Range/Units 08:00 08:00 11:19 APTT 55.4 H (22.0-30.0) sec BUN 51 H (9-20) mg/dL Creatinine 1.74 H (0.66-1.25) mg/dL Glucose 143 H (74-99) mg/dL POC Glucose (mg/dL) 185 H (70-110) mg/dL Calcium 8.0 L (8.4-10.2) mg/dL Magnesium 1.5 L (1.6-2.3) mg/dL Microbiology - Last 24 Hours (Table) 03/13/23 18:12 Blood Culture - Preliminary Blood 03/13/23 18:09 Blood Culture - Preliminary Blood Assessment and Plan Plan: Assessment: 1. Acute kidney injury secondary to vasomotor nephropathy secondary to hemodynamic instability. Further worsened with the use of losartan and Al dactone. Creatinine 3.8 on admission and is 1.74 today. Also component of urinary retention. No hydronephrosis noted kidney ultrasound. 2. Chronic kidney disease stage IIIB with baseline creatinine 1.6-1.8 from October through January 2023. Suspect underlying diabetic kidney disease. 3. A. fib with RVR s/p Cardizem drip. On metoprolol. Cardiology following. 4. Diabetes mellitus. 5. Hyperkalemia secondary to acute kidney injury, acidosis, Aldactone and losartan. Improved with medical management. Now potassium on lower side. 6. Metabolic acidosis secondary to acute kidney injury. Was also on metformin. Improved. s/p bicarbonate drip. On oral bicarbonate. 7. Urinary retention. Currently has Amaya catheter. On Flomax. 8. Hypomagnesemia from poor intake. Plan: Decrease rate of normal saline to 50 mL an hour. Encouraged oral intake. Replace magnesium. Blood sugar control. Continue to hold Aldactone and losartan. Avoid nephrotoxins.
[2023-03-16] MEDS: MAGNESIUM SULFATE-D5W PMX 1 GM in DEXTROSE/WATER 1 100ML.BAG IVPB SCH ×2 (11:57→16:15)
--- NOTE | 2023-03-16 14:00 | P.PN ---
Subjective Progress Note Date: 03/16/23 This is Noble Dillard NP, I'm dictating on behalf of Dr. Rivas's H&P and A&P. Patient was interviewed and examined. Patient is a pleasant 72-year-old male who presented to the hospital with a urinary tract infection and possible sepsis, who also demonstrated atrial fibrillation with rapid ventricular response. Patient has been on a Cardizem drip at 5 mg per hour, and his metoprolol was increased to 100 mg twice a day. Today the patient reports that he's feeling okay. He is denying chest pain, sh ortness of breath, heart palpitations, and dizziness. Patient's heart rate appears to be adequate controlled with the metoprolol. Patient's blood pressure is also stable. GENERAL: Well-appearing, well-nourished and in no acute distress. NECK: Supple without JVD or thyromegaly. LUNGS: Breath sounds clear to auscultation bilaterally. Respiration equal and unlabored. No wheezes, rales or rhonchi. HEART: Regular rate and irregular rhythm without murmurs, rubs or gallops. S1 and S2 heard. EXTREMITIES: Normal range of motion, no edema. No clubbing or cyanosis. Peripheral pulses intact and strong. VITALS: Temp 97.5, pulse 80, respirations 18, blood pressure 121/72, O2 saturation 98% on room air TELEMETRY: Atrial fibrillation with controlled ventricular response LABS: Sodium 137, potassium 3.6, B1 51, creatinine 1.74, hemoglobin A1c 8, calcium 8, magnesium 1.5 IMPRESSION: 1. Atrial fibrillation with rapid ventricular response, paroxysmal 2. Acute kidney injury 3. Acute urinary tract infection 4. Hypertension 5. Dyslipidemia PLAN: Discontinue IV Cardizem. Heart rate appears adequately controlled and patient is on appropriate medical therapy. Continue metoprolol as ordered. Further recommendations based on patient's clinical course. Objective - Vital Signs Vital signs: Vital Signs Temp 97.5 F L 03/16/23 09:00 Pulse 67 03/16/23 11:50 Resp 18 03/16/23 11:50 BP 115/67 03/16/23 11:50 Pulse Ox 98 03/16/23 11:50 FiO2 Intake & Output 03/15/23 03/16/23 03/16/23 18:59 06:59 18:59 Intake Total 358.123 240 Output Total 1800 600 Balance -1800 -241.877 240 Intake: Intake, IV Titration 136.123 Amount Heparin Sod,Pork in 0.45% 136.123 NaCl 25,000 unit In 0.45 % NaCl 1 250ml.bag @ 8.96 UNITS/KG/HR 9.998 mls/hr IV .Q24H [facility] Rx#: [id number] Oral 222 240 Output: Urine 1800 600 Other: Voiding Method Indwelling Catheter Indwelling Catheter Indwelling Catheter - Labs CBC & Chem 7: 03/15/23 03:05 03/16/23 08:00 Labs: Abnormal Lab Results - Last 24 Hours (Table) 03/15/23 03/15/23 03/16/23 Range/Units 16:25 20:04 08:00 APTT (22.0-30.0) sec BUN (9-20) mg/dL Creatinine (0.66-1.25) mg/dL Glucose (74-99) mg/dL POC Glucose (mg/dL) 350 H 220 H (70-110) mg/dL Hemoglobin A1c 8.0 H (<=6.0) % Calcium (8.4-10.2) mg/dL Magnesium (1.6-2.3) mg/dL 03/16/23 03/16/23 03/16/23 Range/Units 08:00 08:00 11:19 APTT 55.4 H (22.0-30.0) sec BUN 51 H (9-20) mg/dL Creatinine 1.74 H (0.66-1.25) mg/dL Glucose 143 H (74-99) mg/dL POC Glucose (mg/dL) 185 H (70-110) mg/dL Hemoglobin A1c (<=6.0) % Calcium 8.0 L (8.4-10.2) mg/dL Magnesium 1.5 L (1.6-2.3) mg/dL Microbiology - Last 24 Hours (Table) 03/13/23 18:12 Blood Culture - Preliminary Blood 03/13/23 18:09 Blood Culture - Preliminary Blood
[2023-03-16 16:18] LABS: Glucose,Whole Blood 144 mg/dL (70-110)
[2023-03-16 19:58] LABS: Glucose,Whole Blood 130 mg/dL (70-110)
[2023-03-17 05:57] LABS: Glucose,Whole Blood 117 mg/dL (70-110)
[2023-03-17] MEDS: INSULIN ASPART (NovoLOG) 100 UNIT/ML VIAL SQ SCH ×4 (06:12→20:52)
[2023-03-17] MEDS: PANTOPRAZOLE 40 MG TABLET PO SCH (06:15)
[2023-03-17] MEDS: INSULIN DETEMIR (LEVEMIR) 100 UNIT/ML SYR SQ SCH (06:15)
[2023-03-17] MEDS: HEPARIN SOD,PORK IN 0.45% NACL 25,000 UNIT in 0.45% NACL 1 250ML.BAG IV SCH (06:16)
[2023-03-17] MEDS: TAMSULOSIN 0.4 MG CAP.ER.24H PO SCH (09:10)
[2023-03-17] MEDS: LINAGLIPTIN 5 MG TABLET PO SCH (09:10)
[2023-03-17] MEDS: SODIUM BICARBONATE TAB 650 MG TAB PO SCH ×2 (09:10→20:52)
[2023-03-17] MEDS: METOPROLOL SUCCINATE (ER) 100 MG TAB.ER.24H PO SCH ×2 (09:10→20:52)
[2023-03-17] MEDS: NYSTATIN 100,000 UNIT/GM POWD 15 GM TOPICAL SCH ×3 (09:11→20:52)
[2023-03-17 09:51] LABS: African American GFR (CKD) 55 (>60 ml/min/1.73 sqM); Anion Gap 14 mmol/L; Blood Urea Nitrogen 34 mg/dL (9-20); Carbon Dioxide 20 mmol/L (22-30); Chloride 99 mmol/L (98-107); Glucose 128 mg/dL (74-99); Magnesium 1.6 mg/dL (1.6-2.3); Non-African American GFR(CKD) 48 (>60 ml/min/1.73 sqM); Potassium 3.5 mmol/L (3.5-5.1); Sodium 133 mmol/L (137-145)
[2023-03-17] MEDS ORDERED: POTASSIUM CHLORIDE ER 20 MEQ TAB.ER PO STA (11:06)
--- NOTE | 2023-03-17 11:07 | P.PN ---
Subjective Patient is seen in follow-up for acute kidney injury on chronic kidney disease. Renal function improving. Nonoliguric. No vomiting or diarrhea. Denies chest pain or shortness of breath. On room air. Nonoliguric. Vital signs are stable. General: No acute distress. HEENT: Head exam is unremarkable. LUNGS: Notable rhonchi or wheezes. HEART: Rate and Rhythm are regular. ABDOMEN: Nontender. EXTREMITITES: No edema. Objective - Vital Signs Vital signs: Vital Signs Temp 97.3 F L 03/17/23 09:04 Pulse 92 03/17/23 09:59 Resp 18 03/17/23 09:59 BP 142/66 03/17/23 09:04 Pulse Ox 98 03/17/23 09:04 FiO2 Intake & Output 03/16/23 03/17/23 03/17/23 18:59 06:59 18:59 Intake Total 240 1011.783 240 Output Total 600 650 Balance -360 361.783 240 Intake: Intake, IV Titration 249.783 Amount Heparin Sod,Pork in 0.45% 249.783 NaCl 25,000 unit In 0.45 % NaCl 1 250ml.bag @ 8.96 UNITS/KG/HR 9.998 mls/hr IV .Q24H [facility] Rx#: [id number] Oral 240 762 240 Output: Urine 600 650 Other: Voiding Method Indwelling Catheter Indwelling Catheter Indwelling Catheter - Labs CBC & Chem 7: 03/15/23 03:05 03/17/23 08:31 Labs: Abnormal Lab Results - Last 24 Hours (Table) 03/16/23 03/16/23 03/16/23 Range/Units 08:00 11:19 16:11 APTT (22.0-30.0) sec Sodium (137-145) mmol/L Carbon Dioxide (22-30) mmol/L BUN (9-20) mg/dL Creatinine (0.66-1.25) mg/dL Glucose (74-99) mg/dL POC Glucose (mg/dL) 185 H 144 H (70-110) mg/dL Hemoglobin A1c 8.0 H (<=6.0) % Calcium (8.4-10.2) mg/dL 03/16/23 03/17/23 03/17/23 Range/Units 19:56 05:51 08:31 APTT (22.0-30.0) sec Sodium 133 L (137-145) mmol/L Carbon Dioxide 20 L (22-30) mmol/L BUN 34 H (9-20) mg/dL Creatinine 1.44 H (0.66-1.25) mg/dL Glucose 128 H (74-99) mg/dL POC Glucose (mg/dL) 130 H 117 H (70-110) mg/dL Hemoglobin A1c (<=6.0) % Calcium 8.0 L (8.4-10.2) mg/dL 03/17/23 Range/Units 08:31 APTT 44.2 H (22.0-30.0) sec Sodium (137-145) mmol/L Carbon Dioxide (22-30) mmol/L BUN (9-20) mg/dL Creatinine (0.66-1.25) mg/dL Glucose (74-99) mg/dL POC Glucose (mg/dL) (70-110) mg/dL Hemoglobin A1c (<=6.0) % Calcium (8.4-10.2) mg/dL Microbiology - Last 24 Hours (Table) 03/13/23 18:12 Blood Culture - Preliminary Blood 03/13/23 18:09 Blood Culture - Preliminary Blood Assessment and Plan Plan: Assessment: 1. Acute kidney injury secondary to vasomotor nephropathy secondary to hemodynamic instability. Further worsened with the use of losartan and Aldactone. Creatinine 3.8 on admission and is 1.44 today. Also component of urinary retention. No hydronephrosis noted kidney ultrasound. 2. Chronic kidney disease stage IIIB with baseline creatinine 1.6-1.8 from October through January 2023. Suspect underlying diabetic kidney disease. 3. A. fib with RVR s/p Cardizem drip. On metoprolol. Cardiology following. 4. Diabetes mellitus. 5. Hyperkalemia secondary to acute kidney injury, acidosis, Aldactone and losartan. Improved with medical management. Now potassium on lower side. 6. Metabolic acidosis secondary to acute kidney injury. Was also on metformin. Also component of IV fluids. Improved. s/p bicarbonate drip. On oral bicarbonate. 7. Urinary retention. Currently has Amaya catheter. On Flomax. 8. Hypomagnesemia from poor intake. Replace. Better. Plan: Hep-Lock IV fluids. Encouraged oral intake. Replace potassium. Add magox. Encouraged oral intake. Blood sugar control. Resume low-dose losartan. Hold for systolic blood pressure less than 120. Avoid nephrotoxins.
[2023-03-17 11:52] LABS: Glucose,Whole Blood 212 mg/dL (70-110)
[2023-03-17] MEDS: LOSARTAN 25 MG TAB PO SCH (12:10)
[2023-03-17] MEDS: MAGNESIUM OXIDE 400 MG TAB PO SCH ×2 (12:11→20:52)
--- NOTE | 2023-03-17 13:46 | P.PN ---
Subjective Progress Note Date: 03/17/23 This is Noble Dillard NP, I'm dictating on behalf of Dr. Rivas's H&P and A&P. Patient was interviewed and examined. Patient is a pleasant 72-year-old male who presented to the hospital with a urinary tract infection and possible sepsis, who also demonstrated atrial fibrillation with rapid ventricular response. IV Cardizem was stopped yesterday, the patient was continued on oral metoprolol at 100 mg twice a day. This does appear to be adequately controlling the patient's heart rate. This morning the patient reports that he's feeling okay. He is denying chest pain, shortness of breath, and heart palpitations. Patient had multiple falls prior to admission, and it is recommended that the patient see physical therapy prior to discharge to determine continued fall risk. Falls may have been secondary to weakness due to atrial fibrillation, and it will need to be determined if the patient is a candidate for anticoagulation therapy. At this time we would continue the heparin drip until a determination can be made by physical therapy if the patient is a high fall risk. If so anticoagulation would be contraindicated. GENERAL: Well-appearing, well-nourished and in no acute distress. NECK: Supple without JVD or thyromegaly. LUNGS: Breath sounds clear to auscultation bilaterally. Respiration equal and unlabored. No wheezes, rales or rhonchi. HEART: Regular rate and irregular rhythm without murmurs, rubs or gallops. S1 and S2 heard. EXTREMITIES: Normal range of motion, no edema. No clubbing or cyanosis. Peripheral pulses intact and strong. VITALS: Temp 97.3, pulse 92, respirations 18, blood pressure 142/66, O2 saturation 98% on room air TELEMETRY: Atrial fibrillation with controlled ventricular response LABS: Sodium 133, potassium 3.5, B1 34, creatinine 1.44, calcium 8.0, magnesium 1.6 IMPRESSION: 1. Atrial fibrillation with rapid ventricular response, paroxysmal 2. Acute kidney injury 3. Acute urinary tract infection 4. Hypertension 5. Dyslipidemia PLAN: Continue metoprolol 100 mg twice a day. Patient's heart rate is well-controlled on this dose. Recommend physical therapy evaluation to determine overall fall risk. If patient is a high fall risk, anticoagulation would be contraindicated. Continue heparin drip while this determination is being made. Further recommendations based on patient's clinical course. Objective - Vital Signs Vital signs: Vital Signs Temp 97.3 F L 03/17/23 09:04 Pulse 98 03/17/23 12:09 Resp 18 03/17/23 12:09 BP 121/71 03/17/23 12:09 Pulse Ox 97 03/17/23 12:09 FiO2 Intake & Output 03/16/23 03/17/23 03/17/23 18:59 06:59 18:59 Intake Total 240 1011.783 240 Output Total 600 650 Balance -360 361.783 240 Intake: Intake, IV Titration 249.783 Amount Heparin Sod,Pork in 0.45% 249.783 NaCl 25,000 unit In 0.45 % NaCl 1 250ml.bag @ 8.96 UNITS/KG/HR 9.998 mls/hr IV .Q24H [facility] Rx#: [id number] Oral 240 762 240 Output: Urine 600 650 Other: Voiding Method Indwelling Catheter Indwelling Catheter Indwelling Catheter - Labs CBC & Chem 7: 03/15/23 03:05 03/17/23 08:31 Labs: Abnormal Lab Results - Last 24 Hours (Table) 03/16/23 03/16/23 03/16/23 Range/Units 08:00 16:11 19:56 APTT (22.0-30.0) sec Sodium (137-145) mmol/L Carbon Dioxide (22-30) mmol/L BUN (9-20) mg/dL Creatinine (0.66-1.25) mg/dL Glucose (74-99) mg/dL POC Glucose (mg/dL) 144 H 130 H (70-110) mg/dL Hemoglobin A1c 8.0 H (<=6.0) % Calcium (8.4-10.2) mg/dL 03/17/23 03/17/23 03/17/23 Range/Units 05:51 08:31 08:31 APTT 44.2 H (22.0-30.0) sec Sodium 133 L (137-145) mmol/L Carbon Dioxide 20 L (22-30) mmol/L BUN 34 H (9-20) mg/dL Creatinine 1.44 H (0.66-1.25) mg/dL Glucose 128 H (74-99) mg/dL POC Glucose (mg/dL) 117 H (70-110) mg/dL Hemoglobin A1c (<=6.0) % Calcium 8.0 L (8.4-10.2) mg/dL 03/17/23 Range/Units 11:50 APTT (22.0-30.0) sec Sodium (137-145) mmol/L Carbon Dioxide (22-30) mmol/L BUN (9-20) mg/dL Creatinine (0.66-1.25) mg/dL Glucose (74-99) mg/dL POC Glucose (mg/dL) 212 H (70-110) mg/dL Hemoglobin A1c (<=6.0) % Calcium (8.4-10.2) mg/dL Microbiology - Last 24 Hours (Table) 03/13/23 18:12 Blood Culture - Preliminary Blood 03/13/23 18:09 Blood Culture - Preliminary Blood
[2023-03-17 16:49] LABS: Glucose,Whole Blood 272 mg/dL (70-110)
[2023-03-17 20:13] LABS: Glucose,Whole Blood 289 mg/dL (70-110)
--- NOTE | 2023-03-18 03:20 | PN ---
PROGRESS NOTE DATE OF SERVICE: 03/17/2023 CHIEF COMPLAINT: Evaluation of urinary tract infection, sepsis, renal failure, and general debility. HISTORY OF PRESENT ILLNESS: This gentleman is doing a bit better. He is not nauseated. Vital signs are normal. PHYSICAL EXAMINATION: GENERAL: He is still slightly dehydrated. He remains pale. HEENT: Head, ears, eyes, nose, mouth and throat were normal. CHEST: Clear. CARDIAC: Normal. ABDOMEN: Soft and nontender. IMPRESSION: 1. General debility and weakness. 2. Sepsis. 3. Urinary tract infection. 4. Renal failure. 5. History of uncontrolled diabetes. PLAN: Continue with management of his urinary tract infection and work on the discharge plan. He lives in [facility], went home, and immediately fell, he cannot walk. MMODL / IJN: [id number] /
[2023-03-18] MEDS: HEPARIN SOD,PORK IN 0.45% NACL 25,000 UNIT in 0.45% NACL 1 250ML.BAG IV SCH (04:07)
[2023-03-18 06:06] LABS: Glucose,Whole Blood 139 mg/dL (70-110)
[2023-03-18] MEDS: INSULIN ASPART (NovoLOG) 100 UNIT/ML VIAL SQ SCH ×4 (06:20→20:42)
[2023-03-18] MEDS: PANTOPRAZOLE 40 MG TABLET PO SCH (06:21)
[2023-03-18] MEDS: INSULIN DETEMIR (LEVEMIR) 100 UNIT/ML SYR SQ SCH (06:24)
[2023-03-18] MEDS ORDERED: DEXTROSE 5% IN WATER 100 ML with AMIODARONE 150 MG IV ONE (10:00)
[2023-03-18 10:07] LABS: African American GFR (CKD) 55 (>60 ml/min/1.73 sqM); Anion Gap 12 mmol/L; Blood Urea Nitrogen 32 mg/dL (9-20); Calcium 7.9 mg/dL (8.4-10.2); Carbon Dioxide 21 mmol/L (22-30); Chloride 100 mmol/L (98-107); Glucose 144 mg/dL (74-99); Magnesium 1.5 mg/dL (1.6-2.3); Non-African American GFR(CKD) 48 (>60 ml/min/1.73 sqM); Sodium 133 mmol/L (137-145)
[2023-03-18] MEDS ORDERED: AMIODARONE 360 MG in DEXTROSE 5% IN WATER 200 ML IV ONE ×2 (10:15)
[2023-03-18] MEDS: MAGNESIUM OXIDE 400 MG TAB PO SCH ×2 (10:24→20:32)
[2023-03-18] MEDS: TAMSULOSIN 0.4 MG CAP.ER.24H PO SCH (10:24)
[2023-03-18] MEDS: LINAGLIPTIN 5 MG TABLET PO SCH (10:24)
[2023-03-18] MEDS: SODIUM BICARBONATE TAB 650 MG TAB PO SCH ×2 (10:24→20:32)
[2023-03-18] MEDS: METOPROLOL SUCCINATE (ER) 100 MG TAB.ER.24H PO SCH ×2 (10:24→20:32)
[2023-03-18 11:33] LABS: Glucose,Whole Blood 123 mg/dL (70-110)
[2023-03-18] MEDS: NYSTATIN 100,000 UNIT/GM POWD 15 GM TOPICAL SCH ×3 (12:55→20:35)
--- NOTE | 2023-03-18 13:13 | P.PN ---
Subjective HISTORY OF PRESENT ILLNESS: This is a 72-year-old male patient of Dr. Rivas as done at medical history of paroxysmal atrial fibrillation, sick sinus syndrome status post pacemaker, hypertension, dyslipidemia. We have been asked to evaluate the patient for A. fib with RVR. Patient apparently had 2 falls with no loss of consciousness. Family passed to the nurse that he has not been eating and not been taking his medication and have had multiple falls at home. Patient was found initially to be in A. fib with RVR at 157 bpm and started on Cardizem drip and heparin drip. Patient is a very poor historian with some underlying confusion/dementia suspected. Patient was previously on amiodarone and Xarelto which appear to have been discontinued since he was last in the office possibly due to falls. EKG atrial fibrillation 157 bpm #2 atrial fibrillation at 111 bpm Chest x-ray: No acute process WBC 16.4, hemoglobin 12.9, platelet count 159. BUN is 72, creatinine initially 3.8 followed by 2.06, potassium 3.8. Magnesium 1.7. Troponin negative 1. Alkaline phosphatase 186 otherwise liver function tests are normal. Home cardiac medications: Losartan 100 mg daily, Toprol-XL 100 mg every 12 hours, Aldactone 25 mg daily Echocardiogram performed 12/2019 revealed EF of 55-60%, mild LVH, RVSP 9.56 mmHg. Cardiac catheterization history and 2012 showed 50% mid LAD, mild irregularities in the RCA, normal left circumflex. Dual chamber pacemaker [employer] placed by Dr. Marcos 09/21/2020 Lexiscan stress test 04/01/2017 revealed fixed defect secondary to soft tissue attenuation. 03/17/2023 Patient is a pleasant 72-year-old male who presented to the hospital with a urinary tract infection and possible sepsis, who also demonstrated atrial fibrillation with rapid ventricular response. IV Cardizem was stopped yesterday, the patient was continued on oral metoprolol at 100 mg twice a day. This does appear to be adequately controlling the patient's heart rate. This morning the patient reports that he's feeling okay. He is denying chest pain, shortness of breath, and heart palpitations. Patient had multiple falls prior to admission, and it is recommended that the patient see physical therapy prior to discharge to determine continued fall risk. Falls may have been secondary to weakness due to atrial fibrillation, and it will need to be determined if the patient is a candidate for anticoagulation therapy. At this time we would continue the heparin drip until a determination can be made by physical therapy if the patient is a high fall risk. If so anticoagulation would be contraindicated. 03/18/2023 Patient examined this morning at the bedside. Patient appears somewhat confused at the time of examination. He denies chest pain or pressure. He denies shortness of breath. Telemetry reveals atrial fibrillation with a heart rate around 110. He remains on IV heparin. He is currently receiving metoprolol succinate 100 mg twice a day. PHYSICAL EXAM: VITAL SIGNS: Reviewed. GENERAL: Well-developed in no acute distress. NECK: Supple. No JVD or thyromegaly LUNGS: Respirations even and unlabored. Lungs essentially clear to auscultation bilaterally. HEART: Tachycardic. Irregular rate and rhythm. S1 and S2 heard. EXTREMITIES: Normal range of motion. No clubbing or cyanosis. Peripheral pulses intact. No lower extremity edema ASSESSMENT: Frequent falls Urinary tract infection Acute kidney injury Paroxysmal atrial fibrillation with RVR History of sick sinus syndrome status post pacemaker implantation Hypertension Hyperlipidemia PLAN: Obtain 2-D echo to assess cardiac structure and function Discontinue losartan to allow for increase in AV tianna blocking agents Continue current dose of metoprolol succinate Begin IV amiodarone bolus and drip per protocol Continue telemetry monitoring Unknown if patient is a good candidate for long-term anticoagulation secondary to frequent falls. Awaiting PT evaluation. Continue IV heparin until a decision has been made regarding oral anticoagulation Further recommendations pending patient's course Nurse practitioner note has been reviewed by physician. Signing provider agrees with the documented findings, assessment, and plan of care. Objective - Vital Signs Vital signs: Vital Signs Temp 97.9 F 03/18/23 04:00 Pulse 60 03/18/23 04:00 Resp 17 03/18/23 04:00 BP 104/52 03/18/23 04:00 Pulse Ox 95 03/18/23 04:00 FiO2 Intake & Output 03/17/23 03/18/23 03/18/23 18:59 06:59 18:59 Intake Total 1060 218.456 786.153 Output Total 500 660 350 Balance 560 -441.544 436.153 Intake: Intake, IV Titration 218.456 66.153 Amount Heparin Sod,Pork in 0.45% 218.456 66.153 NaCl 25,000 unit In 0.45 % NaCl 1 250ml.bag @ 8.96 UNITS/KG/HR 9.998 mls/hr IV .Q24H [facility] Rx#: [id number] Oral 1060 720 Output: Urine 500 660 350 Other: Voiding Method Indwelling Catheter Indwelling Catheter # Voids 1 - Labs CBC & Chem 7: 03/15/23 03:05 03/18/23 08:33 Labs: Abnormal Lab Results - Last 24 Hours (Table) 03/17/23 03/17/23 03/18/23 Range/Units 16:44 20:08 06:04 APTT (22.0-30.0) sec Sodium (137-145) mmol/L Carbon Dioxide (22-30) mmol/L BUN (9-20) mg/dL Creatinine (0.66-1.25) mg/dL Glucose (74-99) mg/dL POC Glucose (mg/dL) 272 H 289 H 139 H (70-110) mg/dL Calcium (8.4-10.2) mg/dL Magnesium (1.6-2.3) mg/dL 03/18/23 03/18/23 03/18/23 Range/Units 08:33 08:33 11:32 APTT 43.8 H (22.0-30.0) sec Sodium 133 L (137-145) mmol/L Carbon Dioxide 21 L (22-30) mmol/L BUN 32 H (9-20) mg/dL Creatinine 1.44 H (0.66-1.25) mg/dL Glucose 144 H (74-99) mg/dL POC Glucose (mg/dL) 123 H (70-110) mg/dL Calcium 7.9 L (8.4-10.2) mg/dL Magnesium 1.5 L (1.6-2.3) mg/dL
--- NOTE | 2023-03-18 13:39 | P.PN ---
Subjective Patient is seen for follow-up for acute kidney injury and chronic kidney disease. Renal function has improved No significant complaints today. Serum creatinine staying at 1.4 mg/dL which is down from 3.8 on admission. Objective - Vital Signs Vital signs: Vital Signs Temp 98.6 F 03/18/23 13:00 Pulse 95 03/18/23 13:00 Resp 18 03/18/23 13:00 BP 114/70 03/18/23 13:00 Pulse Ox 95 03/18/23 13:00 FiO2 Intake & Output 03/17/23 03/18/23 03/18/23 18:59 06:59 18:59 Intake Total 1060 218.456 786.153 Output Total 500 660 350 Balance 560 -441.544 436.153 Intake: Intake, IV Titration 218.456 66.153 Amount Heparin Sod,Pork in 0.45% 218.456 66.153 NaCl 25,000 unit In 0.45 % NaCl 1 250ml.bag @ 8.96 UNITS/KG/HR 9.998 mls/hr IV .Q24H [facility] Rx#: [id number] Oral 1060 720 Output: Urine 500 660 350 Other: Voiding Method Indwelling Catheter Indwelling Catheter Indwelling Catheter # Voids 1 - Exam Patient is awake, comfortable, no acute distress Examination of the heart S1 and S2 Examination of the lungs bilateral breath sounds are heard Abdomen is soft nontender Examination lower extremities shows no significant edema. - Labs CBC & Chem 7: 03/15/23 03:05 03/18/23 08:33 Labs: Abnormal Lab Results - Last 24 Hours (Table) 03/17/23 03/17/23 03/18/23 Range/Units 16:44 20:08 06:04 APTT (22.0-30.0) sec Sodium (137-145) mmol/L Carbon Dioxide (22-30) mmol/L BUN (9-20) mg/dL Creatinine (0.66-1.25) mg/dL Glucose (74-99) mg/dL POC Glucose (mg/dL) 272 H 289 H 139 H (70-110) mg/dL Calcium (8.4-10.2) mg/dL Magnesium (1.6-2.3) mg/dL 03/18/23 03/18/23 03/18/23 Range/Units 08:33 08:33 11:32 APTT 43.8 H (22.0-30.0) sec Sodium 133 L (137-145) mmol/L Carbon Dioxide 21 L (22-30) mmol/L BUN 32 H (9-20) mg/dL Creatinine 1.44 H (0.66-1.25) mg/dL Glucose 144 H (74-99) mg/dL POC Glucose (mg/dL) 123 H (70-110) mg/dL Calcium 7.9 L (8.4-10.2) mg/dL Magnesium 1.5 L (1.6-2.3) mg/dL Assessment and Plan Assessment: 1. Acute kidney injury secondary to vasomotor nephropathy secondary to hemodynamic instability. Further worsened with the use of losartan and Aldactone. Creatinine 3.8 on admission and is 1.44 today. Also component of urinary retention. No hydronephrosis noted kidney ultrasound. 2. Chronic kidney disease stage IIIB with baseline creatinine 1.6-1.8 from October through January 2023. Suspect underlying diabetic kidney disease. 3. A. fib with RVR s/p Cardizem drip. On metoprolol. Cardiology following. 4. Diabetes mellitus. 5. Hyperkalemia secondary to acute kidney injury, acidosis, Aldactone and losartan. Improved with medical management. Now potassium on lower side. 6. Metabolic acidosis secondary to acute kidney injury. Was also on metformin. Also component of IV fluids. Improved. s/p bicarbonate drip. On oral bicarbonate. 7. Urinary retention. Currently has Amaya catheter. On Flomax. 8. Hypomagnesemia from poor intake. Replace. Better. Plan: Continue off of Cozaar as blood pressure remains significantly low and plans to increase AV tianna blocking agents. Can resume as outpatient. Blood pressure allows.
[2023-03-18 16:44] LABS: Glucose,Whole Blood 209 mg/dL (70-110)
--- NOTE | 2023-03-18 17:01 | CA ---
Transthoracic Echo Report Name: Anthony Schafer Age: 72 Gender: M : 1950 Exam Date: 03/18/2023 13:53 Exam Location: [facility] Ht (in): 71 Wt (lb): 246 Ordering Physician: Jyoti Mansfield Attending/Referring Phys: [id number], Donal Licensed Clinical Psychologist Daniel Aguiar Procedure CPT: Indications: LV function, AF Cardiac Hx: Technical Quality: Technically difficult study Contrast 1: Definity Total Dose (mL): 2 Contrast 2: Total Dose (mL): MEASUREMENTS (Male / Female) Normal Values 2D ECHO LV Diastolic Diameter PLAX 4.8 cm 4.2 - 5.9 / 3.9 - 5.3 cm LV Systolic Diameter PLAX 3.0 cm IVS Diastolic Thickness 1.1 cm 0.6 - 1.0 / 0.6 - 0.9 cm LVPW Diastolic Thickness 1.4 cm 0.6 - 1.0 / 0.6 - 0.9 cm LV Relative Wall Thickness 0.5 RV Internal Dim ED PLAX 3.1 cm LVOT Diameter 2.0 cm Aortic Root Diameter 2.0 cm LA Systolic Diameter LX 2.6 cm 3.0 - 4.0 / 2.7 - 3.8 cm LV Diastolic Volume MOD 4C 61.6 cm??? LV Systolic Volume MOD 4C 45.6 cm??? LV Ejection Fraction MOD 4C 25.9 % LV Cardiac Index MOD 4C 659.1 cm???/min???m??? LV Diastolic Length 4C 7.6 cm LV Systolic Length 4C 7.1 cm LA Volume 52.0 cm??? 18 - 58 / 22 - 52 cm??? LA Volume Index 21.6 cm???/m??? 16 - 28 cm???/m??? DOPPLER AV Peak Velocity 116.1 cm/s AV Peak Gradient 5.4 mmHg MV Peak Velocity 117.6 cm/s MV Peak Gradient 5.5 mmHg MV Mean Velocity 62.6 cm/s MV Mean Gradient 2.0 mmHg MV Velocity Time Integral 29.7 cm Mitral E Point Velocity 112.1 cm/s Mitral A Point Velocity 45.4 cm/s Mitral E to A Ratio 2.5 MV Deceleration Time 225.6 ms TR Peak Velocity 165.3 cm/s TR Peak Gradient 10.9 mmHg Right Ventricular Systolic Press 18.4 mmHg FINDINGS Left Ventricle Normal LV size. Mild to moderate concentric LVH. Global hypokenesis. Apical akinesis. Left ventricular ejection fraction is estimated at 20-25 %. Right Ventricle Upper limits of normal in size. Right Atrium Mild right atrial dilatation. Left Atrium Mild left atrial dilatation. LA volume index= 23ml/m2 Mitral Valve Structurally normal mitral valve. Trace MR. Aortic Valve Aortic valve not well visualized. Mild AV calcification. No aortic stenosis. No aortic regurgitation. Tricuspid Valve Structurally normal tricuspid valve. Trace TR. Pulmonic Valve Not well visualized. No pulmonic regurgitation. Pericardium Not well visualized. Aorta Normal size aortic root. CONCLUSIONS Severe LV systolic dysfunction with an ejection fraction of 20-25% Apical hypokinesis Previewed by: Dr. Jigar Euceda MD (Electronically Signed) Final Date: 18 March 2023 17:00
[2023-03-18 20:20] LABS: Glucose,Whole Blood 182 mg/dL (70-110)
[2023-03-18] MEDS: AMIODARONE 450 MG in DEXTROSE 5% IN WATER 250 ML IV SCH ×2 (20:33)
--- NOTE | 2023-03-18 22:41 | PN ---
PROGRESS NOTE DATE OF SERVICE: 03/18/2023 CHIEF COMPLAINT: Urinary tract infection, sepsis, general debility, and weakness being nonambulatory. HISTORY OF PRESENT ILLNESS: This gentleman is the same. He is bedridden. He is not having any abdominal pain, chest pain, shortness of breath, fever, or chills, etc. PHYSICAL EXAMINATION: CHEST: Clear. CARDIAC: Normal. ABDOMEN: Protuberant, soft. IMPRESSION: 1. Urinary tract infection. 2. Septicemia. 3. General debility with inability to ambulate. 4. Insulin-dependent diabetes. 5. Hypertension. PLAN: Continue to stabilize and await discharge plan. MMODL / IJN: [id number] /
[2023-03-19] MEDS: AMIODARONE 450 MG in DEXTROSE 5% IN WATER 250 ML IV SCH ×4 (02:16→06:48)
[2023-03-19] MEDS: HEPARIN SOD,PORK IN 0.45% NACL 25,000 UNIT in 0.45% NACL 1 250ML.BAG IV SCH (02:18)
[2023-03-19 05:36] LABS: Glucose,Whole Blood 207 mg/dL (70-110)
[2023-03-19] MEDS: PANTOPRAZOLE 40 MG TABLET PO SCH (06:05)
[2023-03-19] MEDS: INSULIN DETEMIR (LEVEMIR) 100 UNIT/ML SYR SQ SCH (06:06)
[2023-03-19] MEDS: INSULIN ASPART (NovoLOG) 100 UNIT/ML VIAL SQ SCH ×4 (06:06→20:35)
[2023-03-19] MEDS: LOSARTAN 25 MG TAB PO SCH (08:20)
[2023-03-19] MEDS: LINAGLIPTIN 5 MG TABLET PO SCH (08:40)
[2023-03-19] MEDS: METOPROLOL SUCCINATE (ER) 100 MG TAB.ER.24H PO SCH ×2 (08:40→20:34)
[2023-03-19] MEDS: MAGNESIUM OXIDE 400 MG TAB PO SCH ×2 (08:40→20:34)
[2023-03-19] MEDS: SODIUM BICARBONATE TAB 650 MG TAB PO SCH ×2 (08:40→20:34)
[2023-03-19] MEDS: TAMSULOSIN 0.4 MG CAP.ER.24H PO SCH (08:40)
[2023-03-19] MEDS: NYSTATIN 100,000 UNIT/GM POWD 15 GM TOPICAL SCH ×3 (08:40→20:34)
--- NOTE | 2023-03-19 11:27 | P.PN ---
Subjective Patient is seen for follow-up for acute kidney injury and chronic kidney disease. Renal function has improved No significant complaints today. Serum creatinine staying at 1.4 mg/dL which is down from 3.8 on admission. Objective - Vital Signs Vital signs: Vital Signs Temp 98.5 F 03/19/23 08:20 Pulse 79 03/19/23 08:20 Resp 16 03/19/23 08:20 BP 114/69 03/19/23 08:20 Pulse Ox 97 03/19/23 08:20 FiO2 Intake & Output 03/18/23 03/19/23 03/19/23 18:59 06:59 18:59 Intake Total 1556.153 279.127 355 Output Total 625 450 Balance 931.153 -170.873 355 Intake: Intake, IV Titration 66.153 279.127 Amount Amiodarone 450 mg In 95.28 Dextrose 5% in Water 250 ml @ 0.5 MG/MIN 16.667 mls/hr IV .Q15H [facility] Rx#: [id number] Heparin Sod,Pork in 0.45% 66.153 183.847 NaCl 25,000 unit In 0.45 % NaCl 1 250ml.bag @ 8.96 UNITS/KG/HR 9.998 mls/hr IV .Q24H [facility] Rx#: [id number] Oral 1490 355 Output: Urine 625 450 Other: Voiding Method Indwelling Catheter Indwelling Catheter Indwelling Catheter # Voids 1 - Exam Patient is awake, comfortable, no acute distress Examination of the heart S1 and S2 Examination of the lungs bilateral breath sounds are heard Abdomen is soft nontender Examination lower extremities shows no significant edema. - Labs CBC & Chem 7: 03/15/23 03:05 03/18/23 08:33 Labs: Abnormal Lab Results - Last 24 Hours (Table) 03/18/23 03/18/23 03/18/23 Range/Units 11:32 16:43 19:36 APTT 52.2 H (22.0-30.0) sec POC Glucose (mg/dL) 123 H 209 H (70-110) mg/dL 03/18/23 03/19/23 03/19/23 Range/Units 20:18 05:33 08:56 APTT 57.6 H (22.0-30.0) sec POC Glucose (mg/dL) 182 H 207 H (70-110) mg/dL Microbiology - Last 24 Hours (Table) 03/13/23 18:12 Blood Culture - Final Blood 03/13/23 18:09 Blood Culture - Final Blood Assessment and Plan Assessment: 1. Acute kidney injury secondary to vasomotor nephropathy secondary to hemodynamic instability. Further worsened with the use of losartan and Aldactone. Creatinine 3.8 on admission and is 1.44 yesterday. Also component of urinary retention. No hydronephrosis noted kidney ultrasound. 2. Chronic kidney disease stage IIIB with baseline creatinine 1.6-1.8 from October through January 2023. Suspect underlying diabetic kidney disease. 3. A. fib with RVR s/p Cardizem drip. On metoprolol. Cardiology following. 4. Diabetes mellitus. 5. Hyperkalemia secondary to acute kidney injury, acidosis, Aldactone and losartan. Improved with medical management. Now potassium on lower side. 6. Metabolic acidosis secondary to acute kidney injury. Was also on metformin. Also component of IV fluids. Improved. s/p bicarbonate drip. On oral bicarbonate. 7. Urinary retention. Currently has Amaya catheter. On Flomax. 8. Hypomagnesemia from poor intake. Replace. Better. Plan: Continue off of Cozaar as blood pressure remains significantly low and plans to increase AV tianna blocking agents. Can resume as outpatient if Blood pressure allows.
[2023-03-19 11:36] LABS: Glucose,Whole Blood 205 mg/dL (70-110)
[2023-03-19] MEDS: AMIODARONE 200 MG TAB PO SCH ×2 (12:11→20:34)
[2023-03-19 13:28] VITALS: BMI 34.2
--- NOTE | 2023-03-19 13:31 | P.PN ---
Subjective HISTORY OF PRESENT ILLNESS: This is a 72-year-old male patient of Dr. Rivas as done at medical history of paroxysmal atrial fibrillation, sick sinus syndrome status post pacemaker, hypertension, dyslipidemia. We have been asked to evaluate the patient for A. fib with RVR. Patient apparently had 2 falls with no loss of consciousness. Family passed to the nurse that he has not been eating and not been taking his medication and have had multiple falls at home. Patient was found initially to be in A. fib with RVR at 157 bpm and started on Cardizem drip and heparin drip. Patient is a very poor historian with some underlying confusion/dementia suspected. Patient was previously on amiodarone and Xarelto which appear to have been discontinued since he was last in the office possibly due to falls. EKG atrial fibrillation 157 bpm #2 atrial fibrillation at 111 bpm Chest x-ray: No acute process WBC 16.4, hemoglobin 12.9, platelet count 159. BUN is 72, creatinine initially 3.8 followed by 2.06, potassium 3.8. Magnesium 1.7. Troponin negative 1. Alkaline phosphatase 186 otherwise liver function tests are normal. Home cardiac medications: Losartan 100 mg daily, Toprol-XL 100 mg every 12 hours, Aldactone 25 mg daily Echocardiogram performed 12/2019 revealed EF of 55-60%, mild LVH, RVSP 9.56 mmHg. Cardiac catheterization history and 2012 showed 50% mid LAD, mild irregularities in the RCA, normal left circumflex. Dual chamber pacemaker Medtronic placed by Dr. Marcos 09/21/2020 Lexiscan stress test 04/01/2017 revealed fixed defect secondary to soft tissue attenuation. 03/17/2023 Patient is a pleasant 72-year-old male who presented to the hospital with a urinary tract infection and possible sepsis, who also demonstrated atrial fibrillation with rapid ventricular response. IV Cardizem was stopped yesterday, the patient was continued on oral metoprolol at 100 mg twice a day. This does appear to be adequately controlling the patient's heart rate. This morning the patient reports that he's feeling okay. He is denying chest pain, shortness of breath, and heart palpitations. Patient had multiple falls prior to admission, and it is recommended that the patient see physical therapy prior to discharge to determine continued fall risk. Falls may have been secondary to weakness due to atrial fibrillation, and it will need to be determined if the patient is a candidate for anticoagulation therapy. At this time we would continue the heparin drip until a determination can be made by physical therapy if the patient is a high fall risk. If so anticoagulation would be contraindicated. 03/18/2023 Patient examined this morning at the bedside. Patient appears somewhat confused at the time of examination. He denies chest pain or pressure. He denies shortness of breath. Telemetry reveals atrial fibrillation with a heart rate around 110. He remains on IV heparin. He is currently receiving metoprolol succinate 100 mg twice a day. 03/19/2022 Patient examined this morning at the bedside. He currently denies chest pain or pressure. He denies shortness of breath. Telemetry reveals sinus mechanism. He is currently on IV heparin and IV amiodarone. He was evaluated by physical therapy yesterday and deemed to be a high risk for falls. Echocardiogram completed revealing ejection fraction 20-25% with apical hypokinesis. PHYSICAL EXAM: VITAL SIGNS: Reviewed. GENERAL: Well-developed in no acute distress. NECK: Supple. No JVD or thyromegaly LUNGS: Respirations even and unlabored. Lungs essentially clear to auscultation bilaterally. HEART: Regular rate and rhythm. S1 and S2 heard. EXTREMITIES: Normal range of motion. No clubbing or cyanosis. Peripheral pulses intact. No lower extremity edema ASSESSMENT: Frequent falls Urinary tract infection Acute kidney injury Paroxysmal atrial fibrillation with RVR History of sick sinus syndrome status post pacemaker implantation Hypertension Hyperlipidemia Cardiomyopathy, ejection fraction 20%, ischemic versus nonischemic PLAN: Continue current cardiac medications Discontinue IV heparin. Patient was evaluated by physical therapy and found to be high risk for falls and high risk to be placed on anticoagulation Discontinue IV amiodarone. Begin oral amiodarone 200 mg twice a day. Decrease to 200 mg daily after 1 week Losartan discontinued yesterday to allow for increase in beta blockers. Will reevaluate on an outpatient basis to resume Patient will require cardiac catheterization due to cardiomyopathy. Timing to be determined. Further recommendations pending patient's course Nurse practitioner note has been reviewed by physician. Signing provider agrees with the documented findings, assessment, and plan of care. Objective - Vital Signs Vital signs: Vital Signs Temp 98.5 F 03/19/23 08:20 Pulse 79 03/19/23 08:20 Resp 16 03/19/23 08:20 BP 114/69 03/19/23 08:20 Pulse Ox 97 03/19/23 08:20 FiO2 Intake & Output 03/18/23 03/19/23 03/19/23 18:59 06:59 18:59 Intake Total 1556.153 279.127 355 Output Total 625 450 Balance 931.153 -170.873 355 Weight 111.584 kg Intake: Intake, IV Titration 66.153 279.127 Amount Amiodarone 450 mg In 95.28 Dextrose 5% in Water 250 ml @ 0.5 MG/MIN 16.667 mls/hr IV .Q15H [facility] Rx#: [id number] Heparin Sod,Pork in 0.45% 66.153 183.847 NaCl 25,000 unit In 0.45 % NaCl 1 250ml.bag @ 8.96 UNITS/KG/HR 9.998 mls/hr IV .Q24H [facility] Rx#: [id number] Oral 1490 355 Output: Urine 625 450 Other: Voiding Method Indwelling Catheter Indwelling Catheter Indwelling Catheter # Voids 1 - Labs CBC & Chem 7: 03/15/23 03:05 03/18/23 08:33 Labs: Abnormal Lab Results - Last 24 Hours (Table) 03/18/23 03/18/23 03/18/23 Range/Units 16:43 19:36 20:18 APTT 52.2 H (22.0-30.0) sec POC Glucose (mg/dL) 209 H 182 H (70-110) mg/dL 03/19/23 03/19/23 03/19/23 Range/Units 05:33 08:56 11:34 APTT 57.6 H (22.0-30.0) sec POC Glucose (mg/dL) 207 H 205 H (70-110) mg/dL Microbiology - Last 24 Hours (Table) 03/13/23 18:12 Blood Culture - Final Blood 03/13/23 18:09 Blood Culture - Final Blood
--- NOTE | 2023-03-19 14:26 | DS ---
DISCHARGE SUMMARY CHIEF COMPLAINT: Frequent falling and general debility and weakness. HISTORY OF PRESENT ILLNESS AND PHYSICAL EXAMINATION: Details of this man's history and physical can be found in the initial workup. LABORATORY STUDIES: Details of which can be found in the laboratory section of his chart. COURSE IN THE HOSPITAL: After admission, he was placed on bedrest, started on intravenous fluids. He was seen by OT and PT. It was felt that he could not return home because as soon as he left [facility], he went home and started to fall. In the hospital, his insulins were adjusted to control his blood sugars and arrangements were eventually made for him to go to [facility]. FINAL DIAGNOSES: 1. General debility and weakness. 2. Frequent falling. 3. Uncontrolled insulin-dependent diabetes mellitus. OPERATIONS: None. CONSULTATIONS: None. He is improved. ALISHA / ROBERTO: [id number] /
[2023-03-19 16:52] LABS: Glucose,Whole Blood 212 mg/dL (70-110)
[2023-03-19 20:23] LABS: Glucose,Whole Blood 150 mg/dL (70-110)
[2023-03-20 06:05] LABS: Glucose,Whole Blood 154 mg/dL (70-110)
[2023-03-20] MEDS: INSULIN ASPART (NovoLOG) 100 UNIT/ML VIAL SQ SCH ×4 (06:23→20:22)
[2023-03-20] MEDS: PANTOPRAZOLE 40 MG TABLET PO SCH (06:23)
[2023-03-20] MEDS: METOPROLOL SUCCINATE (ER) 100 MG TAB.ER.24H PO SCH ×2 (10:05→20:21)
[2023-03-20] MEDS: MAGNESIUM OXIDE 400 MG TAB PO SCH ×2 (10:05→20:22)
[2023-03-20] MEDS: TAMSULOSIN 0.4 MG CAP.ER.24H PO SCH (10:05)
[2023-03-20] MEDS: SODIUM BICARBONATE TAB 650 MG TAB PO SCH ×2 (10:05→20:21)
[2023-03-20] MEDS: AMIODARONE 200 MG TAB PO SCH ×2 (10:05→20:22)
[2023-03-20] MEDS: LINAGLIPTIN 5 MG TABLET PO SCH (10:05)
[2023-03-20] MEDS: INSULIN DETEMIR (LEVEMIR) 100 UNIT/ML SYR SQ SCH (10:05)
[2023-03-20] MEDS: NYSTATIN 100,000 UNIT/GM POWD 15 GM TOPICAL SCH ×3 (10:06→20:24)
[2023-03-20] MEDS ORDERED: ALPRAZolam 0.5 MG TAB PO PRN (10:10)
[2023-03-20] MEDS ORDERED: NITROGLYCERIN SL TABS 0.4 MG TAB SUBLINGUAL PRN (10:10)
[2023-03-20] MEDS ORDERED: ATORVASTATIN 80 MG TAB PO STA (10:10)
[2023-03-20] MEDS ORDERED: ASPIRIN 325 MG TAB PO STA (10:10)
[2023-03-20] MEDS ORDERED: ALPRAZolam 0.25 MG TAB PO PRN (10:10)
[2023-03-20] MEDS: SODIUM CHLORIDE 0.9% 1,000 ML in EMPTY BAG 1 BAG IV SCH ×2 (10:47→17:54)
[2023-03-20 11:34] LABS: Glucose,Whole Blood 100 mg/dL (70-110)
[2023-03-20] MEDS ORDERED: MIDAZOLAM 2 MG/2 ML VIAL IVP ONE (12:11)
[2023-03-20] MEDS ORDERED: LIDOCAINE 1% INJ 10MG/ML (30 ML VIAL-PF) SQ ONE (12:12)
[2023-03-20] MEDS ORDERED: VERAPAMIL SYRINGE (5 MG/10 ML) INTRAARTER ONE (12:13)
[2023-03-20] MEDS ORDERED: HEPARIN SODIUM 1,000 UN/ML (10ML VL) IV ONE (12:14)
[2023-03-20] MEDS ORDERED: SODIUM CHLORIDE 0.9% 1,000 ML IV ONE (12:15)
--- NOTE | 2023-03-20 12:21 | P.PN ---
Subjective Patient is seen for follow-up for acute kidney injury and chronic kidney disease. Renal function has improved No significant complaints today. Serum creatinine staying at 1.4 mg/dL which is down from 3.8 on admission. Labs are pending from today Objective - Vital Signs Vital signs: Vital Signs Temp 98.5 F 03/20/23 08:05 Pulse 120 H 03/20/23 08:05 Resp 16 03/20/23 08:05 BP 131/71 03/20/23 08:05 Pulse Ox 98 03/20/23 08:05 FiO2 Intake & Output 03/19/23 03/20/23 03/20/23 18:59 06:59 18:59 Intake Total 885.704 Output Total 300 350 400 Balance 585.704 -350 -400 Weight 111.584 kg Intake: Intake, IV Titration 175.704 Amount Heparin Sod,Pork in 0.45% 175.704 NaCl 25,000 unit In 0.45 % NaCl 1 250ml.bag @ 8.96 UNITS/KG/HR 9.998 mls/hr IV .Q24H [facility] Rx#: [id number] Oral 710 Output: Urine 300 350 400 Other: Voiding Method Indwelling Catheter Indwelling Catheter Indwelling Catheter - Exam Patient is awake, comfortable, no acute distress Examination of the heart S1 and S2 Examination of the lungs bilateral breath sounds are heard Abdomen is soft nontender Examination lower extremities shows no significant edema. - Labs CBC & Chem 7: 03/15/23 03:05 03/18/23 08:33 Labs: Abnormal Lab Results - Last 24 Hours (Table) 03/19/23 03/19/23 03/20/23 Range/Units 16:50 20:22 06:02 POC Glucose (mg/dL) 212 H 150 H 154 H (70-110) mg/dL Assessment and Plan Assessment: 1. Acute kidney injury secondary to vasomotor nephropathy secondary to hemodynamic instability. Further worsened with the use of losartan and Aldactone. Creatinine 3.8 on admission and is down to 1.4. Also component of urinary retention. No hydronephrosis noted kidney ultrasound. 2. Chronic kidney disease stage IIIB with baseline creatinine 1.6-1.8 from October through January 2023. Suspect underlying diabetic kidney disease. 3. A. fib with RVR s/p Cardizem drip. On metoprolol. Cardiology following. 4. Diabetes mellitus. 5. Hyperkalemia secondary to acute kidney injury, acidosis, Aldactone and [place] m[place]. Improved with medical management. Now potassium on lower side. 6. Metabolic acidosis secondary to acute kidney injury. Was also on metformin. Also component of IV fluids. Improved. s/p bicarbonate drip. On oral bicarbonate. 7. Urinary retention. Currently has Amaya catheter. On Flomax. 8. Hypomagnesemia from poor intake. Replace. Better. Plan: Continue off of Cozaar as blood pressure remains significantly low and plans to increase AV tianna blocking agents. Can resume as outpatient if Blood pressure allows. Follow-up on labs from today
[2023-03-20] MEDS ORDERED: IOPAMIDOL-370 100ML BTL INJ ONE (12:22)
[2023-03-20] MEDS ORDERED: RX INFO: IV CONTRAST WAS GIVEN 1 EACH MISC MISCELLANE PRN (12:27)
[2023-03-20] MEDS ORDERED: SODIUM CHLORIDE 0.9% 1,000 ML IV SCH (12:30)
--- NOTE | 2023-03-20 12:32 | P.PCN ---
Description of Procedure: CARDIAC CATHETERIZATION PERFORMING PHYSICIAN: Hank Maldonado MD, RPVI PROCEDURE PERFORMED: 1. Selective right and left coronary angiogram 2. Ultrasound-guided access of the right radial artery INDICATION: Cardiomyopathy COMPLICATION: None APPROACH: Right radial artery LEVEL OF SEDATION: Moderate with a sedation length of 11 minutes PROCEDURE DESCRIPTION: After obtaining an informed consent, the patient was brought to cardiac director of cath lab. Local anesthesia was performed using lidocaine subcutaneously. The right radial artery was cannulated using Seldinger technique, the guidewire passed easily, following that we advanced a 5-Marshallese sheath dilator assembly, the wire and dilator were removed and sheath was flushed. Following that, 2 mg of verapamil along with 3000 unit heparin were given. Selective right and left coronary angiogram using a 6-Marshallese JR4 and JL 3.5 catheters. The procedure was completed there was no complication. SELECTIVE CORONARY ANGIOGRAM: The right coronary artery: Large-caliber vessel and a dominant vessel. The RCA has mild to moderate diffuse disease was no high-grade stenosis identified Left main: Is angiographically normal. Bifurcates into an LCx and LAD The left circumflex: The LCx has intermediate lesion in the proximal portion appears to be in the range of 40-50% only. Gives rises into OM1 which has also mild disease. The left anterior descending artery: Large caliber vessel. The LAD in the midportion has mild disease by the bifurcation of a medium-sized diagonal branch which has severe ostial lesion CONCLUSION: 1. Severe ostial disease involving a medium caliber diagonal branch 2. Intermediate disease involving the proximal to mid left circumflex POSTPROCEDURE MANAGEMENT: Medical treatment
[2023-03-20 12:44] LABS: Glucose,Whole Blood 100 mg/dL (70-110)
[2023-03-20 14:54] LABS: African American GFR (CKD) 89 (>60 ml/min/1.73 sqM); Anion Gap 6 mmol/L; Blood Urea Nitrogen 24 mg/dL (9-20); Carbon Dioxide 20 mmol/L (22-30); Chloride 109 mmol/L (98-107); Glucose 104 mg/dL (74-99); Non-African American GFR(CKD) 77 (>60 ml/min/1.73 sqM); Potassium 2.8 mmol/L (3.5-5.1); Sodium 135 mmol/L (137-145)
[2023-03-20 14:58] LABS: Calcium 5.9 mg/dL (8.4-10.2)
[2023-03-20 16:47] LABS: Glucose,Whole Blood 117 mg/dL (70-110)
[2023-03-20 19:55] LABS: Glucose,Whole Blood 190 mg/dL (70-110)
[2023-03-20 21:24] LABS: African American GFR (CKD) 56 (>60 ml/min/1.73 sqM); Anion Gap 8 mmol/L; Blood Urea Nitrogen 33 mg/dL (9-20); Calcium 7.7 mg/dL (8.4-10.2); Carbon Dioxide 23 mmol/L (22-30); Chloride 98 mmol/L (98-107); Glucose 165 mg/dL (74-99); Magnesium 1.5 mg/dL (1.6-2.3); Non-African American GFR(CKD) 49 (>60 ml/min/1.73 sqM); Sodium 129 mmol/L (137-145)
[2023-03-21 06:01] LABS: Glucose,Whole Blood 163 mg/dL (70-110)
[2023-03-21] MEDS: SODIUM CHLORIDE 0.9% 1,000 ML in EMPTY BAG 1 BAG IV SCH ×3 (06:01→20:29)
[2023-03-21] MEDS: PANTOPRAZOLE 40 MG TABLET PO SCH (06:06)
[2023-03-21] MEDS: INSULIN DETEMIR (LEVEMIR) 100 UNIT/ML SYR SQ SCH (06:06)
[2023-03-21] MEDS: INSULIN ASPART (NovoLOG) 100 UNIT/ML VIAL SQ SCH ×4 (06:06→20:26)
[2023-03-21] MEDS ORDERED: HEPARIN SODIUM,PORCINE (1 ML) 2,500 UNIT in SODIUM CHLORIDE 0.9% 250 ML IRRIGATION PRN (07:00)
[2023-03-21] MEDS ORDERED: HEPARIN SODIUM,PORCINE 10,000 UNIT in SODIUM CHLORIDE 0.9% 1,000 ML IRRIGATION PRN (07:00)
[2023-03-21] MEDS: SODIUM BICARBONATE TAB 650 MG TAB PO SCH ×2 (09:17→20:26)
[2023-03-21] MEDS: LINAGLIPTIN 5 MG TABLET PO SCH (09:17)
[2023-03-21] MEDS: NYSTATIN 100,000 UNIT/GM POWD 15 GM TOPICAL SCH ×3 (09:17→20:28)
[2023-03-21] MEDS: ASPIRIN 81 MG PO SCH (09:17)
[2023-03-21] MEDS: METOPROLOL SUCCINATE (ER) 100 MG TAB.ER.24H PO SCH ×2 (09:17→20:26)
[2023-03-21] MEDS: AMIODARONE 200 MG TAB PO SCH ×2 (09:17→20:26)
[2023-03-21] MEDS: TAMSULOSIN 0.4 MG CAP.ER.24H PO SCH (09:17)
[2023-03-21] MEDS: MAGNESIUM OXIDE 400 MG TAB PO SCH ×2 (09:17→20:26)
[2023-03-21 11:32] LABS: Glucose,Whole Blood 205 mg/dL (70-110)
--- NOTE | 2023-03-21 12:27 | P.PN ---
Subjective Patient is seen for follow-up for acute kidney injury and chronic kidney disease. Renal function has improved No significant complaints today. Serum creatinine staying at 1.4 mg/dL which is down from 3.8 on admission. Status post cardiac catheterization on 03/20/2023 with plans for medical management. Objective - Vital Signs Vital signs: Vital Signs Temp 97.8 F 03/21/23 03:02 Pulse 84 03/21/23 03:02 Resp 18 03/21/23 03:02 BP 129/70 03/21/23 03:02 Pulse Ox 98 03/21/23 03:02 FiO2 Intake & Output 03/20/23 03/21/23 03/21/23 18:59 06:59 18:59 Intake Total 170 120 Output Total 625 300 Balance -455 -300 120 Intake: IV 50 Oral 120 120 Output: Urine 625 300 Other: Voiding Method Indwelling Catheter Indwelling Catheter - Exam Patient is awake, comfortable, no acute distress Examination of the heart S1 and S2 Examination of the lungs bilateral breath sounds are heard Abdomen is soft nontender Examination lower extremities shows 1+ edema. - Labs CBC & Chem 7: 03/15/23 03:05 03/20/23 20:38 Labs: Abnormal Lab Results - Last 24 Hours (Table) 03/20/23 03/20/23 03/20/23 Range/Units 14:19 16:39 17:32 Sodium 135 L (137-145) mmol/L Potassium 2.8 L (3.5-5.1) mmol/L Chloride 109 H (98-107) mmol/L Carbon Dioxide 20 L (22-30) mmol/L BUN 24 H (9-20) mg/dL Creatinine (0.66-1.25) mg/dL Glucose 104 H (74-99) mg/dL POC Glucose (mg/dL) 117 H (70-110) mg/dL Calcium 5.9 L* 7.8 L (8.4-10.2) mg/dL Magnesium (1.6-2.3) mg/dL 03/20/23 03/20/23 03/21/23 Range/Units 19:54 20:38 05:59 Sodium 129 L (137-145) mmol/L Potassium (3.5-5.1) mmol/L Chloride (98-107) mmol/L Carbon Dioxide (22-30) mmol/L BUN 33 H (9-20) mg/dL Creatinine 1.43 H (0.66-1.25) mg/dL Glucose 165 H (74-99) mg/dL POC Glucose (mg/dL) 190 H 163 H (70-110) mg/dL Calcium 7.7 L (8.4-10.2) mg/dL Magnesium 1.5 L (1.6-2.3) mg/dL 03/21/23 Range/Units 11:30 Sodium (137-145) mmol/L Potassium (3.5-5.1) mmol/L Chloride (98-107) mmol/L Carbon Dioxide (22-30) mmol/L BUN (9-20) mg/dL Creatinine (0.66-1.25) mg/dL Glucose (74-99) mg/dL POC Glucose (mg/dL) 205 H (70-110) mg/dL Calcium (8.4-10.2) mg/dL Magnesium (1.6-2.3) mg/dL Assessment and Plan Assessment: 1. Acute kidney injury secondary to vasomotor nephropathy secondary to hemodynamic instability. Further worsened with the use of losartan and Aldactone. Creatinine 3.8 on admission and is down to 1.4. Also component of urinary retention. No hydronephrosis noted kidney ultrasound. 2. Chronic kidney disease stage IIIB with baseline creatinine 1.6-1.8 from October through January 2023. Suspect underlying diabetic kidney disease. 3. A. fib with RVR s/p Cardizem drip. On metoprolol. Cardiology following. 4. Diabetes mellitus. 5. Hyperkalemia secondary to acute kidney injury, acidosis, Aldactone and losartan. Improved with medical management. Now potassium on lower side. 6. Metabolic acidosis secondary to acute kidney injury. Was also on metformin. Also component of IV fluids. Improved. s/p bicarbonate drip. On oral bicarbonate. 7. Urinary retention. Currently has Amaya catheter. On Flomax. 8. Hypomagnesemia from poor intake. Replace. Better. Plan: Continue off of Cozaar as blood pressure remains significantly low and plans to increase AV tianna blocking agents. Can resume as outpatient if Blood pressure allows. If patient is discharged he will need follow-up as outpatient and repeat labs to be done in 2-3 days post discharge given the IV contrast administered yesterday for cardiac cath.
--- NOTE | 2023-03-21 13:31 | P.PN ---
Subjective HISTORY OF PRESENT ILLNESS: This is a 72-year-old male patient of Dr. Rivas as done at medical history of paroxysmal atrial fibrillation, sick sinus syndrome status post pacemaker, hypertension, dyslipidemia. We have been asked to evaluate the patient for A. fib with RVR. Patient apparently had 2 falls with no loss of consciousness. Family passed to the nurse that he has not been eating and not been taking his medication and have had multiple falls at home. Patient was found initially to be in A. fib with RVR at 157 bpm and started on Cardizem drip and heparin drip. Patient is a very poor historian with some underlying confusion/dementia suspected. Patient was previously on amiodarone and Xarelto which appear to have been discontinued since he was last in the office possibly due to falls. EKG atrial fibrillation 157 bpm #2 atrial fibrillation at 111 bpm Chest x-ray: No acute process WBC 16.4, hemoglobin 12.9, platelet count 159. BUN is 72, creatinine initially 3.8 followed by 2.06, potassium 3.8. Magnesium 1.7. Troponin negative 1. Alkaline phosphatase 186 otherwise liver function tests are normal. Home cardiac medications: Losartan 100 mg daily, Toprol-XL 100 mg every 12 hours, Aldactone 25 mg daily Echocardiogram performed 12/2019 revealed EF of 55-60%, mild LVH, RVSP 9.56 mmHg. Cardiac catheterization history and 2012 showed 50% mid LAD, mild irregularities in the RCA, normal left circumflex. Dual chamber pacemaker Medtronic placed by Dr. Marcos 09/21/2020 Lexiscan stress test 04/01/2017 revealed fixed defect secondary to soft tissue attenuation. 03/17/2023 Patient is a pleasant 72-year-old male who presented to the hospital with a urinary tract infection and possible sepsis, who also demonstrated atrial fibrillation with rapid ventricular response. IV Cardizem was stopped yesterday, the patient was continued on oral metoprolol at 100 mg twice a day. This does appear to be adequately controlling the patient's heart rate. This morning the patient reports that he's feeling okay. He is denying chest pain, shortness of breath, and heart palpitations. Patient had multiple falls prior to admission, and it is recommended that the patient see physical therapy prior to discharge to determine continued fall risk. Falls may have been secondary to weakness due to atrial fibrillation, and it will need to be determined if the patient is a candidate for anticoagulation therapy. At this time we would continue the heparin drip until a determination can be made by physical therapy if the patient is a high fall risk. If so anticoagulation would be contraindicated. 03/18/2023 Patient examined this morning at the bedside. Patient appears somewhat confused at the time of examination. He denies chest pain or pressure. He denies shortness of breath. Telemetry reveals atrial fibrillation with a heart rate around 110. He remains on IV heparin. He is currently receiving metoprolol succinate 100 mg twice a day. 03/19/2022 Patient examined this morning at the bedside. He currently denies chest pain or pressure. He denies shortness of breath. Telemetry reveals sinus mechanism. He is currently on IV heparin and IV amiodarone. He was evaluated by physical therapy yesterday and deemed to be a high risk for falls. Echocardiogram completed revealing ejection fraction 20-25% with apical hypokinesis. 03/21/2023 Patient examined this morning. He is sitting up in the chair. He denies chest pain or pressure. He denies shortness of breath. Telemetry reveals atrial fibrillation with controlled ventricular rate. He is status post cardiac catheterization yesterday revealing severe ostial disease involving medium caliber diagonal branch and intermediate disease involving proximal to mid left circumflex. Medical management was recommended. PHYSICAL EXAM: VITAL SIGNS: Reviewed. GENERAL: Well-developed in no acute distress. NECK: Supple. No JVD or thyromegaly LUNGS: Respirations even and unlabored. Lungs essentially clear to auscultation bilaterally. HEART: Regular rate and rhythm. S1 and S2 heard. EXTREMITIES: Normal range of motion. No clubbing or cyanosis. Peripheral pulses intact. No lower extremity edema ASSESSMENT: Frequent falls Urinary tract infection Acute kidney injury Paroxysmal atrial fibrillation with RVR History of sick sinus syndrome status post pacemaker implantation Hypertension Hyperlipidemia Cardiomyopathy, ejection fraction 20%, ischemic Coronary artery disease, status post cardiac catheterization as above PLAN: Continue current cardiac medications Patient was evaluated by physical therapy and found to be high risk for falls and high risk to be placed on anticoagulation Continue oral amiodarone 200 mg twice a day. Decrease to 200 mg daily after 1 week Losartan discontinued to allow for increase in beta blockers. Will reevaluate on an outpatient basis to resume Patient may be discharged today from a cardiac standpoint He is to follow-up post discharge in the office Nurse practitioner note has been reviewed by physician. Signing provider agrees with the documented findings, assessment, and plan of care. Objective - Vital Signs Vital signs: Vital Signs Temp 97.8 F 03/21/23 03:02 Pulse 84 03/21/23 03:02 Resp 18 03/21/23 03:02 BP 129/70 03/21/23 03:02 Pulse Ox 98 03/21/23 03:02 FiO2 Intake & Output 03/20/23 03/21/23 03/21/23 18:59 06:59 18:59 Intake Total 170 600 Output Total 625 300 Balance -455 -300 600 Intake: IV 50 Oral 120 600 Output: Urine 625 300 Other: Voiding Method Indwelling Catheter Indwelling Catheter - Labs CBC & Chem 7: 03/15/23 03:05 03/20/23 20:38 Labs: Abnormal Lab Results - Last 24 Hours (Table) 03/20/23 03/20/23 03/20/23 Range/Units 14:19 16:39 17:32 Sodium 135 L (137-145) mmol/L Potassium 2.8 L (3.5-5.1) mmol/L Chloride 109 H (98-107) mmol/L Carbon Dioxide 20 L (22-30) mmol/L BUN 24 H (9-20) mg/dL Creatinine (0.66-1.25) mg/dL Glucose 104 H (74-99) mg/dL POC Glucose (mg/dL) 117 H (70-110) mg/dL Calcium 5.9 L* 7.8 L (8.4-10.2) mg/dL Magnesium (1.6-2.3) mg/dL 03/20/23 03/20/23 03/21/23 Range/Units 19:54 20:38 05:59 Sodium 129 L (137-145) mmol/L Potassium (3.5-5.1) mmol/L Chloride (98-107) mmol/L Carbon Dioxide (22-30) mmol/L BUN 33 H (9-20) mg/dL Creatinine 1.43 H (0.66-1.25) mg/dL Glucose 165 H (74-99) mg/dL POC Glucose (mg/dL) 190 H 163 H (70-110) mg/dL Calcium 7.7 L (8.4-10.2) mg/dL Magnesium 1.5 L (1.6-2.3) mg/dL 03/21/23 Range/Units 11:30 Sodium (137-145) mmol/L Potassium (3.5-5.1) mmol/L Chloride (98-107) mmol/L Carbon Dioxide (22-30) mmol/L BUN (9-20) mg/dL Creatinine (0.66-1.25) mg/dL Glucose (74-99) mg/dL POC Glucose (mg/dL) 205 H (70-110) mg/dL Calcium (8.4-10.2) mg/dL Magnesium (1.6-2.3) mg/dL
[2023-03-21 16:12] LABS: Glucose,Whole Blood 269 mg/dL (70-110)
--- NOTE | 2023-03-21 17:07 | DS ---
DISCHARGE SUMMARY ADDENDUM: The patient was discharged a day or two ago, Cardiology, wanted to do another study. He underwent cardiac cath, which was normal. He will be going to the senior care today. Final diagnoses are unchanged. MMODL / IJN: [id number] /
--- NOTE | 2023-03-21 18:37 | CDI ---
Documentation Clarification Form Date: 03/21/2023 06:12:48 PM From: Margaux Woodruff RN CCDS Phone: [phone] Admit Date: 03/13/2023 06:01:00 PM Patient Name: Anthony Schafer Visit Number: [id number] Discharge Date: ATTENTION: The Clinical Documentation Specialists (CDI) and [employer] Coding Staff appreciate your assistance in clarifying documentation. Please respond to the clarification below the line at the bottom and electronically sign. The CDI & [employer] Coding staff will review the response and follow-up if needed. Please note: Queries are made part of the Legal Health Record. If you have any questions, please contact the author of this message via ITS. Dr. Balaji Fountain Sepsis is documented ED Note, 03/13, but is not noted in subsequent documentation. Clarification is requested. History/Risk Factors: 72-year-old male had been debilitated for some time and falling for some time. The patient went to [facility] and was discharged home, upon returning home the patient started falling. Medical History: CKD, DM. 03/15, H&P. Clinical Indicators: VSS, 03/13: B/P 99/60; HR 57; Temp 97.6 F oral, RR 16, SpO2 88% 2L nasal cannula Labs, 03/13: Wbc 21.9; Neutrophils 20.0; BUN 124; CR 3.80; Lactic acid 2.3 Urine Lab 03/13: Protein 2+, Glucose 3+, Ketones 1+, Blood moderate, Leukocytosis Esterase Large, Rbc 6, Wbc 84, Wbc clumps moderate, bacteria moderate, mucus rare. Nephrology consult, 03/15: Patient is a pleasant 72-year old male who presented to the hospital with a urinary tract infection and possible sepsis, Treatment: IV Fluids: 03/13 13:07 0.9NS 1L IV bolus x 1; 03/13 16:15 0.9NS 1L IV bolus x 1; Antibiotics: 03/13 17:51 Rocephin 1,000mg IVP x1; 03/13 17:59 Rocephin 1,000mg IVP x 1; 03/14 Ceftriaxone 2gm IVPB Q24H NATALYA; Please clarify if the Sepsis is: [ ] Sepsis POA confirmed, remains under treatment [ ] Sepsis POA confirmed, resolved [ ] Sepsis ruled out [ ] Other condition, please specify [ ] Unable to determine Documented in progress note 03/24 Dr. Fountain UTI, Sepsis, Acute kidney failure (Template Last Revised: May 2020) MTDD
[2023-03-21 19:58] LABS: Glucose,Whole Blood 170 mg/dL (70-110)
[2023-03-22] MEDS: SODIUM CHLORIDE 0.9% 1,000 ML in EMPTY BAG 1 BAG IV SCH (06:15)
[2023-03-22 06:18] LABS: Glucose,Whole Blood 208 mg/dL (70-110)
[2023-03-22] MEDS: INSULIN DETEMIR (LEVEMIR) 100 UNIT/ML SYR SQ SCH (06:51)
[2023-03-22] MEDS: PANTOPRAZOLE 40 MG TABLET PO SCH (06:51)
[2023-03-22] MEDS: INSULIN ASPART (NovoLOG) 100 UNIT/ML VIAL SQ SCH (07:05)
[2023-03-22] MEDS: METOPROLOL SUCCINATE (ER) 100 MG TAB.ER.24H PO SCH (08:33)
[2023-03-22] MEDS: ASPIRIN 81 MG PO SCH (08:33)
[2023-03-22] MEDS: LINAGLIPTIN 5 MG TABLET PO SCH (08:33)
[2023-03-22] MEDS: SODIUM BICARBONATE TAB 650 MG TAB PO SCH (08:33)
[2023-03-22] MEDS: NYSTATIN 100,000 UNIT/GM POWD 15 GM TOPICAL SCH (08:33)
[2023-03-22] MEDS: MAGNESIUM OXIDE 400 MG TAB PO SCH (08:33)
[2023-03-22] MEDS: AMIODARONE 200 MG TAB PO SCH (08:33)
[2023-03-22] MEDS: TAMSULOSIN 0.4 MG CAP.ER.24H PO SCH (08:33)
[2023-03-22 09:03] VITALS: BP 125/57; PULSE 85; RESP 20; TEMP 98.2
--- NOTE | 2023-03-23 04:26 | PN ---
PROGRESS NOTE DATE OF SERVICE: 03/22/2023 CHIEF COMPLAINT: General debility and failure to thrive with frequent falling and urinary tract infection. HISTORY OF PRESENT ILLNESS: This gentleman is doing well. Apparently, there was a bed available for him at the half-way and he was discharged yesterday, but he is still in. PHYSICAL EXAMINATION: CHEST: Clear. CARDIAC: Normal. ABDOMEN: Soft and protuberant. EXTREMITIES: Normal. IMPRESSION: 1. General debility and weakness with failure to thrive. 2. Frequent falling. 3. Urinary tract infection. 4. Hypertension. 5. Diabetes. PLAN: Discharge to half-way anytime. MMODL / IJN: [id number] /
--- NOTE | 2023-03-25 01:28 | PN ---
PROGRESS NOTE DATE OF SERVICE: 03/20/2023 CHIEF COMPLAINT: Urinary tract infection with sepsis. HISTORY OF PRESENT ILLNESS: This gentleman is doing well. He awaits discharge planning. PHYSICAL EXAMINATION: VITAL SIGNS: Normal. He is afebrile. HEAD, EARS, EYES, NOSE, AND MOUTH: Normal. CHEST: Clear. CARDIAC: Normal. ABDOMEN: Soft, nontender. EXTREMITIES: Normal. IMPRESSION: 1. Sepsis. 2. Urinary tract infection. 3. Renal failure. 4. Diabetes. PLAN: [facility] is [facility] to [facility] and arrangements are made. MMODL / IJN: [id number] /
--- NOTE | 2023-03-25 04:38 | PN ---
PROGRESS NOTE DATE OF SERVICE: 03/21/2023 CHIEF COMPLAINT: Urinary tract infection, renal failure, and diabetes. HISTORY OF PRESENT ILLNESS: This gentleman is [facility]. There has been no interval change. PHYSICAL EXAMINATION: CHEST: Clear. CARDIAC: Normal. ABDOMEN: Soft and nontender. IMPRESSION: 1. Urinary tract infection. 2. Sepsis. 3. Acute renal failure. 4. Diabetes. PLAN: Await jail placement. MMODL / IJN: [id number] /
== END 2023-03-22 11:23 | DRG 871 ==
LOC: EC 13:03 → 3SCARD 18:01
PROVIDERS: ADMIT Family Medicine; ATTEND Family Medicine
PROC: B2111ZZ Fluoroscopy of Multiple Coronary Arteries using Low Osmolar Contrast (ICD-10-PCS; principal; 2023-03-20 16:00)
PROC: 4A023N7 Measurement of Cardiac Sampling and Pressure, Left Heart, Percutaneous Approach (ICD-10-PCS; principal; 2023-03-20 16:00)
DX: A41.9 Sepsis, unspecified organism (principal); N17.0 Acute kidney failure with tubular necrosis; I13.0 Hypertensive heart and chronic kidney disease with heart failure and stage 1 through stage 4 chronic kidney disease, or unspecified chronic kidney disease; N39.0 Urinary tract infection, site not specified; E11.22 Type 2 diabetes mellitus with diabetic chronic kidney disease; E78.5 Hyperlipidemia, unspecified; E83.42 Hypomagnesemia; E87.5 Hyperkalemia; F03.90 Unspecified dementia, unspecified severity, without behavioral disturbance, psychotic disturbance, mood disturbance, and anxiety; R53.81 Other malaise; H91.93 Unspecified hearing loss, bilateral; I49.5 Sick sinus syndrome; I48.0 Paroxysmal atrial fibrillation; I50.9 Heart failure, unspecified; N18.32 Chronic kidney disease, stage 3b; R29.6 Repeated falls; R62.7 Adult failure to thrive; Z74.01 Bed confinement status; Z79.4 Long term (current) use of insulin; Z79.84 Long term (current) use of oral hypoglycemic drugs; Z79.899 Other long term (current) drug therapy; Z82.49 Family history of ischemic heart disease and other diseases of the circulatory system; Z91.81 History of falling; Z95.0 Presence of cardiac pacemaker; Z97.4 Presence of external hearing-aid; Z60.2 Problems related to living alone
CPT/HCPCS: 36415; 71046; 76770; 76937; 80048; 80053; 81001; 82310; 82803; 83036; 83605; 83735; 84132; 84484; 85025; 85610; 85730; 87040; 90662; 90677; 93005; 93306; 93454; 94760; 96365; 96366; 96368; 96372; 96375; 96376; 99291

== ENCOUNTER 2023-09-15 12:04 | Inpatient (IN) | payer MEDICARE, OTHER ==
--- NOTE | 2023-09-15 13:48 | ED ---
Weakness HPI - General Chief complaint: Recheck/Abnormal Lab/Rx Stated complaint: abn labs Time Seen by Provider: 09/15/23 12:27 Source: EMS, RN notes reviewed, old records reviewed Mode of arrival: EMS Limitations: no limitations - History of Present Illness Initial comments: This is a 73-year-old male this patient presents today for evaluation of court angelay weakness failure to thrive, sister is at bedside he states recently he seems to have lost the will to live, not eating or drinking not acting appropriately he is without complaint she brings him to the ER for significant distress with altered mental status and confusion MD Complaint: generalized weakness, lack of energy, difficulty walking -: days(s) Location: generalized Severity: severe Severity scale (1-10): 9 Consistency: constant Improves with: none, evening Context: recent illness, history of similar Associated Symptoms: denies other symptoms - Related Data Home Medications Medication Instructions Recorded Confirmed Linagliptin [Tradjenta] 5 mg PO DAILY@69901/11/23 09/15/23 Tamsulosin HCl [Flomax] 0.8 mg PO DAILY@69901/11/23 09/15/23 Omeprazole Magnesium [PriLOSEC OTC] 40 mg PO DAILY@69903/13/23 09/15/23 Amiodarone [Cordarone] 100 mg PO DAILY@79909/15/23 09/15/23 Apixaban [Eliquis] 5 mg PO BID@0800,159909/15/23 09/15/23 Aspirin 81 mg PO DAILY@69909/15/23 09/15/23 Atorvastatin [Lipitor] 10 mg PO DAILY@79909/15/23 09/15/23 Cholecalciferol [Vitamin D3 (125 125 mcg PO DAILY@79909/15/23 09/15/23 Mcg = 5000 Iu)] Insulin Aspart (Niacinamide) 6 units SQ DAILY@159909/15/23 09/15/23 [Fiasp 100 Unit/ml Flextouch Pen] Insulin Aspart (Niacinamide) 12 units SQ DAILY@69909/15/23 09/15/23 [Fiasp 100 Unit/ml Flextouch Pen] Insulin Glargine,Hum.rec.anlog 20 units SQ DAILY@69909/15/23 09/15/23 [Lantus Solostar Pen] Megestrol [Megace] 200 mg PO DAILY@0809/15/23 09/15/23 Metoprolol Succinate (ER) [Toprol 25 mg PO DAILY@79909/15/23 09/15/23 XL] Sodium Bicarbonate 325 mg PO BID 09/15/23 09/15/23 Previous Rx's Medication Instructions Recorded Mirtazapine [Remeron] 7.5 mg PO HS tab 09/19/23 Allergies Allergy/AdvReac Type Severity Reaction Status Date / Time codeine AdvReac Severe Verified 09/15/23 15:47 insomnia Review of Systems ROS Statement: Those systems with pertinent positive or pertinent negative responses have been documented in the HPI. ROS Other: All systems not noted in ROS Statement are negative. Past Medical History Past Medical History: Atrial Fibrillation, Heart Failure, Diabetes Mellitus, Hearing Disorder / Deafness, Hypertension, Renal Disease, Sleep Apnea/CPAP/BIPAP Additional Past Medical History / Comment(s): IDDM type II, NONDALTON bilaterally- wears aide History of Any Multi-Drug Resistant Organisms: None Reported Past Surgical History: Ablation, Heart Catheterization, Pacemaker Additional Past Surgical History / Comment(s): R eye surgery/lens implant-pt believes d/t infection, colonoscopy. Pacemaker d/t low heart rate per pt. Past Anesthesia/Blood Transfusion Reactions: No Reported Reaction Type of Cardiac Device: Unknown Device Placement Date:: unknown Past Psychological History: No Psychological Hx Reported Smoking Status: Former smoker Past Alcohol Use History: None Reported Past Drug Use History: None Reported - Past Family History Father Family Medical History: Myocardial Infarction (IA) Additional Family Medical History / Comment(s): Father of a IA but pt c annot recall at what age. Mother Family Medical History: Cancer Additional Family Medical History / Comment(s): Pt cannot recall type of cancer. General Exam General appearance: alert, in no apparent distress Head exam: Present: atraumatic, normocephalic, normal inspection Eye exam: Present: normal appearance, PERRL, EOMI. Absent: scleral icterus, con junctival injection, periorbital swelling ENT exam: Present: normal exam, mucous membranes moist Neck exam: Present: normal inspection. Absent: tenderness, meningismus, lymphadenopathy Respiratory exam: Present: normal lung sounds bilaterally. Absent: respiratory distress, wheezes, rales, rhonchi, stridor Cardiovascular Exam: Present: regular rate, normal rhythm, normal heart sounds. Absent: systolic murmur, diastolic murmur, rubs, gallop, clicks GI/Abdominal exam: Present: soft, normal bowel sounds. Absent: distended, tenderness, guarding, rebound, rigid Extremities exam: Present: normal inspection, full ROM, normal capillary refill. Absent: tenderness, pedal edema, joint swelling, calf tenderness Back exam: Present: normal inspection Neurological exam: Present: alert, oriented X3, CN II-XII intact Psychiatric exam: Present: normal affect, normal mood Skin exam: Present: warm, dry, intact, normal color. Absent: rash Course Vital Signs 09/15/23 09/15/23 09/15/23 12:05 14:23 15:36 Temperature 97.5 F L Pulse Rate 70 60 61 Pulse Rate [ Pulse Oximetery ] Respiratory 18 20 18 Rate Blood Pressure 116/67 124/65 138/72 Blood Pressure [Left Arm] O2 Sat by Pulse 99 97 100 Oximetry 09/15/23 09/16/23 09/16/23 23:23 06:31 07:21 Temperature Pulse Rate 74 60 68 Pulse Rate [ Pulse Oximetery ] Respiratory 16 18 16 Rate Blood Pressure 146/58 151/62 118/68 Blood Pressure [Left Arm] O2 Sat by Pulse 100 99 98 Oximetry 09/16/23 09/16/23 09/16/23 10:30 13:10 18:32 Temperature Pulse Rate 60 60 65 Pulse Rate [ Pulse Oximetery ] Respiratory 16 14 16 Rate Blood Pressure 136/66 144/57 113/55 Blood Pressure [Left Arm] O2 Sat by Pulse 96 97 100 Oximetry 09/16/23 09/16/23 20:39 21:07 Temperature 97.6 F 97.5 F L Pulse Rate Pulse Rate [ 60 63 Pulse Oximetery ] Respiratory 19 17 Rate Blood Pressure Blood Pressure 132/96 162/83 [Left Arm] O2 Sat by Pulse 98 99 Oximetry - Reevaluation(s) Reevaluation #1: 09/15/23 13:52 Medical records reviewed Reevaluation #2: 09/15/23 13:52 Symptoms unchanged Reevaluation #3: 09/15/23 13:52 Patient informed of results questions answered Reevaluation #4: Was pt. sent in by a medical professional or institution (MARIA ISABEL Prabhakar, [employer], urgent care, hospital, or [place] health care facility...) When possible be specific @ -no Did you speak to anyone other than the patient for history (EMS, parent, family, police, friend...)? What history was obtained from this source @ -no Did you review nursing and triage notes (agree or disagree)? Why? @ -agree Are old charts reviewed (outside hosp., previous admission, EMS record, old EKG, old radiological studies, urgent care reports/EKG's, [place] health care facility records)? Report findings @ -yes Differential Diagnosis (chest pain, altered mental status, abdominal pain women, abdominal pain men, vaginal bleeding, weakness, fever, dyspnea, syncope, headache, dizziness, GI bleed, back pain, seizure, CVA, palpatations, mental hea lth, musculoskeletal)? @ -prior EKG interpreted by me (3pts min.). @ -yes X-rays interpreted by me (1pt min.). @ -yes negative for acute disease CT interpreted by me (1pt min.). @ -no U/S interpreted by me (1pt. min.). @ -no What testing was considered but not performed or refused? (CT, X-rays, U/S, labs)? Why? @ -none What meds were considered but not given or refused? Why? @ -none Did you discuss the management of the patient with other professionals (professionals i.e. MARIA ISABEL Prabhakar, [employer] ADMIN ENGINEER, lab, RT, psych nurse, medical social worker, field sales associate, teacher, forest officer, classification case manager)? Give summary @ -no Was smoking cessation discussed for >3mins.? @ -no Was critical care preformed (if so, how long)? @ -no Were there social determinants of health that impacted care today? How? (Homelessness, low income, unemployed, alcoholism, drug addiction, transportation, low edu. Level, literacy, decrease access to med. care, care home, rehab)? @ -none Was there de-escalation of care discussed even if they declined (Discuss DNR or withdrawal of care, Hospice)? DNR status @ -no What co-morbidities impacted this encounter? (DM, HTN, Smoking, COPD, CAD, Cancer, CVA, ARF, Chemo, Hep., AIDS, mental health diagnosis, sleep apnea, morbid obesity)? @ -none Was patient admitted / discharged? Hospital course, mention meds given and route, prescriptions, significant lab abnormalities, going to OR and other per tinent info. @ - 73 Before male will be admitted for persistent debility weakness not eating and drinking appropriately. Patient does appear to have history of similar symptoms but sister at bedside states this is different and new . Admitted Undiagnosed new problem with uncertain prognosis? @ -no Drug Therapy requiring intensive monitoring for toxicity (Heparin, Nitro, Insulin, Cardizem)? @ -no Were any procedures done? @ -no Diagnosis/symptom? @ -Debility and weakness Acute, or Chronic, or Acute on Chronic? @ -Acute Uncomplicated (without systemic symptoms) or Complicated (systemic symptoms)? @ -Complicated Side effects of treatment? @ -no Exacerbation, Progression, or Severe Exacerbation? @ -exacerbation Poses a threat to life or bodily function? How? (Chest pain, USA, IA, pneumonia, PE, COPD, DKA, ARF, appy, cholecystitis, CVA, Diverticulitis, Homicidal, Suicidal, threat to staff... and all critical care pts) @ -yes extremes of age Reevaluation #5: Differential Weakness: Hypoglycemia, shock, sepsis, hyponatremia, anemia, infection, IA, ETOH, adverse medicine reaction, overdose, stroke, this is not meant to be an all-inclusive list. EKG Findings - EKG Comments: EKG Findings:: EKG is paced 60 CO 241 QRS 111 QTc 401 - EKG Results: EKG: interpreted by ERMD Medical Decision Making - Medical Decision Making 73 Before male will be admitted for persistent debility weakness not eating and drinking appropriately. Patient does appear to have history of similar symptoms but sister at bedside states this is different and new - Lab Data Result diagrams: 09/18/23 06:59 09/19/23 06:33 Lab Results 09/15/23 09/15/23 09/15/23 Range/Units 13:38 13:38 13:38 WBC 12.7 H (3.8-10.6) k/uL RBC 2.90 L (4.30-5.90) m/uL Hgb 9.0 L (13.0-17.5) gm/dL Hct 27.6 L (39.0-53.0) % MCV 95.0 (80.0-100.0) fL MCH 30.9 (25.0-35.0) pg MCHC 32.5 (31.0-37.0) g/dL RDW 13.4 (11.5-15.5) % Plt Count 389 (150-450) k/uL MPV 8.8 Neutrophils % 70 % Lymphocytes % 18 % Monocytes % 8 % Eosinophils % 2 % Basophils % 0 % Neutrophils # 8.8 H (1.3-7.7) k/uL Lymphocytes # 2.2 (1.0-4.8) k/uL Monocytes # 1.1 H (0-1.0) k/uL Eosinophils # 0.3 (0-0.7) k/uL Basophils # 0.1 (0-0.2) k/uL PT 12.0 (10.0-12.5) sec INR 1.1 (<1.2) APTT 30.2 H (22.0-30.0) sec Sodium 134 L (137-145) mmol/L Potassium 4.4 (3.5-5.1) mmol/L Chloride 110 H (98-107) mmol/L Carbon Dioxide 14 L (22-30) mmol/L Anion Gap 10 mmol/L BUN 43 H (9-20) mg/dL Creatinine 2.82 H (0.66-1.25) mg/dL Est GFR (CKD-EPI)AfAm 24 (>60 ml/min/1.73 sqM) Est GFR (CKD-EPI)NonAf 21 (>60 ml/min/1.73 sqM) Glucose 69 L (74-99) mg/dL POC Glucose (mg/dL) (70-110) mg/dL POC Glu Fur Dry Cleaner ID Plasma Lactic Acid Russell (0.7-2.0) mmol/L Calcium 8.6 (8.4-10.2) mg/dL Phosphorus 3.6 (2.5-4.5) mg/dL Magnesium 1.7 (1.6-2.3) mg/dL Total Bilirubin 0.4 (0.2-1.3) mg/dL AST 14 L (17-59) U/L ALT 10 (4-49) U/L Alkaline Phosphatase 82 (38-126) U/L Troponin I (0.000-0.034) ng/mL NT-Pro-B Natriuret Pep 1580 pg/mL Total Protein 6.0 L (6.3-8.2) g/dL Albumin 3.0 L (3.5-5.0) g/dL TSH 2.020 (0.465-4.680) mIU/L Urine Color Urine Appearance (Clear) Urine pH (5.0-8.0) Ur Specific [place] (1.001-1.035) Urine Protein (Negative) Urine Glucose (UA) (Negative) Urine Ketones (Negative) Urine Blood (Negative) Urine Nitrite (Negative) Urine Bilirubin (Negative) Urine Urobilinogen (<2.0) mg/dL Ur Leukocyte Esterase (Negative) Urine RBC (0-5) /hpf Urine WBC (0-5) /hpf Ur Squamous Epith Cells (0-4) /hpf Urine Bacteria (None) /hpf Urine Mucus (None) /hpf 09/15/23 09/15/23 09/15/23 Range/Units 13:38 13:38 14:17 WBC (3.8-10.6) k/uL RBC (4.30-5.90) m/uL Hgb (13.0-17.5) gm/dL Hct (39.0-53.0) % MCV (80.0-100.0) fL MCH (25.0-35.0) pg MCHC (31.0-37.0) g/dL RDW (11.5-15.5) % Plt Count (150-450) k/uL MPV Neutrophils % % Lymphocytes % % Monocytes % % Eosinophils % % Basophils % % Neutrophils # (1.3-7.7) k/uL Lymphocytes # (1.0-4.8) k/uL Monocytes # (0-1.0) k/uL Eosinophils # (0-0.7) k/uL Basophils # (0-0.2) k/uL PT (10.0-12.5) sec INR (<1.2) APTT (22.0-30.0) sec Sodium (137-145) mmol/L Potassium (3.5-5.1) mmol/L Chloride (98-107) mmol/L Carbon Dioxide (22-30) mmol/L Anion Gap mmol/L BUN (9-20) mg/dL Creatinine (0.66-1.25) mg/dL Est GFR (CKD-EPI)AfAm (>60 ml/min/1.73 sqM) Est GFR (CKD-EPI)NonAf (>60 ml/min/1.73 sqM) Glucose (74-99) mg/dL POC Glucose (mg/dL) (70-110) mg/dL POC Glu Fur Dry Cleaner ID Plasma Lactic Acid Russell 0.8 (0.7-2.0) mmol/L Calcium (8.4-10.2) mg/dL Phosphorus (2.5-4.5) mg/dL Magnesium (1.6-2.3) mg/dL Total Bilirubin (0.2-1.3) mg/dL AST (17-59) U/L ALT (4-49) U/L Alkaline Phosphatase (38-126) U/L Troponin I <0.012 (0.000-0.034) ng/mL NT-Pro-B Natriuret Pep pg/mL Total Protein (6.3-8.2) g/dL Albumin (3.5-5.0) g/dL TSH (0.465-4.680) mIU/L Urine Color Yellow Urine Appearance Turbid (Clear) Urine pH 8.0 (5.0-8.0) Ur Specific [place] 1.017 (1.001-1.035) Urine Protein 2+ H (Negative) Urine Glucose (UA) Negative (Negative) Urine Ketones Negative (Negative) Urine Blood Moderate H (Negative) Urine Nitrite Negative (Negative) Urine Bilirubin Negative (Negative) Urine Urobilinogen <2.0 (<2.0) mg/dL Ur Leukocyte Esterase Large H (Negative) Urine RBC 50 H (0-5) /hpf Urine WBC >182 H (0-5) /hpf Ur Squamous Epith Cells 4 (0-4) /hpf Urine Bacteria Many H (None) /hpf Urine Mucus Few H (None) /hpf 09/15/23 Range/Units 14:27 WBC (3.8-10.6) k/uL RBC (4.30-5.90) m/uL Hgb (13.0-17.5) gm/dL Hct (39.0-53.0) % MCV (80.0-100.0) fL MCH (25.0-35.0) pg MCHC (31.0-37.0) g/dL RDW (11.5-15.5) % Plt Count (150-450) k/uL MPV Neutrophils % % Lymphocytes % % Monocytes % % Eosinophils % % Basophils % % Neutrophils # (1.3-7.7) k/uL Lymphocytes # (1.0-4.8) k/uL Monocytes # (0-1.0) k/uL Eosinophils # (0-0.7) k/uL Basophils # (0-0.2) k/uL PT (10.0-12.5) sec INR (<1.2) APTT (22.0-30.0) sec Sodium (137-145) mmol/L Potassium (3.5-5.1) mmol/L Chloride (98-107) mmol/L Carbon Dioxide (22-30) mmol/L Anion Gap mmol/L BUN (9-20) mg/dL Creatinine (0.66-1.25) mg/dL Est GFR (CKD-EPI)AfAm (>60 ml/min/1.73 sqM) Est GFR (CKD-EPI)NonAf (>60 ml/min/1.73 sqM) Glucose (74-99) mg/dL POC Glucose (mg/dL) 77 (70-110) mg/dL POC Glu Fur Dry Cleaner ID Ignacia Carrillo Plasma Lactic Acid Russell (0.7-2.0) mmol/L Calcium (8.4-10.2) mg/dL Phosphorus (2.5-4.5) mg/dL Magnesium (1.6-2.3) mg/dL Total Bilirubin (0.2-1.3) mg/dL AST (17-59) U/L ALT (4-49) U/L Alkaline Phosphatase (38-126) U/L Troponin I (0.000-0.034) ng/mL NT-Pro-B Natriuret Pep pg/mL Total Protein (6.3-8.2) g/dL Albumin (3.5-5.0) g/dL TSH (0.465-4.680) mIU/L Urine Color Urine Appearance (Clear) Urine pH (5.0-8.0) Ur Specific [place] (1.001-1.035) Urine Protein (Negative) Urine Glucose (UA) (Negative) Urine Ketones (Negative) Urine Blood (Negative) Urine Nitrite (Negative) Urine Bilirubin (Negative) Urine Urobilinogen (<2.0) mg/dL Ur Leukocyte Esterase (Negative) Urine RBC (0-5) /hpf Urine WBC (0-5) /hpf Ur Squamous Epith Cells (0-4) /hpf Urine Bacteria (None) /hpf Urine Mucus (None) /hpf - EKG Data -: EKG Interpreted by [place] - Radiology Data Radiology results: report reviewed (X-rays negative for acute disease), image reviewed Disposition Clinical Impression: Multiple falls, Fall, Generalized weakness, Acute renal failure, Acute kidney injury, Hypoglycemia Disposition: ADMITTED IP TO THIS [facility] Condition: Fair Is patient prescribed a controlled substance at d/c from ED?: No Time of Disposition: 16:30
[2023-09-15 13:59] LABS: Basophils % (A) 0 %; Eosinophils % (A) 2 %; HCT 27.6 % (39.0-53.0); Lymphocytes % (A) 18 %; MCH 30.9 pg (25.0-35.0); MCHC 32.5 g/dL (31.0-37.0); Mean Platelet Volume 8.8; Monocytes % (A) 8 %; Neutrophils % (A) 70 %; Platelet Count 389 k/uL (150-450); RDW 13.4 % (11.5-15.5); WBC 12.7 k/uL (3.8-10.6)
[2023-09-15 14:00] LABS: Basophils # (A) 0.1 k/uL (0-0.2); Eosinophils # (A) 0.3 k/uL (0-0.7); Lymphocytes # (A) 2.2 k/uL (1.0-4.8); Monocytes # (A) 1.1 k/uL (0-1.0); Neutrophils # (A) 8.8 k/uL (1.3-7.7)
[2023-09-15 14:03] LABS: ALT 10 U/L (4-49); AST 14 U/L (17-59); African American GFR (CKD) 24 (>60 ml/min/1.73 sqM); Alkaline Phosphatase 82 U/L (38-126); Anion Gap 10 mmol/L; Blood Urea Nitrogen 43 mg/dL (9-20); Calcium 8.6 mg/dL (8.4-10.2); Carbon Dioxide 14 mmol/L (22-30); Chloride 110 mmol/L (98-107); Glucose 69 mg/dL (74-99); INR 1.1 (<1.2); Magnesium 1.7 mg/dL (1.6-2.3); Non-African American GFR(CKD) 21 (>60 ml/min/1.73 sqM); Partial Thromboplastin Time 30.2 sec (22.0-30.0); Phosphorus 3.6 mg/dL (2.5-4.5); Potassium 4.4 mmol/L (3.5-5.1); Sodium 134 mmol/L (137-145); Total Bilirubin 0.4 mg/dL (0.2-1.3)
[2023-09-15 14:11] LABS: NT-Pro-B-Type Natriuretic Pept 1580 pg/mL
[2023-09-15 14:29] LABS: Glucose,Whole Blood 77 mg/dL (70-110)
[2023-09-15] MEDS: SODIUM CHLORIDE 0.9% 1,000 ML IV STA ×2 (14:42→16:44)
--- NOTE | 2023-09-15 14:42 | XR ---
EXAMINATION TYPE: XR chest 2V DATE OF EXAM: 09/15/2023 2:11 PM CLINICAL INDICATION:Male, 73 years old with history of Weakness; COMPARISON: Chest radiographs from 03/13/2023 TECHNIQUE: XR chest 2V Frontal view of the chest. FINDINGS: Lungs/Pleura: There is no evidence of pleural effusion, focal consolidation, or pneumothorax. Pulmonary vascularity: Unremarkable. Heart/mediastinum: Cardiomediastinal silhouette is enlarged and stable. Two lead cardiac conduction d evice overlying the left hemithorax with lead tips projecting over the right ventricle and right atri um. Musculoskeletal: No acute osseous pathology. IMPRESSION: No acute cardiopulmonary disease/process.
[2023-09-15] MEDS ORDERED: NALOXONE 0.4 MG/ML 1 ML VIAL IV PRN (16:30)
[2023-09-15] MEDS ORDERED: ONDANSETRON 4 MG/2 ML VIAL IVP PRN (16:30)
[2023-09-15] MEDS ORDERED: MORPHINE SULFATE 4 MG/ML SYRINGE IV PRN (16:30)
[2023-09-15 16:55] LABS: Appearance,Urine Turbid (Clear); Bacteria,Urine Many /hpf; Bilirubin,Urine Negative (Negative); Blood,Urine Moderate (Negative); Color,Urine Yellow; Glucose,Urine (UA) Negative (Negative); Ketones,Urine Negative (Negative); Leukocyte Esterase,Urine Large (Negative); Mucus,Urine Few /hpf; Nitrite,Urine Negative (Negative); Protein,Urine 2+ (Negative); RBC,Urine 50 /hpf (0-5); Specific Gravity,Urine 1.017 (1.001-1.035); Squamous Epithelial Cell,Urine 4 /hpf (0-4); Urobilinogen,Urine <2.0 mg/dL (<2.0); WBC,Urine >182 /hpf (0-5)
[2023-09-15] MEDS: SODIUM CHLORIDE 0.9% 1,000 ML IV SCH (23:32)
[2023-09-16 10:54] LABS: ALT 8 U/L (10-49); AST 12 U/L (14-35); Albumin 3.2 g/dL (3.8-4.9); Albumin/Globulin Ratio 1.33 Ratio (1.60-3.17); Alkaline Phosphatase 84 U/L (41-126); BUN/Creat Ratio 14.89 Ratio (12.00-20.00); Blood Urea Nitrogen 40.2 mg/dL (9.0-27.0); Calcium 8.6 mg/dL (8.7-10.3); Carbon Dioxide 16.6 mmol/L (21.6-31.8); Chloride 110 mmol/L (96-109); Globulin 2.4 g/dL (1.6-3.3); Glucose 105 mg/dL (70-110); Magnesium 1.6 mg/dL (1.5-2.4); Phosphorus 3.4 mg/dL (2.4-5.1); Potassium 4.8 mmol/L (3.5-5.5); Sodium 137 mmol/L (135-145); Total Bilirubin 0.3 mg/dL (0.3-1.2); Total Protein 5.6 g/dL (6.2-8.2)
[2023-09-16 11:21] LABS: Basophils # (A) 0.07 X 10*3/uL (0.00-0.10); Basophils % (A) 0.9 %; Eosinophils # (A) 0.19 X 10*3/uL (0.04-0.35); Eosinophils % (A) 2.4 %; HCT 24.4 % (39.6-50.0); Lymphocytes # (A) 2.27 X 10*3/uL (0.90-5.00); Lymphocytes % (A) 28.3 %; MCH 30.8 pg (27.0-32.0); MCHC 32.8 g/dL (32.0-37.0); MCV 93.8 FL (80.0-97.0); Mean Platelet Volume 10.2 FL (9.5-12.2); NRBC Per 100 WBC 0 X 10*3/uL (0.00-0.01); Neutrophils # (A) 4.62 X 10*3/uL (1.80-7.70); Neutrophils % (A) 57.5 %; Platelet Count 352 X 10*3/uL (140-440); RDW 13.3 % (11.5-14.5); WBC 8.02 X 10*3/uL (4.50-10.00)
--- NOTE | 2023-09-16 15:38 | P.HPIM ---
History of Present Illness 73-year-old male was brought in because of generalized weakness which was increasing and patient was also apparently confused at home. Patient does not have any fever does have leukocytosis and significantly abnormal urine with elevated white blood cells in the urine. Patient is unable to provide any history to me. Patient creatinine is elevated 2.7 which is his baseline. Review of systems: Unable to obtain due to his clinical condition PHYSICAL EXAMINATION: GENERAL: The patient is alert unable to assess patient's orientation, not in any acute distress. Well developed, well nourished. HEENT: Pupils are round and equally reacting to light. EOMI. No scleral icterus. No conjunctival pallor. Normocephalic, atraumatic. No pharyngeal erythema. No thyromegaly. CARDIOVASCULAR: S1 and S2 present. No murmurs, rubs, or gallops. PULMONARY: Chest is clear to auscultation, no wheezing or crackles. ABDOMEN: Soft, nontender, nondistended, normoactive bowel sounds. No palpable organomegaly. MUSCULOSKELETAL: No joint swelling or deformity. EXTREMITIES: No cyanosis, clubbing, or pedal edema. NEUROLOGICAL significant generalized weakness does not appear to have any focal deficits although exam is limited SKIN: No rashes. Assessment and plan Toxic encephalopathy chest x-ray did not show anemia pneumonia possibility of UTI urine cultures will be obtained patient will be started on Rocephin 1 g daily because of poor renal function -Chronic kidney disease stage IV -Paroxysmal atrial fibrillation presently heart rate is controlled and patient is sinus rhythm patient will be resumed on home regimen along with Eliquis -Type 2 diabetes mellitus patient will be on sliding scale insulin hold off linagliptin -Sleep apnea continue CPAP machine -Benign prostatic hypertrophy: Tamsulosin DVT prophylaxis: Patient is on Eliquis which will be continued Past Medical History Past Medical History: Atrial Fibrillation, Heart Failure, Diabetes Mellitus, Hearing Disorder / Deafness, Hypertension, Memory Impairment, Osteoarthritis (OA), Renal Disease, Sleep Apnea/CPAP/BIPAP Additional Past Medical History / Comment(s): IDDM type II, [place] bilaterally- wears aide sometimes History of Any Multi-Drug Resistant Organisms: None Reported Past Surgical History: Ablation, Heart Catheterization, Joint Replacement, Orthopedic Surgery, Pacemaker Additional Past Surgical History / Comment(s): R eye surgery/lens implant, colonoscopy. Past Anesthesia/Blood Transfusion Reactions: No Reported Reaction Type of Cardiac Device: Unknown Device Placement Date:: unknown Past Psychological History: Depression Additional Psychological History / Comment(s): Pt resides at [facility]. Smoking Status: Never smoker Past Alcohol Use History: None Reported Past Drug Use History: None Reported - Past Family History Father Family Medical History: Myocardial Infarction ([place]) Additional Family Medical History / Comment(s): Father of a [place] but pt cannot recall at what age. Mother Family Medical History: Cancer Additional Family Medical History / Comment(s): breast cancer. Medications and Allergies Home Medications Medication Instructions Recorded Confirmed Type Linagliptin [Tradjenta] 5 mg PO DAILY@69901/11/23 09/15/23 History Tamsulosin HCl [Flomax] 0.8 mg PO DAILY@69901/11/23 09/15/23 History Omeprazole Magnesium [PriLOSEC OTC] 40 mg PO DAILY@69903/13/23 09/15/23 History Amiodarone [Cordarone] 100 mg PO DAILY@79909/15/23 09/15/23 History Apixaban [Eliquis] 5 mg PO BID@08,159909/15/23 09/15/23 History Aspirin 81 mg PO DAILY@69909/15/23 09/15/23 History Atorvastatin [Lipitor] 10 mg PO DAILY@79909/15/23 09/15/23 History Cholecalciferol [Vitamin D3 (125 125 mcg PO DAILY@79909/15/23 09/15/23 History Mcg = 5000 Iu)] Insulin Aspart (Niacinamide) 6 units SQ DAILY@159909/15/23 09/15/23 History [Fiasp 100 Unit/ml Flextouch Pen] Insulin Aspart (Niacinamide) 12 units SQ DAILY@69909/15/23 09/15/23 History [Fiasp 100 Unit/ml Flextouch Pen] Insulin Glargine,Hum.rec.anlog 20 units SQ DAILY@69909/15/23 09/15/23 History [Lantus Solostar Pen] Megestrol [Megace] 200 mg PO DAILY@79909/15/23 09/15/23 History Metoprolol Succinate (ER) [Toprol 25 mg PO DAILY@79909/15/23 09/15/23 History Xl] Sodium Bicarbonate 325 mg PO BID 09/15/23 09/15/23 History Allergies Allergy/AdvReac Type Severity Reaction Status Date / Time codeine AdvReac Severe Verified 09/15/23 15:47 insomnia Physical Exam Vitals: Vital Signs Pulse Resp BP Pulse Ox 09/16/23 13:10 60 14 144/57 97 09/16/23 10:30 60 16 136/66 96 09/16/23 07:21 68 16 118/68 98 09/16/23 06:31 60 18 151/62 99 09/15/23 23:23 74 16 146/58 100 Results CBC & Chem 7: 09/16/23 06:38 09/16/23 06:38 Labs: Abnormal Lab Results - Last 24 Hours (Table) 09/15/23 09/16/23 09/16/23 Range/Units 14:17 06:38 06:38 RBC 2.60 L (4.40-5.60) X 10*6/uL Hgb 8.0 L (13.0-17.0) g/dL Hct 24.4 L (39.6-50.0) % Immature Gran # 0.07 H (0.00-0.04) X 10*3/uL Chloride 110 H (96-109) mmol/L Carbon Dioxide 16.6 L (21.6-31.8) mmol/L BUN 40.2 H (9.0-27.0) mg/dL Creatinine 2.7 H (0.6-1.5) mg/dL Est GFR (CKD-EPI) 24 L (>=60) Calcium 8.6 L (8.7-10.3) mg/dL AST 12 L (14-35) U/L ALT 8 L (10-49) U/L Total Protein 5.6 L (6.2-8.2) g/dL Albumin 3.2 L (3.8-4.9) g/dL Albumin/Globulin Ratio 1.33 L (1.60-3.17) Ratio Urine Protein 2+ H (Negative) Urine Blood Moderate H (Negative) Ur Leukocyte Esterase Large H (Negative) Urine RBC 50 H (0-5) /hpf Urine WBC >182 H (0-5) /hpf Urine Bacteria Many H (None) /hpf Urine Mucus Few H (None) /hpf Thrombosis Risk Factor Assmnt - Choose All That Apply Each Risk Factor Represents 2 Points: Age 61-74 years Thrombosis Risk Factor Assessment Total Risk Factor Score: 2 Thrombosis Risk Factor Assessment Level: Low Risk
[2023-09-16 17:05] LABS: Glucose,Whole Blood 122 mg/dL (70-110)
[2023-09-16] MEDS: INSULIN ASPART (NovoLOG) 100 UNIT/ML VIAL SQ SCH ×2 (17:20→17:29)
[2023-09-16] MEDS: APIXABAN 2.5 MG TABLET PO SCH (17:29)
[2023-09-16] MEDS: MIRTAZAPINE 15 MG TAB PO SCH (20:43)
[2023-09-16] MEDS: SODIUM BICARBONATE TAB 650 MG TAB PO SCH (20:44)
[2023-09-16 20:59] LABS: Glucose,Whole Blood 123 mg/dL (70-110)
[2023-09-16] MEDS: CHLORHEXIDINE GLUCONATE 15 ML CUP MUCOUS MEM SCH (21:39)
--- NOTE | 2023-09-16 22:24 | P.CN ---
Psychiatric Consult - . Consult date: 09/16/23 Consult:: IDENTIFYING DATA: This patient is a 73 yo male from [facility]. REASON FOR REFERRAL: Psychiatry was consulted for "depression" HISTORY OF PRESENT ILLNESS: Per chart, patient presented to the hospital "This is a 73-year-old male this patient presents today for evaluation of debility weakness failure to thrive, sister is at bedside he states recently he seems to have lost the will to live, not eating or drinking not acting appropriately he is without complaint she brings him to the ER for significant distress with altered mental status and confusion." On my evaluation, patient was found resting in bed. He is hard of hearing and prefers to be spoken to loudly near his right ear. He is disheveled and malodorous. He is a fair historian and reports he has not been eating much since when he eats he tends to feel "sick". When asked what he had for breakfast he has difficulty recalling what he ate and changes the topic. He is oriented to person and place (hospital, [place]), but not time. He does not know the day, date, month or year; states it is sometime in the . He need some questions repeated to difficulty maintaining focus. He denies depressed mood, denies suicidal or homicidal ideations, intent or plan. He denies any auditory or visual hallucinations and denies any paranoia or delusions. Patients denies tobacco, drug or alcohol use. Review of labs shows anemia (hemoglobin 8.0), WBC were elevated on arrival on 09/14 but are normal this morning. Creatinine is elevated at 2.7. UA shows possible UTI. Medical team will obtain blood cultures and start patient on Rocephin. Per medical note he has CKD stage 4, Afib, DM2, [place]RIS[place] (needs CPAP), and BPH. He complains of discomfort in his eyes, worse in right eye, states he previously had eye drops that helped. Nurse was notified of eye discomfort to notify the medical doctor. PAST PSYCHIATRIC HISTORY: Patient denies any past psychiatric history. Patient denies being on any psychiatric medications. Patient denies any previous psychiatric hospitalizations. Patient denies any psychiatric outpatient follow-up. Patient denies any history of suicide attempts in the past. PAST MEDICAL HISTORY: Past Medical History: Atrial Fibrillation, Heart Failure, Diabetes Mellitus, Hearing Disorder / Deafness, Hypertension, Memory Impairment, Osteoarthritis (OA), Renal Disease, Sleep Apnea/CPAP/BIPAP Additional Past Medical History / Comment(s): IDDM type II, [place] bilaterally- wears aide sometimes History of Any Multi-Drug Resistant Organisms: None Reported Past Surgical History: Ablation, Heart Catheterization, Joint Replacement, Orthopedic Surgery, Pacemaker Additional Past Surgical History / Comment(s): R eye surgery/lens implant, colonoscopy. Past Anesthesia/Blood Transfusion Reactions: No Reported Reaction Type of Cardiac Device: Unknown Device Placement Date:: unknown Past Psychological History: Depression Additional Psychological History / Comment(s): Pt resides at [facility]. Smoking Status: Never smoker Past Alcohol Use History: None Reported Past Drug Use History: None Reported ALLERGIES: as per EMR. CHEMICAL DEPENDENCY HISTORY: as per HPI. FAMILY PSYCHIATRIC/SUBSTANCE USE HISTORY: Denies SOCIAL HISTORY: Patient resides at [facility], reports he feels safe there and is treated well there. He is , denies having children. MENTAL STATUS EXAM: General Appearance: Patient appears to be stated age, disheveled and malodorous. Marginal hygiene and grooming, wearing hospital gown. Behavior: Patient is calmly lying in bed without any agitated behavior. Speech: Patient's speech is fluent and non-pressured. Mood/Affect: Patient reports their mood is "alright", affect is congruent Suicidality/Homicidality: Patient denies having any suicidal or homicidal ideation intent or plan. Perceptions: Patient denies any visual hallucinations and denies any auditory hallucinations. Though content/process: There is no evidence of any delusional thought content and thought process is linear and goal-directed. Memory and concentration: Alert and oriented to person and place but not time. Difficulty with recent recall (does not recall what he ate for breakfast). Judgment and insight: fair IMPRESSIONS: Delirium, multifactorial (anemia, CKD stage 4, hard of hearing, possible UTI, etc) Rule out underlying dementia PLAN: -At this time patient DOES meet criteria for inpatient psychiatric admission. -Patient DOES NOT have decision making capacity at this time and is unable to reason through and communicate/appreciate the risks, benefits and alternatives to treatment. -Delirium precautions recommended with patient including - avoiding use of narcotics and PHARMACY TECH sedatives, limit anticholinergic medications when possible, frequent re-orientation, minimize use of restraints, open window shades during the day and close them at night -Would recommend the following medication changes/additions: Start a trial of Remeron 7.5 mg QHS for appetite. If patient becomes more confused or agitated, consider starting low dose Ser oquel 12.5 mg BID. -Continue to evaluate safety and initiate 1:1 sitter if safety concerns arise. -Communicated plan to patient's nurse -Will continue to follow along -Please contact with any questions.
[2023-09-17 06:07] LABS: Glucose,Whole Blood 111 mg/dL (70-110)
[2023-09-17] MEDS: INSULIN ASPART (NovoLOG) 100 UNIT/ML VIAL SQ SCH (06:44)
[2023-09-17] MEDS: INSULIN DETEMIR (LEVEMIR) 100 UNIT/ML SYR SQ SCH (06:45)
[2023-09-17] MEDS: ASPIRIN 81 MG PO SCH (06:53)
[2023-09-17] MEDS: LINAGLIPTIN 5 MG TABLET PO SCH (06:54)
[2023-09-17] MEDS: TAMSULOSIN 0.4 MG CAP.ER.24H PO SCH (06:54)
[2023-09-17] MEDS: PANTOPRAZOLE 40 MG TABLET PO SCH (06:54)
[2023-09-17] MEDS ORDERED: MEGESTROL 400 MG/10 ML CUP PO SCH (08:00)
[2023-09-17] MEDS: METOPROLOL SUCCINATE (ER) 25 MG TAB.ER.24H PO SCH (09:00)
[2023-09-17] MEDS: ATORVASTATIN 10 MG TAB PO SCH (09:08)
[2023-09-17] MEDS: AMIODARONE 100 MG TAB PO SCH (10:52)
[2023-09-17 11:13] LABS: Glucose,Whole Blood 117 mg/dL (70-110)
[2023-09-17 12:24] LABS: African American GFR (CKD) 37 (>60 ml/min/1.73 sqM); Anion Gap 7 mmol/L; Blood Urea Nitrogen 29 mg/dL (9-20); Calcium 8.6 mg/dL (8.4-10.2); Carbon Dioxide 14 mmol/L (22-30); Chloride 118 mmol/L (98-107); Glucose 98 mg/dL (74-99); Non-African American GFR(CKD) 32 (>60 ml/min/1.73 sqM); Potassium 4.2 mmol/L (3.5-5.1); Sodium 139 mmol/L (137-145)
[2023-09-17 12:56] VITALS: BMI 26.3
[2023-09-17 16:26] LABS: Glucose,Whole Blood 103 mg/dL (70-110)
[2023-09-17 20:56] LABS: Glucose,Whole Blood 131 mg/dL (70-110)
--- NOTE | 2023-09-17 21:18 | P.PN ---
Subjective Progress Note Date: 09/17/23 73-year-old male was brought in because of generalized weakness which was increasing and patient was also apparently confused at home. Patient does not have any fever does have leukocytosis and significantly abnormal urine with elevated white blood cells in the urine. Patient is unable to provide any history to me. Patient creatinine is elevated 2.7 which is his baseline. 09/17/2023 Patient is evaluated in follow up. Not answering questions. Does not appear to be in any pain. Continues on IV ceftriaxone. He is pending urine culture. Has been afebrile. BUN 29, creatinine 2.01. Patient failed his voiding trial today and indwelling catheter has been replaced. Review of systems: Unable to obtain due to his clinical condition PHYSICAL EXAMINATION: GENERAL: The patient is alert unable to assess patient's orientation, not in any acute distress. Well developed, well nourished. HEENT: Pupils are round and equally reacting to light. EOMI. No scleral icterus. No conjunctival pallor. Normocephalic, atraumatic. No pharyngeal erythema. No thyromegaly. CARDIOVASCULAR: S1 and S2 present. No murmurs, rubs, or gallops. PULMONARY: Chest is clear to auscultation, no wheezing or crackles. ABDOMEN: Soft, nontender, nondistended, normoactive bowel sounds. No palpable organomegaly. MUSCULOSKELETAL: No joint swelling or deformity. EXTREMITIES: No cyanosis, clubbing, or pedal edema. NEUROLOGICAL significant generalized weakness does not appear to have any focal deficits although exam is limited SKIN: No rashes. Assessment and plan -Toxic encephalopathy chest x-ray did not show any pneumonia possibility of UTI urine cultures will be obtained patient will be started on Rocephin 1 g daily because of poor renal function -Chronic kidney disease stage IV -Urinary retention requiring indwelling limon catheter. rule out obstructive uropathy. Renal ultrasound ordered. -Paroxysmal atrial fibrillation presently heart rate is controlled and patient is sinus rhythm patient will be resumed on home regimen along with Eliquis -Type 2 diabetes mellitus patient will be on sliding scale insulin hold off linagliptin -Sleep apnea continue CPAP machine -Benign prostatic hypertrophy: Tamsulosin DVT prophylaxis: Patient is on Eliquis which will be continued The impression and plan of care has been dictated by Latonia Matta, Nurse Practitioner as directed. Dr. Haresh MD I have performed a history and physical examination and medical decision making of this patient, discussed the same with the dictator, and agree with the dictators assessment and plan as written, documented as a scribe. Based on total visit time, I have performed more than 50% of this visit. Objective - Vital Signs Vital signs: Vital Signs Temp 98.3 F 09/17/23 13:44 Pulse 60 09/17/23 13:44 Resp 16 09/17/23 13:44 BP 117/70 09/17/23 13:44 Pulse Ox 100 09/17/23 13:44 FiO2 Intake & Output 09/16/23 09/17/23 09/17/23 18:59 06:59 18:59 Intake Total 900 650 Output Total 800 Balance 100 650 Weight 85.729 kg Intake: Intake, IV Titration 900 650 Amount Sodium Chloride 0.9% 1, 900 600 000 ml @ 75 mls/hr IV . [id number] NATALYA Rx#:[id number] cefTRIAXone 1 gm In 50 Sodium Chloride 0.9% 50 ml @ 100 mls/hr IVPB Q24HR NATALYA Rx#:[id number] Output: Urine 800 Uretheral ([place]imon) 800 Other: Voiding Method Indwelling Catheter - Labs CBC & Chem 7: 09/16/23 06:38 09/17/23 11:32 Labs: Abnormal Lab Results - Last 24 Hours (Table) 09/16/23 09/16/23 09/17/23 Range/Units 17:01 20:58 06:06 Chloride (98-107) mmol/L Carbon Dioxide (22-30) mmol/L BUN (9-20) mg/dL Creatinine (0.66-1.25) mg/dL POC Glucose (mg/dL) 122 H 123 H 111 H (70-110) mg/dL 09/17/23 09/17/23 Range/Units 11:12 11:32 Chloride 118 H (98-107) mmol/L Carbon Dioxide 14 L (22-30) mmol/L BUN 29 H (9-20) mg/dL Creatinine 2.01 H (0.66-1.25) mg/dL POC Glucose (mg/dL) 117 H (70-110) mg/dL Assessment and Plan Time with Patient: Less than 30
[2023-09-18 06:19] LABS: Glucose,Whole Blood 103 mg/dL (70-110)
--- NOTE | 2023-09-18 09:05 | US ---
EXAMINATION TYPE: US kidneys/renal and bladder DATE OF EXAM: 09/18/2023 COMPARISON: US 03/15/23 CLINICAL INDICATION: Male, 73 years old with history of acute kidney injury, retention; ДМИТРИЙ, retentio n EXAM MEASUREMENTS: Right Kidney: inferior pole obscured, unable to obtain measurements Left Kidney: 9.9x5.4x5.9 cm Right Kidney: Inferior pole obscured by bowel gas Left Kidney: largest cyst measures: 2.7x3.3x2.5cm mid to inferior pole. Bladder: bladder not fully distended, cath in place. Wall measures up to 0.8cm with a focal heterogen ous wall thickening at the right posterior wall measuring up to 2.0 cm Exam limited by bowel gas, body habitus, and patient cooperation IMPRESSION: 1. Limited visualization right kidney due to bowel gas. 2. Left renal simple appearing cyst. 3. Nondistended urinary bladder. Asymmetric wall thickening cannot be excluded. Follow-up can be perf ormed as clinically indicated.
--- NOTE | 2023-09-18 11:44 | P.CN ---
Psychiatric Consult - . Consult date: 09/18/23 (Follow-up) Consult:: IDENTIFYING DATA: This patient is a 73 year old male. REASON FOR CONSULT: Psychiatry was consulted for "depression". Mr. Schafer was seen for an initial evaluation on 09/16/23. INTERVAL HISTORY: Mr. Schafer was seen at the bedside this morning. Upon entry he was lying in bed with his head covered by the sheet; he woke easily after gently tapping his foot and was willing to engage. He shared that he has difficulty hearing but was able to converse with a loud speaking voice at the right side of his bed. Mr. Schafer reports feeling "tired" today. However, he said his mood is "great," and he denies experiencing depression or persistent sadness. He shared that he transitioned to [facility] from his own apartment after sustaining several falls. After the last fall he was told it was unsafe for him to live alone. He feels he's having a good experience at [facility] and is treated well by the staff. He said "they're great. Everyone smiles at me all the time." During my visit he laughed and made a joke about the care facility staff. When asked about his decreased appetite he feels "my stomach shrank." He shared that he used to be able to eat three plates but now can only eat one. Mr. Schafer denied experiencing anxiety or persistent worry. He still finds enjoyment in things. He likes to watch TV but is unable to do so as his glasses are at his care facility. He denies experiencing psychotic symptoms. He also denied suicidal and homicidal ideation when asked directly. PAST PSYCHIATRIC HISTORY: Patient denies past psychiatric history including: outpatient treatment, psychiatric medications, inpatient admissions, and no history of suicide attempts. PAST MEDICAL HISTORY: (per admission H&P) Past Medical History: Atrial Fibrillation, Heart Failure, Diabetes Mellitus, Hearing Disorder / Deafness, Hypertension, Memory Impairment, Osteoarthritis (OA), Renal Disease, Sleep Apnea/CPAP Additional Past Medical History / Comment(s): IDDM type II, [place] bilaterally- reports he no longer has hearing aid History of Any Multi-Drug Resistant Organisms: None Reported Past Surgical History: Ablation, Heart Catheterization, Joint Replacement, Orthopedic Surgery, Pacemaker Additional Past Surgical History / Comment(s): R eye surgery/lens implant, colonoscopy. ALLERGIES: Codeine INTERIM CHANGES IN FAMILY/SOCIAL/CHEMICAL DEPENDENCY HISTORIES: None (see 09/16/23 psychiatric consult note for full history) MENTAL STATUS EXAM: General Appearance: Upon entering the room patient was asleep with the blanket covering his head he woke after calling his name and gently tapping his foot. Patient appeared to be stated age dressed in hospital attire. He had poor dentition and fair hygiene. Behavior: Patient is calmly lying in bed without any agitated behavior. Speech: Patient's speech is fluent and nonpressured. Articulation impaired by poor dentition. Mood/Affect: Patient reports their mood is "great", affect is congruent, euthymic, and intermittently bright with smiling. Suicidality/Homicidality: Patient denies having any suicidal or homicidal ideation intent or plan. Perceptions: Patient denies any visual hallucinations and denies any auditory hallucinations Though content/process: There is no evidence of any delusional thought content and thought process is linear and goal-directed. Memory and concentration: Alert and oriented to person and location "hospital". Patient also knows that he is in the hospital in [place]. When asked about the reason for his admission he was unable to provide details. He also was not able to state the date as he said "I do not keep up with that." Attempted to get him to do a math calculation to assess attention, concentration, and cognition and he stated "the only math I'm good at is money". Impaired recent recall though was able to provide slightly more remote details about his transition to the assisted living facility and his sister's role in helping manage his finances. Judgment and insight: fair IMPRESSIONS: Mr. Anthony Schafer is a 73-year-old man with a history of multiple chronic medical problems including anemia, CKD stage IV, hearing impairment, and possible underlying neurocognitive disorder who presented due to concerns for weakness and poor appetite. Medical workup is ongoing. There has been concern that patient may be experiencing depression which was thought to be contributing to his decrease in appetite. He was initially seen by psychiatry on 09/16/2023 and today's evaluation was to follow-up and reassess his status. During our interaction Mr. Clemons was lively and engaged he shared a few jokes in response to my questions and denied feeling depressed or having persistently low mood. While he does endorse decreased appetite he does not endorse experiencing anhedonia or other mood symptoms. He denied anxiety or persistent worry and denied having auditory or visual hallucinations there were no symptoms consistent with psychosis. He denied experiencing suicidal ideation and is not experiencing homicidal ideation. His difficulty with orientation and recall is consistent with delirium. - Delirium, likely multifactorial - Rule out major neurocognitive disorder, various etiologies PLAN: -At this time patient DOES NOT meet criteria for inpatient psychiatric admission. -There is concern about patient's lack of decision-making capacity. This was not formally assessed today as there was no specific clinical decision he was being tasked with, but I would recommend assessing patient's extent of understanding and ability to communicate the risks, benefits, and alternatives to treatment. If he is determined to lack capacity for that decision, recommend consulting with a surrogate decision-maker. -Delirium precautions recommended with patient including - avoiding use of narcotics and AIRPORT DRIVER sedatives, limit anticholinergic medications when possible, frequent re-orientation, minimize use of restraints, open window shades during the day and close them at night - Continue mirtazapine 7.5 mg at bedtime as this may help with appetite; if patient is not experiencing appetite benefits and is noticing more daytime tiredness, may discontinue. - Please obtain patient's glasses from his care facility if possible; multiple sensory deficits (i.e., visual and hearing) can delay the time to recovery in patients with delirium; patient does not currently have hearing aids if other heaing supplemental devices are available please utilize these when communicating with patient -Communicated plan to patient's nurse -Psychiatry will sign off at this time -Please contact with any questions. 09/18/23 09:22 09/18/23 11:25 09/18/23 11:26 09/18/23 11:27 09/18/23 11:41
[2023-09-18 11:52] LABS: HCT 24.1 % (39.0-53.0); HGB 7.7 gm/dL (13.0-17.5); MCH 30.9 pg (25.0-35.0); MCHC 32.1 g/dL (31.0-37.0); MCV 96.3 fL (80.0-100.0); Mean Platelet Volume 8.5; Platelet Count 323 k/uL (150-450); RDW 13.5 % (11.5-15.5); WBC 8.5 k/uL (3.8-10.6)
[2023-09-18 12:02] LABS: Glucose,Whole Blood 109 mg/dL (70-110)
[2023-09-18 12:23] LABS: BUN/Creat Ratio 12.32 Ratio (12.00-20.00); Blood Urea Nitrogen 23.4 mg/dL (9.0-27.0); Calcium 8.3 mg/dL (8.7-10.3); Carbon Dioxide 15.1 mmol/L (21.6-31.8); Chloride 114 mmol/L (96-109); Glucose 102 mg/dL (70-110); Potassium 4.1 mmol/L (3.5-5.5); Sodium 141 mmol/L (135-145)
[2023-09-18 16:26] LABS: Glucose,Whole Blood 150 mg/dL (70-110)
[2023-09-18] MEDS: LACTATED RINGERS 1,000 ML IV SCH (16:56)
--- NOTE | 2023-09-18 19:51 | P.PN ---
Subjective Progress Note Date: 09/18/23 73-year-old male was brought in because of generalized weakness which was increasing and patient was also apparently confused at home. Patient does not have any fever does have leukocytosis and significantly abnormal urine with elevated white blood cells in the urine. Patient is unable to provide any history to me. Patient creatinine is elevated 2.7 which is his baseline. 09/17/2023 Patient is evaluated in follow up. Not answering questions. Does not appear to be in any pain. Continues on IV ceftriaxone. He is pending urine culture. Has been afebrile. BUN 29, creatinine 2.01. Patient failed his voiding trial today and indwelling catheter has been replaced. 09/18/2023 Patient evaluated today in follow up. Resting comfortably in bed. He states he has back pain. He is tolerating diet. Urine culture is negative. He will continue on IV ceftriaxone and no further antibiotics needed on discharge. Renal ultrasound shows left renal simple appearing cyst, nondistended urinary bladder, asymmetric wall thickening cannot be excluded. Creatinine down to 1.9. Hemoglobin 7.7. Review of systems: Unable to obtain due to his clinical condition PHYSICAL EXAMINATION: GENERAL: The patient is alert unable to assess patient's orientation, not in any acute distress. Well developed, well nourished. HEENT: Pupils are round and equally reacting to light. EOMI. No scleral icterus. No conjunctival pallor. Normocephalic, atraumatic. No pharyngeal erythema. No thyromegaly. CARDIOVASCULAR: S1 and S2 present. No murmurs, rubs, or gallops. PULMONARY: Chest is clear to auscultation, no wheezing or crackles. ABDOMEN: Soft, nontender, nondistended, normoactive bowel sounds. No palpable organomegaly. MUSCULOSKELETAL: No joint swelling or deformity. EXTREMITIES: No cyanosis, clubbing, or pedal edema. NEUROLOGICAL significant generalized weakness does not appear to have any focal deficits although exam is limited SKIN: No rashes. Assessment and plan -Toxic encephalopathy chest x-ray did not show any pneumonia possibility of UTI although urine culture negative will complete course of antibiotics continues on IV ceftriaxone. -Chronic kidney disease stage IV -Urinary retention requiring indwelling limon catheter. rule out obstructive uropathy. Renal ultrasound ordered and reveals no obstructive uropathy; there is -Paroxysmal atrial fibrillation presently heart rate is controlled and patient is sinus rhythm patient continues on eliquis. -Type 2 diabetes mellitus patient will be on sliding scale insulin hold off linagliptin -Sleep apnea continue CPAP machine -Microcytic anemia check iron studies and ferritin level. -Benign prostatic hypertrophy: Tamsulosin DVT prophylaxis: Patient is on Eliquis which will be continued GI prophylaxis Full Code Return to rehab in the next 24 hours. Repeat blood work in the AM The impression and plan of care has been dictated by Latonia Matta, Nurse Practitioner as directed. Dr. Haresh MD I have performed a history and physical examination and medical decision making of this patient, discussed the same with the dictator, and agree with the dictators assessment and plan as written, documented as a scribe. Based on total visit time, I have performed more than 50% of this visit. Objective - Vital Signs Vital signs: Vital Signs Temp 97.5 F L 09/18/23 14:07 Pulse 61 09/18/23 14:07 Resp 15 09/18/23 14:07 BP 160/72 09/18/23 14:07 Pulse Ox 100 09/18/23 14:07 FiO2 Intake & Output 09/18/23 09/18/23 09/19/23 06:59 18:59 06:59 Output Total 525 650 Balance -525 -650 Output: Urine 525 650 Other: Voiding Method Indwelling Catheter - Labs CBC & Chem 7: 09/18/23 06:59 09/18/23 06:59 Labs: Abnormal Lab Results - Last 24 Hours (Table) 09/17/23 09/18/23 09/18/23 Range/Units 20:54 06:59 06:59 RBC 2.50 L (4.30-5.90) m/uL Hgb 7.7 L (13.0-17.5) gm/dL Hct 24.1 L (39.0-53.0) % Chloride 114 H (96-109) mmol/L Carbon Dioxide 15.1 L (21.6-31.8) mmol/L Creatinine 1.9 H (0.6-1.5) mg/dL Est GFR (CKD-EPI) 37 L (>=60) POC Glucose (mg/dL) 131 H (70-110) mg/dL Calcium 8.3 L (8.7-10.3) mg/dL 09/18/23 Range/Units 16:25 RBC (4.30-5.90) m/uL Hgb (13.0-17.5) gm/dL Hct (39.0-53.0) % Chloride (96-109) mmol/L Carbon Dioxide (21.6-31.8) mmol/L Creatinine (0.6-1.5) mg/dL Est GFR (CKD-EPI) (>=60) POC Glucose (mg/dL) 150 H (70-110) mg/dL Calcium (8.7-10.3) mg/dL Microbiology - Last 24 Hours (Table) 09/17/23 14:57 Urine Culture - Final Urine,Catheterized 09/16/23 14:50 Blood Culture - Preliminary Blood 09/16/23 14:45 Blood Culture - Preliminary Blood Assessment and Plan Time with Patient: Less than 30
[2023-09-18 21:11] LABS: Glucose,Whole Blood 206 mg/dL (70-110)
[2023-09-19 00:45] LABS: % Iron Saturation 25.62 (15.00-50.00)
[2023-09-19 05:57] LABS: Glucose,Whole Blood 131 mg/dL (70-110)
[2023-09-19 08:16] VITALS: PULSE 60
[2023-09-19 10:58] LABS: BUN/Creat Ratio 11.41 Ratio (12.00-20.00); Blood Urea Nitrogen 19.4 mg/dL (9.0-27.0); Calcium 8.3 mg/dL (8.7-10.3); Chloride 114 mmol/L (96-109); Glucose 128 mg/dL (70-110); Sodium 140 mmol/L (135-145)
[2023-09-19 11:49] LABS: Glucose,Whole Blood 134 mg/dL (70-110)
--- NOTE | 2023-09-19 12:32 | P.DS ---
Providers Date of admission: 09/15/23 16:32 Attending physician: Miranda Perdue Consults: 09/15/23 16:34 Consult Physician Routine Consulting Provider: Kamran Gibbons Consult Reason/Comments: depression Do you want consulting provider notified?: Already Contacted Primary care physician: Kamran [facility] Course: Final Diagnosis -Toxic encephalopathy chest x-ray did not show any pneumonia possibility of UTI although urine culture negative will complete course of antibiotics while inpatient. -Chronic kidney disease stage IV -Urinary retention requiring indwelling limon catheter. rule out obstructive uropathy. Renal ultrasound ordered and reveals no obstructive uropathy -Bilateral renal cyst and asymmetric wall thickening of the bladder recommend to see urology outpatient. -Paroxysmal atrial fibrillation presently heart rate is controlled and patient is sinus rhythm patient continues on eliquis. -Type 2 diabetes mellitus patient will be on sliding scale insulin hold off linagliptin -Sleep apnea continue CPAP machine -Microcytic anemia check iron studies and ferritin level. -Benign prostatic hypertrophy: Tamsulosin DVT prophylaxis: Patient is on Eliquis which will be continued Discharge Disposition Patient is stable for return to ECF. He will continue on all same home medication with the addition of remeron. Continue with the indwelling catheter on admission. Patient to follow up with urology. He continues on flomax. Repeat blood work 2 to 3 days. Hospital Course This is a 73-year-old male was brought in because of generalized weakness which was increasing and patient was also [facility]. Patient does not have any fever does have leukocytosis and significantly abnormal urine with elevated white blood cells in the urine. Patient is unable to provide any history to me. Patient creatinine is elevated 2.7 which is his baseline. Patient is evaluated in follow up. Not answering questions. Does not appear to be in any pain. Continues on IV ceftriaxone. His urine culture is negative. He was treated with IV ceftriaxone. Has been afebrile. BUN 29, creatinine 2.01. Patient failed his voiding trial today and indwelling catheter has been replaced. Renal ultrasound shows left renal simple appearing cyst, nondistended urinary bladder, asymmetric wall thickening cannot be excluded. He is at baseline mentation. No acute complaints. His creatinine is down to 1.7. He was evaluated by psychiatry who have recommended the addition of remeron. He will return to ECF. Please see medication reconciliation for a list of current medications. Thank you for allowing us to participate in the care of this patient. The impression and plan of care has been dictated by Latonia Matta, Nurse Practitioner as directed. Dr. Haresh MD I have performed a history and physical examination and medical decision making of this patient, discussed the same with the dictator, and agree with the dictators assessment and plan as written, documented as a scribe. Based on total visit time, I have performed more than 50% of this visit. Patient Condition at Discharge: Fair Plan - Discharge Summary Discharge Rx Participant: No New Discharge Prescriptions: New Mirtazapine [Remeron] 7.5 mg PO HS tab Continue Tamsulosin HCl [Flomax] 0.8 mg PO DAILY@0700 Linagliptin [Tradjenta] 5 mg PO DAILY@0700 Omeprazole Magnesium [PriLOSEC OTC] 40 mg PO DAILY@0700 Cholecalciferol [Vitamin D3 (125 Mcg = 5000 Iu)] 125 mcg PO DAILY@0800 Megestrol [Megace] 200 mg PO DAILY@0800 Insulin Aspart (Niacinamide) [Fiasp 100 Unit/ml Flextouch Pen] 6 units SQ DAILY@1600 Aspirin 81 mg PO DAILY@0700 Sodium Bicarbonate 325 mg PO BID Apixaban [Eliquis] 5 mg PO BID@0800,1600 Metoprolol Succinate (ER) [Toprol XL] 25 mg PO DAILY@0800 Insulin Glargine,Hum.rec.anlog [Lantus Solostar Pen] 20 units SQ DAILY@0700 Insulin Aspart (Niacinamide) [Fiasp 100 Unit/ml Flextouch Pen] 12 units SQ DAILY@0700 Atorvastatin [Lipitor] 10 mg PO DAILY@0800 Amiodarone [Cordarone] 100 mg PO DAILY@0800 Discharge Medication List Linagliptin [Tradjenta] 5 mg PO DAILY@0700 01/11/23 [History] Tamsulosin HCl [Flomax] 0.8 mg PO DAILY@0700 01/11/23 [History] Omeprazole Magnesium [PriLOSEC OTC] 40 mg PO DAILY@0700 03/13/23 [History] Amiodarone [Cordarone] 100 mg PO DAILY@0800 09/15/23 [History] Apixaban [Eliquis] 5 mg PO BID@0800,1600 09/15/23 [History] Aspirin 81 mg PO DAILY@69909/15/23 [History] Atorvastatin [Lipitor] 10 mg PO DAILY@79909/15/23 [History] Cholecalciferol [Vitamin D3 (125 Mcg = 5000 Iu)] 125 mcg PO DAILY@79909/15/23 [History] Insulin Aspart (Niacinamide) [Fiasp 100 Unit/ml Flextouch Pen] 6 units SQ DAILY@159909/15/23 [History] Insulin Aspart (Niacinamide) [Fiasp 100 Unit/ml Flextouch Pen] 12 units SQ DAILY@69909/15/23 [History] Insulin Glargine,Hum.rec.anlog [Lantus Solostar Pen] 20 units SQ DAILY@69909/15/23 [History] Megestrol [Megace] 200 mg PO DAILY@79909/15/23 [History] Metoprolol Succinate (ER) [Toprol XL] 25 mg PO DAILY@79909/15/23 [History] Sodium Bicarbonate 325 mg PO BID 09/15/23 [History] Mirtazapine [Remeron] 7.5 mg PO HS tab 09/19/23 [Rx] Follow up Appointment(s)/Referral(s): Kamran Neves DO [Primary Care Provider] - 1-2 days Ambulatory/Diagnostic Orders: Basic Metabolic Panel [LAB.AMB] Time Frame: 3 Days, Location: None Selected Discharge Disposition: TRANSFER TO SNF/ECF
[2023-09-19 14:00] VITALS: BP 180/87; RESP 20; TEMP 98.2
== END 2023-09-19 14:59 | DRG 92 ==
LOC: EC 12:04 → EEVIPCON 12:04 → 5NMEDONC 16:31 → OBSVTOIN 16:32 → 4SSUR 17:14
PROVIDERS: ADMIT Hospitalist; ATTEND Hospitalist
DX: G92.9 Unspecified toxic encephalopathy (principal); F05 Delirium due to known physiological condition; I13.0 Hypertensive heart and chronic kidney disease with heart failure and stage 1 through stage 4 chronic kidney disease, or unspecified chronic kidney disease; N18.4 Chronic kidney disease, stage 4 (severe); R62.7 Adult failure to thrive; G47.33 Obstructive sleep apnea (adult) (pediatric); I48.0 Paroxysmal atrial fibrillation; I50.9 Heart failure, unspecified; R29.6 Repeated falls; R33.8 Other retention of urine; Z79.01 Long term (current) use of anticoagulants; D64.9 Anemia, unspecified; E11.22 Type 2 diabetes mellitus with diabetic chronic kidney disease; F32.A Depression, unspecified; H91.90 Unspecified hearing loss, unspecified ear; N40.1 Benign prostatic hyperplasia with lower urinary tract symptoms; M19.90 Unspecified osteoarthritis, unspecified site; Z79.4 Long term (current) use of insulin; Z79.82 Long term (current) use of aspirin; Z79.84 Long term (current) use of oral hypoglycemic drugs; Z79.899 Other long term (current) drug therapy; Z82.49 Family history of ischemic heart disease and other diseases of the circulatory system; Z87.891 Personal history of nicotine dependence
CPT/HCPCS: 36415; 51702; 71046; 76770; 80048; 80053; 81001; 82728; 83540; 83550; 83605; 83735; 83880; 84100; 84443; 84484; 85025; 85027; 85610; 85730; 87040; 87086; 93005; 96361; 96365; 99285